=== PATIENT | female | born 1950 | race Caucasian/White ===

== ENCOUNTER 2023-11-24 10:54 | Outpatient (AMB) | payer MEDICARE, MEDICAID, SELFPAY ==
--- NOTE | 2023-11-24 11:02 | A.OFFVIS_ITS ---
Intake Vital Signs 11/24/23 11:28 Height 5 ft 5 in Weight 252 lb BMI 41.9 Intake Visit Reasons: [employer]-Left pain-Fell two weeks ago Intake Note: Cathi is a 73 year old female who presents as a new patient with Right hip pain knee pain. Patient states she fell about 2 and half weeks ago. The patient states, I was making my bed when 1 of the sheets let go and I fell directly onto my butt?. The patient states that she has been weight-bearing as tolerated using a rolling walker. She has taken Tylenol and tramadol which gave her mild relief. Most of the discomfort is along the posterior aspect of her right hip. She did undergo right hip hemiarthroplasty surgery in 2017 performed in [place] by another orthopedic surgeon. Allergies bee pollen [BEE STINGS] Allergy (Severe, Verified 11/24/23 11:31) ANAPHYLAXIS nut - unspecified [nut] Allergy (Severe, Verified 11/24/23 11:31) ANAPHYLAXIS Penicillins [PENICILLINS] Allergy (Severe, Verified 11/24/23 11:31) HIVES, THROAT CLOSING shellfish derived Allergy (Severe, Verified 11/24/23 11:31) ANAPHYLAXIS acetaminophen [From PERCOCET] Allergy (Unknown, Verified 11/24/23 11:31) HIVES ciprofloxacin [From CIPRO] Allergy (Unknown, Verified 11/24/23 11:31) HIVES codeine [CODEINE] Allergy (Unknown, Verified 11/24/23 11:31) HIVES fluconazole [From DIFLUCAN] Allergy (Unknown, Verified 11/24/23 11:31) HIVES Sulfa (Sulfonamide Antibiotics) [SULFA(SULFONAMIDE ANTIBIOTICS)] Allergy (Unknown, Verified 11/24/23 11:31) HIVES From CIPRO Allergy (Unknown, Uncoded 05/30/20 17:27) HIVES From FLOVENT HFA Allergy (Unknown, Uncoded 05/30/20 17:27) HIVES From PERCOCET Allergy (Unknown, Uncoded 05/30/20 17:27) HIVES Medication List - Last Reconciled 11/24/23 by Chad Wolff MD albuterol sulfate 90 mcg/actuation 2 puffs inhalation Q6H PRN atorvastatin 20 mg PO DAILY bupropion HCl 300 mg PO QAM cetirizine 10 mg PO DAILY citalopram 40 mg PO DAILY dicyclomine mg PO doxycycline hyclate 100 mg PO BID epinephrine 0.3 mg IM DIRECTED famotidine 20 mg PO DAILY fluticasone propionate 220 mcg/actuation 1 puff inhalation BID furosemide mg PO gabapentin 600 mg PO TID levothyroxine 88 mcg PO DAILY lorazepam 0.5 mg PO DAILY PRN omeprazole 40 mg PO TID topiramate mg PO tramadol 50 mg PO Q6H PRN warfarin mg PO PFSH Surgical History (Updated 11/24/23 @ 11:39 by Kelsy Galdamez CMA) Hx of section H/O: hysterectomy History of surgery on right wrist History of surgery on left wrist History of hip surgery (~2017) Physical Exam Vital Signs: BMI result Body Mass Index 41.9 Const Other: Well-nourished well-developed very friendly female awake alert and oriented x3 in no acute distress Extrem Other: Bilateral lower extremity examination shows good capillary refill, no skin lesions noted, normal sensation light touch Right hip examination shows mild discomfort range of motion, minimal tenderness over her bursa, no overlying skin lesions Results Reviewed Results Reviewed: X-rays of the patient's right hip show a hemiarthroplasty in good position with no signs of loosening, there is a small avulsion fracture along the tip of the greater trochanter of unclear chronicity Assessment & Plan Assessment & Plan (1) Right hip pain: Code(s): M25.551 - Pain in right hip Plan Ms. White presents with right hip discomfort after falling onto the posterior aspect of her right hip 2 weeks ago of unclear etiology. In order to rule out extension of her greater trochanteric avulsion fracture into the proximal femur I will order a CT scan of her right hip. I will contact her by phone once the results are available. She will continue with her activity modifications in the meantime. Feel free to call me at any time should questions regarding her orthopedic management arise. I spent 22 minutes in reviewing the patient's records and imaging studies, seeing the patient and documenting in the medical record. Orders: Orders XR hip RT min 2V Today M25.551 - Pain in right hip XR knee LT 3V Today M25.562 - Pain in left knee CT hip RT wo IV con Today M25.551 - Pain in right hip Coding Level of Care Code New Pt Level 2 (83866) Diagnoses Right hip pain M25.551
[2023-11-24 11:28] VITALS: BMI 41.9
== END 2023-11-24 11:47 | disposition home or self-care (01) ==
PROVIDERS: PCP Internal Medicine; Visit Provider Orthopaedic Surgery
DX: M25.551 Pain in right hip (principal)
CPT/HCPCS: 99202

== ENCOUNTER 2023-11-24 11:18 | Outpatient (REF) | payer MEDICARE, MEDICAID, SELFPAY ==
--- NOTE | ~2023-11-24 | XR_ITS ---
EXAMINATION: XR HIP, RIGHT CLINICAL INFORMATION: Right hip pain. COMPARISON: None available. TECHNIQUE: Single view pelvis with 2 additional views of the right hip. FINDINGS: A right total hip prosthesis is present. The prosthesis is in good position. No evidence of a periprosthetic fracture. There is some chronic changes seen at the greater and lesser trochanters probably secondary to old fracture. Mild degenerative changes are present left hip. XR/XR hip RT min 2V IMPRESSION: Right hip prosthesis in good position without evidence of complication.
== END 2023-11-24 11:19 | disposition home or self-care (01) ==
LOC: HO.HOSX 11:18
PROVIDERS: Visit Provider Orthopaedic Surgery
DX: M25.551 Pain in right hip (principal)
CPT/HCPCS: 73502; 99202

== ENCOUNTER 2024-02-17 06:49 | Outpatient (REF) | payer MEDICARE, MEDICAID, SELFPAY ==
--- NOTE | ~2024-02-17 | XR_ITS ---
EXAMINATION: XR BILATERAL HIPS WITH AP PELVIS CLINICAL INFORMATION: Pain in right hip. COMPARISON: November 24, 2023. TECHNIQUE: 2 AP views of the pelvis as well as frog lateral views of each hip. FINDINGS: Degenerative changes in the imaged lower lumbar spine. Pubic symphysis is maintained. Bones are diffusely demineralized. Redemonstration of right total hip prosthesis with cerclage wire which is stable in position. Hardware appears intact. Redemonstration of lucencies and sequela of possible prior fractures of the right hip in the regions of the greater and lesser trochanters for which correlation with clinical exam recommended to determine further management. Mild degenerative changes in the left hip with joint space narrowing and hypertrophic change. Amorphous soft tissue calcifications are incompletely imaged in the proximal left thigh. Vascular calcifications in the proximal right thigh. Scattered punctate radiodensities overlying the right hemipelvis, increased, possibly related to ingested material. XR/XR hips LANDON min 3V IMPRESSION: 1. Redemonstration of right total hip prosthesis with cerclage wire which is stable in position. Hardware appears intact. Redemonstration of lucencies and sequela of possible prior fractures of the right hip in the regions of the greater and lesser trochanters for which correlation with clinical exam is recommended to determine further management. 2. Mild degenerative changes in the left hip. 3. Amorphous soft tissue calcifications are incompletely imaged in the proximal left thigh. Vascular calcifications in the proximal right thigh. 4. Scattered punctate radiodensities overlying the right hemipelvis, increased, possibly related to ingested material.
== END 2024-02-17 06:50 | disposition home or self-care (01) ==
LOC: HO.HOSX 06:49
PROVIDERS: Visit Provider Orthopaedic Surgery
DX: M25.551 Pain in right hip (principal); M25.562 Pain in left knee
CPT/HCPCS: 73522; 99212

== ENCOUNTER 2024-02-17 11:04 | Outpatient (AMB) | payer MEDICARE, MEDICAID, SELFPAY ==
--- NOTE | 2024-02-17 11:05 | MHC.OFFVIS ---
Intake Visit Reasons: Left Hip OA Intake Note: Cathi 73 yr old female presents today with complaints of mild intermittent discomfort in both of her hips. The patient did undergo right hip hemiarthroplasty surgery in 2017 by another surgeon in [place]. She fell onto her right hip earlier this year and suffered a minimally displaced greater trochanteric fracture. She continues with her morning physical therapy exercises. She takes tramadol once a day for her discomfort. The patient also has chronic low back pain. She wishes to avoid further surgery if possible. She also has intermittent discomfort along the lateral aspect of her left hip. Allergies bee pollen [BEE STINGS] Allergy (Severe, Verified 02/17/24 11:05) ANAPHYLAXIS nut - unspecified [nut] Allergy (Severe, Verified 02/17/24 11:05) ANAPHYLAXIS Penicillins [PENICILLINS] Allergy (Severe, Verified 02/17/24 11:05) HIVES, THROAT CLOSING shellfish derived Allergy (Severe, Verified 02/17/24 11:05) ANAPHYLAXIS acetaminophen [From PERCOCET] Allergy (Unknown, Verified 02/17/24 11:05) HIVES ciprofloxacin [From CIPRO] Allergy (Unknown, Verified 02/17/24 11:05) HIVES codeine [CODEINE] Allergy (Unknown, Verified 02/17/24 11:05) HIVES fluconazole [From DIFLUCAN] Allergy (Unknown, Verified 02/17/24 11:05) HIVES Sulfa (Sulfonamide Antibiotics) [SULFA(SULFONAMIDE ANTIBIOTICS)] Allergy (Unknown, Verified 02/17/24 11:05) HIVES From CIPRO Allergy (Unknown, Uncoded 02/17/24 11:05) HIVES From FLOVENT HFA Allergy (Unknown, Uncoded 02/17/24 11:05) HIVES From PERCOCET Allergy (Unknown, Uncoded 02/17/24 11:05) HIVES Medication List - Last Reconciled 02/17/24 by Chad Wolff MD albuterol sulfate 90 mcg/actuation 2 puffs inhalation Q6H PRN atorvastatin 20 mg PO DAILY bupropion HCl XL 300 mg PO QAM cetirizine 10 mg PO DAILY citalopram 40 mg PO DAILY dicyclomine mg PO epinephrine 0.3 mg IM DIRECTED famotidine 20 mg PO DAILY fluticasone propionate 220 mcg/actuation 1 puff inhalation BID furosemide mg PO gabapentin 600 mg PO TID levothyroxine 88 mcg PO DAILY lorazepam 0.5 mg PO DAILY PRN omeprazole 40 mg PO TID topiramate mg PO tramadol 50 mg PO Q6H PRN warfarin mg PO PFSH Surgical History (Updated 11/24/23 @ 11:39 by Kelsy Galdamez CMA) Hx of section H/O: hysterectomy History of surgery on right wrist History of surgery on left wrist History of hip surgery (~2017) Physical Exam Const Other: Well-nourished well-developed very friendly female awake alert and oriented x3 in no acute distress Extrem Other: Bilateral lower extremity examination shows good capillary refill, no skin lesions noted, normal sensation light touch Right hip examination shows that the surgical incision is well healed, no erythema, minimal discomfort with range of motion, mild tenderness over her greater trochanteric bursa Left hip examination shows minimal tenderness over her bursa, minimal discomfort with range of motion Results Reviewed Results Reviewed: X-rays of the patient's right hip taken today show a hemiarthroplasty in good position with no signs of loosening, there does remain a small avulsion fracture of the greater trochanter with minimal displacement Left hip x-ray show mild joint space narrowing, no acute bony abnormalities Assessment & Plan Assessment & Plan (1) Right hip pain: Code(s): M25.551 - Pain in right hip Category: Medical (2) Left knee pain: Code(s): M25.562 - Pain in left knee Category: Medical Plan Ms. White presents with left hip discomfort due to greater trochanteric bursitis as well as right hip discomfort due to greater trochanteric bursitis as well as a small avulsion fracture from her greater trochanter. The patient does not appear to have any loosening of her hemiarthroplasty. I had a lengthy discussion with the patient regarding the treatment options. At this point the patient's symptoms are tolerable to her. She will continue taking tramadol as needed for her discomfort. She will continue with her home exercise program. She will contact me prior to her follow-up appointment in 2-3 months should any questions or concerns arise. Feel free to call me at any time should questions regarding her orthopedic management arise. I spent 21 minutes in reviewing the patient's records and imaging studies, seeing the patient and documenting in the medical record. Coding Level of Care Code Est Pt Level 3 (50625) Diagnoses Right hip pain M25.551 Left knee pain M25.562
== END 2024-02-17 11:43 | disposition home or self-care (01) ==
PROVIDERS: PCP Internal Medicine; Visit Provider Orthopaedic Surgery
DX: M25.551 Pain in right hip (principal); M25.562 Pain in left knee
CPT/HCPCS: 99213

== ENCOUNTER 2024-05-25 14:06 | Outpatient (AMB) | payer SELFPAY ==
[2024-05-25 14:13] VITALS: BMI 41.9
--- NOTE | 2024-05-25 14:13 | MHC.OFFVIS ---
Vital Signs 05/25/24 14:13 Height 5 ft 5 in Weight 252 lb BMI 41.9 Intake Visit Reasons: O/V Left Hip OA 3 mth follow up Intake Note: Cathi is a 73 year old female that presents herself today for follow up. The patient reports mild intermittent discomfort in both of her hips. She continues walk with a cane. The patient states that in March she did fall and suffer a left humerus fracture. She has been going to physical therapy which has improved her range of motion. Allergies bee pollen [BEE STINGS] Allergy (Severe, Verified 02/17/24 11:05) ANAPHYLAXIS nut - unspecified [nut] Allergy (Severe, Verified 02/17/24 11:05) ANAPHYLAXIS Penicillins [PENICILLINS] Allergy (Severe, Verified 02/17/24 11:05) HIVES, THROAT CLOSING shellfish derived Allergy (Severe, Verified 02/17/24 11:05) ANAPHYLAXIS acetaminophen [From PERCOCET] Allergy (Unknown, Verified 02/17/24 11:05) HIVES ciprofloxacin [From CIPRO] Allergy (Unknown, Verified 02/17/24 11:05) HIVES codeine [CODEINE] Allergy (Unknown, Verified 02/17/24 11:05) HIVES fluconazole [From DIFLUCAN] Allergy (Unknown, Verified 02/17/24 11:05) HIVES Sulfa (Sulfonamide Antibiotics) [SULFA(SULFONAMIDE ANTIBIOTICS)] Allergy (Unknown, Verified 02/17/24 11:05) HIVES From CIPRO Allergy (Unknown, Uncoded 02/17/24 11:05) HIVES From FLOVENT HFA Allergy (Unknown, Uncoded 02/17/24 11:05) HIVES From PERCOCET Allergy (Unknown, Uncoded 02/17/24 11:05) HIVES Medication List - Last Reconciled 05/25/24 by Chad Wolff MD albuterol sulfate 90 mcg/actuation 2 puffs inhalation Q6H PRN atorvastatin 20 mg PO DAILY bupropion HCl XL 300 mg PO QAM cetirizine 10 mg PO DAILY citalopram 40 mg PO DAILY dicyclomine mg PO epinephrine 0.3 mg IM DIRECTED famotidine 20 mg PO DAILY fluticasone propionate 220 mcg/actuation 1 puff inhalation BID furosemide mg PO gabapentin 600 mg PO TID levothyroxine 88 mcg PO DAILY lorazepam 0.5 mg PO DAILY PRN omeprazole 40 mg PO TID topiramate mg PO tramadol 50 mg PO Q6H PRN warfarin mg PO PFSH Surgical History (Updated 11/24/23 @ 11:39 by Kelsy Galdamez CMA) Hx of section H/O: hysterectomy History of surgery on right wrist History of surgery on left wrist History of hip surgery (~2017) Physical Exam Vital Signs: BMI result Body Mass Index 41.9 Extrem Other: Bilateral hip examination shows minimal discomfort with range of motion, mild tenderness over her bursa, no overlying skin lesions Assessment & Plan Assessment & Plan (1) Bilateral hip bursitis: Code(s): M70.71 - Other bursitis of hip, right hip; M70.72 - Other bursitis of hip, left hip Category: Medical Plan Ms. White presents with intermittent discomfort along the lateral aspects of both of her hips due to greater trochanteric bursitis. I had a lengthy discussion with the patient regarding the treatment options. At this point the patient's symptoms are tolerable to her. She will continue with her home exercise program. She will follow up with me on an as-needed basis should her symptoms worsen in any way. Feel free to call me at any time should questions regarding her orthopedic management arise. I spent 22 minutes in reviewing the patient's records and imaging studies, seeing the patient and documenting in the medical record. Coding Level of Care Code Est Pt Level 3 (97521) Complex EM visit Add On G2211 Diagnoses Bilateral hip bursitis M70.71; M70.72
== END 2024-05-25 14:43 | disposition home or self-care (01) ==
PROVIDERS: PCP Internal Medicine; Visit Provider Orthopaedic Surgery
DX: M70.71 Other bursitis of hip, right hip (principal); M70.72 Other bursitis of hip, left hip
CPT/HCPCS: 99213

== ENCOUNTER → 2024-05-25 14:06 | Outpatient (BNVA) | payer MEDICAID, SELFPAY | PROVIDERS: PCP Internal Medicine; Visit Provider Orthopaedic Surgery | DX: M70.71 Other bursitis of hip, right hip (principal); M70.72 Other bursitis of hip, left hip | CPT/HCPCS: 99212 ==

== ENCOUNTER 2024-06-22 15:27 | Emergency (ER) | payer MEDICARE, MEDICAID, SELFPAY ==
--- NOTE | ~2024-06-22 | CT_ITS ---
EXAMINATION: CT HEAD WITHOUT CONTRAST CT FACIAL BONES WITHOUT CONTRAST CT CERVICAL SPINE WITHOUT CONTRAST CLINICAL INFORMATION: Fall. Head strike. Patient on blood thinners. COMPARISON: CT head and cervical spine from 03/29/2012. TECHNIQUE: Imaging was performed from the skull base to vertex without intravenous administration of contrast. In addition, helical noncontrast CT imaging was acquired through the cervical spine and facial bones and source images were reviewed along with axial reconstructions and sagittal and coronal MPRs. This CT examination was performed using dose optimization techniques as appropriate, variously including the following: *Automated exposure control. *Adjustment of mA and/or kV according to patient size (this includes techniques or standardized protocols for targeted exams where dose is matched to indication/reason for exam; i.e. extremities or head). *Use of iterative reconstruction technique. DLP: 1249 mGy-cm FINDINGS: Head: There is no evidence of acute intracranial hemorrhage or edematous territorial infarction. Gonzalez-white matter differentiation is preserved. Scattered and partially confluent hypoattenuation in the periventricular and deep white matter are consistent with moderate to severe microangiopathy. The ventricles are normal in morphology and size. No evidence for obstructive hydrocephalus. No abnormal mass effect or midline shift. No extra-axial fluid collections. Calcific atherosclerotic disease of the intracranial internal carotid and vertebral arteries. No hyperdense vessel sign. No acute soft tissue or osseous abnormalities. Maxillofacial Bones: No evidence of maxillofacial bone fractures. The zygomatic arches remain intact. No nasal bone fracture. The nasal septum remains midline. No evidence of mandibular or maxillary fracture. The mandibular condyles remain well-seated in their respective temporal articular grooves. Normal appearance of the intraconal and extraconal fat. No evidence of traumatic injury to the extraocular musculature or globes. Bilateral lens extractions. Mild mucosal thickening of the paranasal sinuses. The mastoid air cells and middle ear cavities are clear. No layering fluid collections. Multifocal odontogenic enamel erosions and periapical lucencies. Cervical Spine: The atlantooccipital and atlantoaxial articulations remain well aligned. Moderate degenerative arthropathy of the atlantodental articulation. Mild degenerative retrolisthesis of C4 on C5. Otherwise, there is anatomic alignment of the vertebral bodies and posterior elements. No evidence of acute fracture or subluxation. The vertebral body heights are maintained. Advanced degenerative disc disease at C4-C5. Mild to moderate degenerative disc disease at all additional levels. Facet and uncovertebral joint arthropathy leads to osseous encroachment on the neural foramina from C3-C6. There is no prevertebral soft tissue swelling. There is a 1.1 cm hypoattenuating nodule in the left thyroid lobe (no follow-up imaging recommended based on current guidelines at the time of examination). The remaining cervical soft tissues are within normal limits. The lung apices demonstrate no abnormalities. CT/CT cervical spine wo IV con IMPRESSION: 1. No evidence of acute intracranial hemorrhage or edematous territorial infarction. Moderate to severe underlying microangiopathy. 2. No evidence of acute fracture or traumatic subluxation of the cervical spine. Moderate multilevel degenerative spondyloarthropathy of the cervical spine. 3. No evidence of acute fracture of the maxillofacial bones. Electronically signed by: Luis Antonio Amado DO 06/22/2024 05:03 PM EDT
--- NOTE | ~2024-06-22 | XR_ITS ---
EXAMINATION: XR HAND, LEFT CLINICAL INFORMATION: Fall. Pain. Swelling. COMPARISON: None available. TECHNIQUE: Four views of the left hand. FINDINGS: There is osteopenia. No acute abnormality. No fracture or dislocation. Mild joint narrowing of the IP joints of the digits. There are marginal bone spurs at the DIP joints of the fourth and fifth finger. XR/XR hand LT min 3V IMPRESSION: 1. No acute abnormality. 2. Osteopenia. 3. Mild degenerative change of the hand. Electronically signed by: Albin Milton MD 06/22/2024 05:12 PM EDT
--- NOTE | 2024-06-22 15:34 | ED.GENADULT ---
HPI - General Adult General Chief complaint: Fall Stated complaint: catscan of the head/hit her head from PCP Time Seen by Provider: 06/22/24 21:41 Source: patient Limitations: no limitations History of Present Illness ED Provider: Zee erynolds PA-C HPI narrative: 73-year-old female with a history of aortic valve replacement now on Coumadin, presents after fall. [place] had [place] objects in her car, when she turned, she stepped on a rock and subsequently fell striking her head. There was no loss of consciousness. Patient was seen by her primary care, who told her to come to the ER for CT scans. Patient also complains of left hand pain. Related Data Home Medications ?Medication ?Instructions ?Recorded ?Confirmed albuterol sulfate 90 mcg/actuation 2 puff inhalation Q6H PRN wheezing 11/24/23 05/25/24 aerosol inhaler atorvastatin 20 mg tablet 20 mg PO DAILY 11/24/23 05/25/24 bupropion HCl 300 mg 24 hr tablet, 300 mg PO QAM 11/24/23 05/25/24 extended release cetirizine 10 mg tablet 10 mg PO DAILY 11/24/23 05/25/24 citalopram 40 mg tablet 40 mg PO DAILY 11/24/23 05/25/24 dicyclomine 10 mg capsule mg PO 11/24/23 05/25/24 epinephrine 0.3 mg/0.3 mL 0.3 mg IM DIRECTED allergies 11/24/23 05/25/24 injection, auto-injector famotidine 20 mg tablet 20 mg PO DAILY 11/24/23 05/25/24 fluticasone propionate 220 1 puff inhalation BID 11/24/23 05/25/24 mcg/actuation HFA aerosol inhaler furosemide 20 mg tablet mg PO 11/24/23 05/25/24 gabapentin 600 mg tablet 600 mg PO TID 11/24/23 05/25/24 levothyroxine 88 mcg tablet 88 mcg PO DAILY 11/24/23 05/25/24 lorazepam 0.5 mg tablet 0.5 mg PO DAILY PRN anxiety 11/24/23 05/25/24 omeprazole 40 mg capsule,delayed 40 mg PO TID 11/24/23 05/25/24 release topiramate 100 mg tablet mg PO 11/24/23 05/25/24 tramadol 50 mg tablet 50 mg PO Q6H PRN 11/24/23 05/25/24 warfarin 5 mg tablet mg PO 11/24/23 05/25/24 Allergies Allergy/AdvReac Type Severity Reaction Status Date / Time bee pollen [BEE STINGS] Allergy Severe ANAPHYLAXIS Verified 06/22/24 15:38 nut - unspecified [nut] Allergy Severe ANAPHYLAXIS Verified 06/22/24 15:38 Penicillins [PENICILLINS] Allergy Severe HIVES, Verified 06/22/24 15:38 THROAT CLOSING shellfish derived Allergy Severe ANAPHYLAXIS Verified 06/22/24 15:38 acetaminophen [From PERCOCET] Allergy Unknown HIVES Verified 06/22/24 15:38 ciprofloxacin [From CIPRO] Allergy Unknown HIVES Verified 06/22/24 15:38 codeine [CODEINE] Allergy Unknown HIVES Verified 06/22/24 15:38 fluconazole [From DIFLUCAN] Allergy Unknown HIVES Verified 06/22/24 15:38 Sulfa (Sulfonamide Allergy Unknown HIVES Verified 06/22/24 15:38 Antibiotics) [SULFA(SULFONAMIDE ANTIBIOTICS)] From CIPRO Allergy Unknown HIVES Uncoded 06/22/24 15:38 From FLOVENT HFA Allergy Unknown HIVES Uncoded 06/22/24 15:38 From PERCOCET Allergy Unknown HIVES Uncoded 06/22/24 15:38 Review of Systems Constitutional: Constitutional: Denies fever(s) and Denies headache(s) ENT: Denies dizziness and Denies headache(s) Cardiovascular: Cardiovascular: Denies chest pain, Denies syncope, Denies Loss of Consciousness and Denies dyspnea Respiratory: Respiratory: Denies dyspnea Gastrointestinal: Gastrointestinal: Denies nausea and Denies vomiting Musculoskeletal: Musculoskeletal: Reports arthralgias and Reports stiffness Neurologic: Denies dizziness, Denies syncope and Denies headache(s) [facility] Past Medical History Attestation statement: The following information was validated with the patient. Surgical History (Updated 11/24/23 @ 11:39 by Kelsy Galdamez CMA) Hx of section H/O: hysterectomy History of surgery on right wrist History of surgery on left wrist History of hip surgery (~2017) Social History Social History Advance Directives: No Advance Directives Information Provided: Yes Physical Exam ED Vital Signs: Vital Signs - 24 hr 06/22/24 15:35 06/22/24 21:06 Temperature 97.5 F 98.3 F Pulse Rate 81 84 Respiratory Rate 20 17 Blood Pressure 129/56 L 142/61 H Pulse Oximetry 96 97 Oxygen Delivery Method Room Air Room Air BMI result Body Mass Index 40.3 Const Other: Alert, well in appearance, no obvious signs of head trauma on exam Orientation/consciousness: patient oriented x3 Resp Effort & Inspection: normal respiratory effort Cardio Other: Normal peripheral perfusion Skin Other: Warm dry no rash Neuro General: patient oriented x3 and no focal motor deficits Extrem Other: Swelling and ecchymosis noted over the dorsum of the left hand, she has full range of motion in flexion extension of MCP, PIP and DIPJ Psych Other: Calm cooperative NIH Stroke Scale Internal: Initial- Upon Arrival Time: 15:38 Level of Consciousness: Alert Level of Consciousness Questions: Answers both questions correctly Level of Consciousness Commands: Performs both tasks correctly Best Gaze: Normal Visual: No visual loss Facial Palsy: Normal Motor Arm (Right): No drift Motor Arm (Left): No drift Motor Leg (Right): No drift Motor Leg (Left): No drift Limb Ataxia: Absent Sensory: Normal Best Language: No aphasia Dysarthia: Normal Extinction and Inattention: No abnormality Score: 0 Course Course Course Narrative: This is a rapid medical exam performed by Gilmer Allen NP: Additional HPI, ROS, PE not included below will be deferred to primary provider. Patient is a 73-year-old female presenting from PCP office for head CT. States that she fell yesterday, tripped due to back pain. Also fell earlier this week. Yesterday she fell forward and bumped her head on a rock on the ground, has had a headache since. She is on coumadin. Denies LOC. States headache is 7/10 currently. Plan: CT head, facial bones, c-soine Medical Decision Making Medical Decision Making MDM Narrative: 73-year-old female with a history of aortic valve replacement now on Coumadin, presents after fall. Patient [place], she had [place] objects in her car, when she turned, she stepped on a rock and subsequently fell striking her head. There was no loss of consciousness. Patient was seen by her primary care, who told her to come to the ER for CT scans. Patient also complains of left hand pain. Problem: On Coumadin History: Per patient I have considered the following differential diagnoses: Intracranial hemorrhage, cervical spine injury, fracture, dislocation, contusion Plan: The patient is assessment began out in triage, scans of her head neck max face and hand were obtained. Everything is negative. This was a mechanical fall not syncope. She has been ambulatory since the incident, she is eager for discharge. I have independently reviewed the following tests: CT brain, cervical spine and max face:CT HEAD WITHOUT CONTRAST CT FACIAL BONES WITHOUT CONTRAST CT CERVICAL SPINE WITHOUT CONTRAST CLINICAL INFORMATION: Fall. Head strike. Patient on blood thinners. COMPARISON: CT head and cervical spine from 03/29/2012. TECHNIQUE: Imaging was performed from the skull base to vertex without intravenous administration of contrast. In addition, helical noncontrast CT imaging was acquired through the cervical spine and facial bones and source images were reviewed along with axial reconstructions and sagittal and coronal MPRs. This CT examination was performed using dose optimization techniques as appropriate, variously including the following: *Automated exposure control. *Adjustment of mA and/or kV according to patient size (this includes techniques or standardized protocols for targeted exams where dose is matched to indication/reason for exam; i.e. extremities or head). *Use of iterative reconstruction technique. DLP: 1249 mGy-cm FINDINGS: Head: There is no evidence of acute intracranial hemorrhage or edematous territorial infarction. Gonzalez-white matter differentiation is preserved. Scattered and partially confluent hypoattenuation in the periventricular and deep white matter are consistent with moderate to severe microangiopathy. The ventricles are normal in morphology and size. No evidence for obstructive hydrocephalus. No abnormal mass effect or midline shift. No extra-axial fluid collections. Calcific atherosclerotic disease of the intracranial internal carotid and vertebral arteries. No hyperdense vessel sign. No acute soft tissue or osseous abnormalities. Maxillofacial Bones: No evidence of maxillofacial bone fractures. The zygomatic arches remain intact. No nasal bone fracture. The nasal septum remains midline. No evidence of mandibular or maxillary fracture. The mandibular condyles remain well-seated in their respective temporal articular grooves. Normal appearance of the intraconal and extraconal fat. No evidence of traumatic injury to the extraocular musculature or globes. Bilateral lens extractions. Mild mucosal thickening of the paranasal sinuses. The mastoid air cells and middle ear cavities are clear. No layering fluid collections. Multifocal odontogenic enamel erosions and periapical lucencies. Cervical Spine: The atlantooccipital and atlantoaxial articulations remain well aligned. Moderate degenerative arthropathy of the atlantodental articulation. Mild degenerative retrolisthesis of C4 on C5. Otherwise, there is anatomic alignment of the vertebral bodies and posterior elements. No evidence of acute fracture or subluxation. The vertebral body heights are maintained. Advanced degenerative disc disease at C4-C5. Mild to moderate degenerative disc disease at all additional levels. Facet and uncovertebral joint arthropathy leads to osseous encroachment on the neural foramina from C3-C6. There is no prevertebral soft tissue swelling. There is a 1.1 cm hypoattenuating nodule in the left thyroid lobe (no follow-up imaging recommended based on current guidelines at the time of examination). The remaining cervical soft tissues are within normal limits. The lung apices demonstrate no abnormalities. CT/CT head/brain wo IV con IMPRESSION: 1. No evidence of acute intracranial hemorrhage or edematous territorial infarction. Moderate to severe underlying microangiopathy. 2. No evidence of acute fracture or traumatic subluxation of the cervical spine. Moderate multilevel degenerative spondyloarthropathy of the cervical spine. 3. No evidence of acute fracture of the maxillofacial bones. Electronically signed by: Luis Antonio Amado DO 06/22/2024 05:03 PM EDT RP hand xray: XR HAND, LEFT CLINICAL INFORMATION: Fall. Pain. Swelling. COMPARISON: None available. TECHNIQUE: Four views of the left hand. FINDINGS: There is osteopenia. No acute abnormality. No fracture or dislocation. Mild joint narrowing of the IP joints of the digits. There are marginal bone spurs at the DIP joints of the fourth and fifth finger. XR/XR hand LT min 3V IMPRESSION: 1. No acute abnormality. 2. Osteopenia. 3. Mild degenerative change of the hand. Electronically signed by: Albin Milton MD 06/22/2024 05:12 PM EDT RP Discharge Plan Discharge Clinical Impression: Contusion Patient Disposition: Home, Self-Care Instructions: Bone Bruise (ED) Additional Instructions: The CT scan of your face, head and neck were all normal, the x-ray of the hand was normal, you sustained contusions, this is a fancy word for a bruise. See home care instructions. Follow up with your primary care provider as needed Prescriptions: No Action tramadol 50 mg tablet 50 mg PO Q6H PRN atorvastatin 20 mg tablet 20 mg PO DAILY famotidine 20 mg tablet 20 mg PO DAILY levothyroxine 88 mcg tablet 88 mcg PO DAILY citalopram 40 mg tablet 40 mg PO DAILY furosemide 20 mg tablet PO gabapentin 600 mg tablet 600 mg PO TID bupropion HCl 300 mg tablet extended release 24 hr 300 mg PO QAM dicyclomine 10 mg capsule PO topiramate 100 mg tablet PO fluticasone propionate 220 mcg/actuation HFA aerosol inhaler 1 puff inhalation BID lorazepam 0.5 mg tablet 0.5 mg PO DAILY PRN (Reason: anxiety) warfarin 5 mg tablet PO epinephrine 0.3 mg/0.3 mL auto-injector 0.3 mg IM DIRECTED albuterol sulfate 90 mcg/actuation HFA aerosol inhaler 2 puff inhalation Q6H PRN (Reason: wheezing) omeprazole 40 mg capsule,delayed release(DR/EC) 40 mg PO TID cetirizine 10 mg tablet 10 mg PO DAILY Print Language: Frisian
[2024-06-22 15:35] VITALS: BP 129/56; PULSE 81; RESP 20; TEMP 36.4; O2SAT 96; BMI 40.3
[2024-06-22 21:06] VITALS: BP 142/61; PULSE 84; RESP 17; TEMP 36.8; O2SAT 97
[2024-06-22 22:14] VITALS: BP 142/61; PULSE 84; RESP 17; TEMP 36.8; O2SAT 97
== END 2024-06-22 22:47 | disposition home or self-care (01) ==
PROVIDERS: Emergency Provider Emergency Medicine; PCP Internal Medicine
DX: S60.222A Contusion of left hand, initial encounter (principal); R51.9 Headache, unspecified; M54.2 Cervicalgia; M79.642 Pain in left hand; W01.0XXA Fall on same level from slipping, tripping and stumbling without subsequent striking against object, initial encounter; Y93.89 Activity, other specified; Y92.89 Other specified places as the place of occurrence of the external cause; Y99.8 Other external cause status; Z79.899 Other long term (current) drug therapy
CPT/HCPCS: 70450; 70486; 72125; 73130; 99283; 99284

== ENCOUNTER 2024-08-22 14:11 | Outpatient (AMB) | payer MEDICAID, SELFPAY ==
--- NOTE | 2024-08-22 14:55 | A.OFFVIS_ITS ---
Vital Signs 08/22/24 14:57 Height 5 ft 5 in Weight 233 lb BMI 38.8 Intake Visit Reasons: O/V Left Hip OA 3 mth follow up Intake Note: Cathi is a 74 year old female that presents herself today for follow up on her left hip osteoarthritis. She reports mild intermittent discomfort along the lateral aspect of her left hip. The patient is most concerned today about pro gressively worsening low back pain. She states that she has seen Dr. Acosta in the past. She states that she is due to get an MRI of her lumbar spine over the next few weeks. She continues to walk with a cane. Allergies bee pollen [BEE STINGS] Allergy (Severe, Verified 08/22/24 14:58) ANAPHYLAXIS nut - unspecified [nut] Allergy (Severe, Verified 08/22/24 14:58) ANAPHYLAXIS Penicillins [PENICILLINS] Allergy (Severe, Verified 08/22/24 14:58) HIVES, THROAT CLOSING shellfish derived Allergy (Severe, Verified 08/22/24 14:58) ANAPHYLAXIS acetaminophen [From PERCOCET] Allergy (Unknown, Verified 08/22/24 14:58) HIVES ciprofloxacin [From CIPRO] Allergy (Unknown, Verified 08/22/24 14:58) HIVES codeine [CODEINE] Allergy (Unknown, Verified 08/22/24 14:58) HIVES fluconazole [From DIFLUCAN] Allergy (Unknown, Verified 08/22/24 14:58) HIVES Sulfa (Sulfonamide Antibiotics) [SULFA(SULFONAMIDE ANTIBIOTICS)] Allergy (Unknown, Verified 08/22/24 14:58) HIVES From CIPRO Allergy (Unknown, Uncoded 08/22/24 14:58) HIVES From FLOVENT HFA Allergy (Unknown, Uncoded 08/22/24 14:58) HIVES From PERCOCET Allergy (Unknown, Uncoded 08/22/24 14:58) HIVES Medication List - Last Reconciled 08/22/24 by Chad Wolff MD albuterol sulfate 90 mcg/actuation 2 puffs inhalation Q6H PRN atorvastatin 20 mg PO DAILY bupropion HCl XL 300 mg PO QAM cetirizine 10 mg PO DAILY citalopram 40 mg PO DAILY dicyclomine mg PO epinephrine 0.3 mg IM DIRECTED famotidine 20 mg PO DAILY fluticasone propionate 220 mcg/actuation 1 puff inhalation BID furosemide mg PO gabapentin 600 mg PO TID levothyroxine 88 mcg PO DAILY lorazepam 0.5 mg PO DAILY PRN omeprazole 40 mg PO TID topiramate mg PO tramadol 50 mg PO Q6H PRN warfarin mg PO PFSH Surgical History (Updated 11/24/23 @ 11:39 by Kelsy Galdamez CMA) Hx of section H/O: hysterectomy History of surgery on right wrist History of surgery on left wrist History of hip surgery (~2017) Social History Alcohol intake: never Patient Tobacco Use Status: Current everyday Tobacco user Tobacco use type: Cigarette Physical Exam Vital Signs: BMI result Body Mass Index 38.8 Const Other: Well-nourished well-developed very friendly female awake alert and oriented x3 in no acute distress Extrem Other: Left hip examination shows slightly decreased range of motion when compared to her right hip, mild pain with range of motion, no tenderness over her bursa Results Reviewed Results Reviewed: X-rays of the patient's right hip taken today show a hemiarthroplasty in good position with no signs of loosening, bony trabeculae crossing the previous greater trochanteric fracture site; left hip x-ray show moderate diffuse joint space narrowing, no acute bony abnormalities Assessment & Plan Assessment & Plan (1) Left hip pain: Code(s): M25.552 - Pain in left hip Category: Medical Plan Ms. White presents with intermittent left hip discomfort due to moderate degenerative joint disease. She also has low back pain which radiates down her right leg possibly due to lumbar stenosis or a disc herniation. At this point the patient's left hip pain is tolerable to her. She will follow up for her lumbar spine MRI as scheduled. She will follow up with me on an as-needed basis should her hip pain worsen in any way. Feel free to call me at any time should questions regarding her orthopedic management arise. I spent 20 minutes in reviewing the patient's records and imaging studies, seeing the patient and documenting in the medical record. Orders: Orders XR hip RT min 2V Today M25.551 - Pain in right hip Coding Level of Care Code Est Pt Level 3 (11189) Complex EM visit Add On G2211 Diagnoses Left hip pain M25.552
[2024-08-22 14:57] VITALS: BMI 38.8
== END 2024-08-22 15:27 | disposition home or self-care (01) ==
PROVIDERS: PCP Internal Medicine; Visit Provider Orthopaedic Surgery
DX: M25.552 Pain in left hip (principal)
CPT/HCPCS: 99213

== ENCOUNTER 2024-08-22 15:58 | Outpatient (REF) | payer MEDICARE, MEDICAID, SELFPAY ==
--- NOTE | ~2024-08-22 | XR_ITS ---
EXAMINATION: XR HIP RIGHT CLINICAL INFORMATION: Pain in right hip M25.551. COMPARISON: XR Right hip 11/24/2023 TECHNIQUE: Two views of the right hip. FINDINGS: Redemonstrated right hip arthroplasty with usual position and alignment. No radiographic evidence of acute periprosthetic fracture. No radiographic findings to suggest hardware complications. Cerclage wire in the proximal femur. Similar appearance of deformity of the greater and lesser trochanter.. Mild left hip arthritis. Diffuse bone demineralization. No acute fractures otherwise seen in the visualized bones. No suspicious soft tissue calcification. XR/XR hip RT min 2V IMPRESSION: Right hip arthroplasty with usual position and alignment. No radiographic evidence of complications. Study is assigned/presented to me for interpretation on Sep 29, 2024 Electronically signed by: Dagoberto Maldonado MD 09/29/2024 10:55 AM SHARON GILBERT
== END 2024-08-22 15:59 | disposition home or self-care (01) ==
LOC: HO.HOSX 15:58
PROVIDERS: Visit Provider Orthopaedic Surgery
DX: M25.551 Pain in right hip (principal)
CPT/HCPCS: 73502; 99212

== ENCOUNTER 2025-07-04 14:21 | Outpatient (AMB) | payer MEDICARE, MEDICAID, SELFPAY ==
--- OUTSIDE RECORDS SUMMARY | 2025-07-03 15:18 | XMS_ITS | Encounter Summary ---
Author Organization [facility] Address [address] [place] [address] Care Team Providers Care Admissions Clinician Name Role Phone Mary Ann Hickman MD Primary Care Provider [phone] Reason for Visit * Imaging (Routine) - Canceled Specialty Diagnoses / Procedures Referred By Justin dawn Referred To Contact Radiology Diagnoses Encounter for screening mammogram for breast cancer Procedures MG Mammo Digital Screening w Kervin bilat [facility], Self Referral [facility] Referral ID Status Reason Start Date Expiration Date V isits Requested Visits Authorized [id number] Canceled 06/29/2024 06/29/2025 1 1 Encounter Details Date Type Department Care Team (Latest Contact Info) Description 07/03/2025 3:18 PM EDT - 07/03/2025 11:59 PM EDT Hospital Encounter Radiology Department - [address] [phone] Encounter for screening mammogram for breast cancer Discharge Disposition: Home or Self Care Social History Tobacco Use Types Packs/Day Years Used Date Smoking Tobacco: Former Cigarettes Smokeless Tobacco: Never Alcohol Use Standard Drinks/Week Comments No 0 (1 standard drink = 0.6 oz pur e alcohol) Housing Instability Answer Date Recorde d Are you worried that in the next 2 months you may not have stable housing? No 02/28/2025 Food Access & Nutrition Answer Date Rec orded Do you have access to a vari ety of food including fruits and vegetables? No 02/28/2025 Access to Healthcare Answer Date Record ed Within the last 3 months, ho w many times did you visit the emergency department for your medical care? 5 02/28/2025 Health Literacy Answer Date Recorded How often do you need to hav e someone help you when you read instructions, pamphlets, or other written material from your doctor or pharmacy? Never 02/28/2025 Caregiver: How often do you need to have someone help you when you read instructions, pamphlets, or other written material from your doctor or pharmacy? Not on file 02/28/2025 Financial Risk Answer Date Recorded How hard is it for you to pa y for the very basics like food, housing, medical care, and air conditioning / heating? Very hard 02/28/2025 Transportation Answer Date Recorded Has the lack of transportati on kept you from meetings, work, or from getting things needed for daily living? No Has the lack of transportati on kept you from medical appointments or from getting medications? No 02/28/2025 Social Isolation Answer Date Recorded How often do you feel lonely or isolated from th ose around you? Never 02/28/2025 Food Risk Answer Date Recorded Within the past 12 months we worried whether our food would run out before we got money to buy more. Sometimes true 025 Within the past 12 months th e food we bought just didn't last and we didn't have money to get more. Never true 02/28/2025 Dependent Care Answer Date Recorded Do you need help finding or paying for care for your loved ones. For example, director child development center or elderly care for an older adult? Yes 02/28/2025 Education Answer Date Recorded Do you think completing more education or training, like finishing a GED, going to college, or learning a trade, would be helpful for you? No 02/28/2025 Employment and Income Answer Date Recor ded During the last four weeks, have you been actively looking for work? No 02/28/2025 Living Situation Answer Date Recorded What is your living situation? Unrecognized valu e 02/28/2025 Comments No Sex and Gender Information Value Date Recorded Sex Assigned at Not on file Legal Sex Female 1:07 AM EST Gender Identity Not on file Sexual Orientation Not on file documented as of this encounter Medications at Time of Discharge acetaminophen (TYLENOL) 500 mg tablet Take 1 tablet (500 mg total) by mouth. albuterol HFA (PROAIR HFA ; PROVENTIL HFA ; VENTOLIN HFA) 90 mcg/actuation inhaler Inhale 2 puffs by mouth. 01/17/2024 ASCORBIC ACID, VITAMIN C, ORAL Take by mouth. atorvastatin (LIPITOR) 20 mg tablet Take 1 tablet (20 mg total) by mouth 1 (one) time each day. 90 tablet 1 05/11/2025 buPROPion XL (WELLBUTRIN XL) 300 mg 24 hr tablet Take 1 tablet (300 mg total) by mouth 1 (one) time each day in the morning. 90 tablet 1 04/03/2025 CALCIUM CITRATE-VITAMIN D3 ORAL Take by mouth 1 (one) time each day. cetirizine (ZyrTEC) 10 mg tablet Take 1 tablet (10 mg total) by mouth. 04/09/2020 citalopram (CeleXA) 40 mg tablet Take 1 tablet (40 mg total) by mouth 1 (one) time each day. 90 tablet 1 04/05/2025 clotrimazole (LOTRIMIN) 1 % cream Apply topically 2 (two) times a day. 30 g 3 06/06/2025 cyanocobalamin (VITAMIN B-12) 1,000 mcg tablet Take 1 tablet (1,000 mcg total) by mouth. diphenhydrAMINE (BENADRYL) 25 mg tablet Take 1 tablet (25 mg total) by mouth 1 (one) time each day if needed. famotidine (PEPCID) 20 mg tablet Take 1 tablet (20 mg total) by mouth 2 (two) times a day. 180 tablet 04/24/2025 ferrous sulfate 325 mg (65 mg iron) EC tablet Take 1 tablet (325 mg total) by mouth 1 (one) time each day with breakfast. Do not crush, chew, or split. 90 each 1 03/01/2025 fluticasone propionate (FLONASE) 50 mcg/actuation nasal spray Administer 2 sprays into affected nostril(s). 01/22/2021 gabapentin (NEURONTIN) 600 mg tablet Take 1 tablet (600 mg total) by mouth 3 (three) times a day. 270 tablet 04/17/2025 levothyroxine (SYNTHROID, LEVOTHROID) 88 mcg tablet Take 1 tablet (88 mcg total) by mouth 1 (one) time each day. 01/04/2024 magnesium 250 mg tablet Take 1 tablet by mouth 1 (one) time each day. mirabegron (MYRBETRIQ) 25 mg 24 hr tablet Take 1 tablet (25 mg total) by mouth 1 (one) time each day. 30 each 3 06/07/2025 multivitamin (MULTIPLE VITAMINS ORAL) Take by mouth. nitroglycerin (NITROSTAT) 0.[address] 1 tablet (0.4 mg total) under the tongue every 5 (five) minutes if needed for chest pain. 90 tablet 03/01/2025 Prolia 60 mg/mL syringe syringe Inject 1 mL (60 mg total) under the skin. 10/31/2021 topiramate (TOPAMAX) 100 mg tablet Take 1 tablet (100 mg total) by mouth. 100 mg in AM and 200 mg in PM for headache prophylaxis 03/15/2020 vitamin B complex (B COMPLEX ORAL) Take by mouth. warfarin (COUMADIN) 5 mg tablet TAKE 2 TO 3 TABLETS BY MOUTH EVERY DAY. MAY CAUSE HEAVY BLEEDING.TK AT THE SAME TIME EVERY_DAY. DO NOT CHANGE DIETARY HABITS 270 tablet 1 06/04/2025 documented as of this encounter Discharge Disposition Disposition Code Departure Means Destination Home or Self Care documented in this encounter Plan of Treatment Upcoming Encounters Date Type Department Care Team (Late st Contact Info) Description 07/05/2025 2:45 PM EDT Clinical Support [facility] [address] [phone] 07/18/2025 11:00 AM EST Office Visit Orthopedic Surgery [facility] [address] [phone] Rebel Acharya DPM [address] [phone] 09/10/2025 3:15 PM EST Office Visit Urogynecology [address] [phone] Stefanie Alvarado MD [address] [place] [address] [address] [place] [address] 09/18/2025 11:30 AM EST Office Visit [address] [phone] Mary Ann Hickman MD [address] [place] [address] documented as of this encounter Procedures Procedure Name Priority Date/Time Associated Diagnosis Comments MG MAMMO DIGITAL SCREENING W KERVIN BILAT Routine 07/03/2025 3:30 PM EDT Encounter for screening mammogram for breast cancer documented in this encounter Results * (ABNORMAL) MG Mammo Digital Screening w Kervin bilat (07/03/2025 3:30 PM EDT) Anatomical Region Laterality Modality Breast Bilateral Mammography 07/04/2025 4:49 PM EDT Impressions 07/04/2025 4:52 PM EDT 1. Left: No mammographic evidence of malignancy 2. Right: Indeterminate medial posterior depth focal asymmetry 3. Scattered fibroglandular tissue BI-RADS CATEGORY: 0 - INCOMPLETE - NEED ADDITIONAL IMAGING EVALUATION RECOMMENDATION: Additional right breast imaging recommended. Right breast CC and MLO spot compression, full-field ML, targeted ultrasound Mammo Location: [facility], [address] [place] [address], [address], . -------- FINAL REPORT -------- Dictated By: Garett Kumar Dictated Date: 07/04/2025 16:49 ET Assigned Physician: Garett Kumar Reviewed and Electronically Signed By: Garett Kumar Signed Date: 07/04/2025 16:52 ET Workstation ID: [id number] Transcribed By: Self Edit Transcribed Date: 07/04/2025 16:49 ET Narrative 07/04/2025 4:52 PM EDT A BILATERAL DIGITAL 3D SCREENING MAMMOGRAPHY HISTORY: Routine screening. No family history of breast cancer. COMPARISON: Multiple priors dating back to 10/24/2020 Technique: Bilateral full field digital mammography (3D) was performed using standard CC and MLO projections CAD was used to evaluate this mammogram. FINDINGS: Right: Indeterminate medial posterior depth focal asymmetry. Left: No suspicious masses, groups of microcalcification or areas of architectural distortion identified. Stable typically benign parenchymal asymmetries. BREAST DENSITY: B - There are scattered areas of fibroglandular density. Procedure Note Garett Kumar MD - 07/04/2025 A BILATERAL DIGITAL 3D SCREENING MAMMOGRAPHY HISTORY: Routine screening. No family history of breast cancer. COMPARISON: Multiple priors dating back to 10/24/2020 Technique: Bilateral full field digital mammography (3D) was performedusing standard CC and MLO projections CAD was used to evaluate this mammogram. FINDINGS: Right: Indeterminate medial posterior depth focal asymmetry. Left: No suspicious masses, groups of microcalcification or areas ofarchitectural distortion identified. Stable typically benign parenchymalasymmetries. BREAST DENSITY: B - There are scattered areas of fibroglandular density. IMPRESSION: 1. Left: No mammographic evidence of malignancy 2. Right: Indeterminate medial posterior depth focal asymmetry 3. Scattered fibroglandular tissue BI-RADS CATEGORY: 0 - INCOMPLETE - NEED ADDITIONAL IMAGING EVALUATION RECOMMENDATION: Additional right breast imaging recommended. Right breast CC and MLO spotcompression, full-field ML, targeted ultrasound Mammo Location: [facility], [address] [place] [address], [address], . -------- FINAL REPORT -------- Dictated By: Garett Kumar Dictated Date: 07/04/2025 16:49 ET Assigned Physician: Garett Kumar Reviewed and Electronically Signed By: Garett Kumar Signed Date: 07/04/2025 16:52 ET Workstation ID: [id number] Transcribed By: Self Edit Transcribed Date: 07/04/2025 16:49 ET us Mary Ann Hickman MD IMG BI PROCEDURES Final Result documented in this encounter Visit Diagnoses Diagnosis Encounter for screening mammogram for breast cancer documented in this encounter Additional Health Concerns Assessment Noted Time PHQ-9 Depression Total Score: 4 06/18/20 25 10:47 AM EDT documented as of this encounter Care Teams Admissions Clinician Relationship Specialty Start Date End Date Mary Ann Hickman MD [address] [place] [phone] PCP - General Internal Medicine 08/03/24 documented as of this encounter
--- NOTE | 2025-07-04 14:34 | A.OFFVIS_ITS ---
Intake Visit Reasons: migraine Allergies bee pollen (BEE STINGS) Allergy (Severe, Verified 08/22/24 14:58) ANAPHYLAXIS nut - unspecified (nut) Allergy (Severe, Verified 08/22/24 14:58) ANAPHYLAXIS Penicillins (PENICILLINS) Allergy (Severe, Verified 08/22/24 14:58) HIVES, THROAT CLOSING shellfish derived Allergy (Severe, Verified 08/22/24 14:58) ANAPHYLAXIS acetaminophen (From PERCOCET) Allergy (Unknown, Verified 08/22/24 14:58) HIVES ciprofloxacin (From CIPRO) Allergy (Unknown, Verified 08/22/24 14:58) HIVES codeine (CODEINE) Allergy (Unknown, Verified 08/22/24 14:58) HIVES fluconazole (From DIFLUCAN) Allergy (Unknown, Verified 08/22/24 14:58) HIVES Sulfa (Sulfonamide Antibiotics) (SULFA(SULFONAMIDE ANTIBIOTICS)) Allergy (Unknown, Verified 08/22/24 14:58) HIVES From CIPRO Allergy (Unknown, Uncoded 08/22/24 14:58) HIVES From FLOVENT HFA Allergy (Unknown, Uncoded 08/22/24 14:58) HIVES From PERCOCET Allergy (Unknown, Uncoded 08/22/24 14:58) HIVES Medication List - Last Reconciled 07/04/25 by Monalisa Hartley MD albuterol sulfate 90 mcg/actuation 2 puffs inhalation Q6H PRN atorvastatin 20 mg PO DAILY bupropion HCl XL 300 mg PO QAM cetirizine 10 mg PO DAILY citalopram 40 mg PO DAILY dicyclomine mg PO epinephrine 0.3 mg IM DIRECTED famotidine 20 mg PO DAILY fluticasone propionate 220 mcg/actuation 1 puff inhalation BID furosemide mg PO gabapentin 600 mg PO TID levothyroxine 88 mcg PO DAILY magnesium 250 mg PO DAILY mirabegron ER 25 mg PO DAILY nitroglycerin 0.4 mg sublingual omeprazole 40 mg PO TID topiramate 100 mg orally 1 tab in the morning and 2 tabs at bedtime; 90 days tramadol 50 mg PO Q6H PRN warfarin 10 mg PO HPI Comments Details: ?Waking up with headaches almost every morning for 2 hrs. In September 2024, she fell and fractured right femur and had a heaven put in. Had multiple infections and needed 15 different operations for debridement. Was in Rehab and hospital for 5 months. Migraines are under control. Sleeping better 6-[address] Shows extensive white matter disease which was seen better on MRI of February 2013 MRI that showed extensive white matter lesions in the deep white matter as well as subcortical consistent with microvascular disease. Suffers from depression and panic disorder. She had an elevated sedimentation rate and had a temporal artery biopsy which was negative. She has a long-standing sleep problems with difficulty initiating and maintaining sleep. Seems to be related to anxiety. ?Hand symptoms have resolved. [facility] Medical History (Updated 07/04/25 @ 14:38 by Monalisa Hartley MD) Concussion Panic attack Depression Diabetes mellitus Hypercholesteremia HTN (hypertension) Surgical History (Updated 07/02/25 @ 14:52 by LEAH Dickson) H/O gastric bypass H/O aortic valve replacement Hx of section H/O: hysterectomy History of surgery on right wrist History of surgery on left wrist History of hip surgery (~2016) Social History Alcohol intake: never Patient Tobacco Use Status: Current everyday Tobacco user Tobacco use type: Cigarette Review of Systems Const Details: Sleep:? Difficulty getting to sleep?admits.? Difficulty maintaining sleep?admits .? Urge to move legs?admits.? Teeth grinding?denies.? Shouting or Kicking during sleep?denies.? Abnormal behavior during sleep?denies.? Excessive sleep?denies.? Snoring?denies.? Daytime sleepiness?denies.? ?? General/Constitutional:? Change in appetite?denies.? Chills?denies.? Fatigue?denies.? Fever?denies .? Weight gain?denies.? Weight loss?denies.? ?? Ophthalmologic:? Blurred vision?denies.? Diminished visual acuity?denies.? ?? ENT:? Stuffiness?denies.? Decreased hearing?denies.? Dry mouth?denies.? Ear pain?denies.? Nosebleed?denies.? Ringing in the ears?denies.? Sinus pain?denies .? Sore throat?denies.? Swollen glands?denies.? ?? Endocrine:? Cold intolerance?denies.? Excessive thirst?denies.? Frequent urination? denies.? Heat intolerance?denies.? ?? Respiratory:? Shortness of breath?denies.? Chest pain?denies.? Cough?denies.? ?? Breast:? Breast lump?denies.? Nipple discharge?denies.? ?? Cardiovascular:? Chest pain at rest?denies.? Chest pain with exertion?denies.? Claudication?denies.? Dizziness?denies.? Fluid accumulation in the legs?denies.? Irregular heartbeat?denies.? Palpitations?denies.? ?? Gastrointestinal:? Abdominal pain?denies.? Constipation?denies.? Diarrhea?denies.? Difficulty swallowing?denies.? Heartburn?denies.? Nausea?denies.? Rectal bleeding?denies.? ?? Hematology:? Easy bruising?admits.? Prolonged bleeding?admits.? ?? Genitourinary:? Frequent urination?admits.? Urgency?denies.? Incontinence?denies.? Erectile Dysfunction?denies.? ?? Musculoskeletal:? Neck pain?admits.? Back pain?admits.? Muscle aches?admits.? Painful joints?admits.? Sciatica?denies.? Weakness?denies.? ?? Podiatric:? Difficulty walking?denies.? Foot numbness?denies.? ?? Neurologic:? Difficulty swallowing?denies.? Balance difficulty?admits.? Coordination? normal.? Difficulty speaking?denies.? Dizziness?denies.? Fainting?denies.? Gait abnormality?denies.? Headache?admits.? Loss of strength?denies.? Loss of use of extremity?denies.? Low back pain?denies.? Memory loss?admits.? Seizures?denies.? Tics?denies.? Tingling/Numbness?denies.? Transient loss of vision?denies.? Tremor?denies.? ?? Psychiatric:? Anxiety?admits.? Auditory/visual hallucinations?denies.? Delusions?denies .? Depressed mood?admits.? Stressors?admits.? Substance abuse?denies.? Suicidal thoughts?denies.? ?? Physical Exam Neuro Other: General Examination: ? GENERAL APPEARANCE:?normal,?in no acute distress.? HEAD:?normocephalic,?atraumatic.? EYES:?sclera non-icteric,?conjunctiva clear.? EARS:?auditory canal clear,?tympanic membrane intact, clear.? NOSE:?no lesions.? ORAL CAVITY:?gums normal,?mucosa moist,?no lesions.? THROAT:?clear.? NECK/THYROID:?no cervical lymphadenopathy,?thyroid normal,?neck supple, full range of motion,?no carotid bruit.? SKIN:?no rashes,?no significant birthmarks.? HEART:?S1, S2 normal,?no murmurs.? LUNGS:?clear anteriorly and posteriorly.? CHEST:?no gross rib deformity,?clear to auscultation.? BACK:?normal exam of spine.? EXTREMITIES:?no edema.? PERIPHERAL PULSES:?normal.? PSYCH:?alert, oriented,?cognitive function intact,?cooperative with exam.? Neurological: ? Abnormal neurological findings:??none.? Mental Status:?alert and oriented X 3,?Normal attention, orientation, memory and affect.? Cranial Nerves:?Pupils are equal, round and reactive to light. Fundoscopy shows normal disc bilaterally. External occular muscles are intact. Visual doan are full, no ptosis. Face is symmetrical, no facial weakness or droop. Facial sensations are normal. Tongue protrudes in midline. Palate elevates symmetrically. Shoulder shrugging is normal..? Motor Examination:?Normal muscle tone, bulk and strength,?No atrophy or fasciculations,?No drift of the extended upper extremities,?Deep tendon reflexes are 2+?,?Plantars are flexor?.? Straight Leg Raising:?90 degrees.? Sensory Exam:?Normal light touch, temperature, pinprick, vibration and joint-position sensations?,?Rhomberg sign is absent.? Coordination:?no ataxia,?no titubation,?dkecdq-yb-epis, nnes-hljr-umlp test and rapid alternating movements were normal.? Gait Exam:?Within normal limits.? Cerebellar Signs:?Nttgdl-dp-cyog and oeqy-cr-mowm is normal,?no dysdiadochokinesia?.? Extrapyramidal System:?No tremor, rigidity with normal facial expressions,?No bradykinesia, no bradyphrenia. Normal arm swing and posture. No propulsion or retropulsion.? Speech:?Normal,?no dysphasia or dysarthria..? Mini Mental Status Exam: ? Level of Consciousness:?Alert.? Orientation:?Knows correct year, month, date, day and season,?Knows correct city, county and state. Knows correct location and floor.? Registration:?Able to register 3 objects.? Attention:?Serial 7's performed accurately.? Recall:?Able to recall 3 out of 3 objects.? Language:?Normal spontaneous speech, fluency, repetition,naming, comprehension, reading and writing.? Total Score:?30/30.? Assessment & Plan Assessment & Plan (1) Migraine: Code(s): G43.909 - Migraine, unspecified, not intractable, without status migrainosus Category: Medical (2) Spinal stenosis of lumbosacral region: Code(s): M48.07 - Spinal stenosis, lumbosacral region Category: Medical Plan continue current meds Medications: Changed From topiramate 100 mg orally 1 tab in the morning and 2 tabs at bedtime; 90 days 270 tabs 1RF To topiramate 100 mg orally 1 tab in the morning and 1 in afternoon and 2 tabs at bedtime; 360 tabs 3RF 90 days Coding Level of Care Code Est Pt Level 4 (08382) Diagnoses Migraine G43.909 Spinal stenosis of lumbosacral region M48.07
--- OUTSIDE RECORDS SUMMARY | 2025-07-04 20:34 | XMS_ITS | Encounter Summary ---
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; Anemia, unspecified; Chronic kidney disease, unspecified; Essential (primary) hypertension Social History Tobacco Use Types Packs/Day Years Used Date Smoking Tobacco: Former Cigarettes Smokeless Tobacco: Never Alcohol Use Standard Drinks/Week Comments No 0 (1 standard drink = 0.6 oz pur e alcohol) Comments Unknown Sex and Gender Information Value Date Recorded Sex Assigned at Not on file Legal Sex Female 1:07 AM EST Gender Identity Not on file Sexual Orientation Not on file documented as of this encounter Plan of Treatment Upcoming Encounters Date Type Department Care Team (Late Contact Info) Description 07/05/2025 2:45 PM EDT Clinical Support Coumadin [address] [phone] 07/18/2025 11:00 AM EST Office Visit Orthopedic Surgery - [place] [address] [place] [address], [place] [phone] Rebel Acharya, DPM [address] [phone] 09/10/2025 3:15 PM EST Office Visit Urogynecology [address] [phone] Stefanie Alvarado MD [address] [place] [address] [address] [place] [address] 09/18/2025 11:30 AM EST Office Visit Adult Medicine [place] [address] [phone] Mary Ann Hickman MD [address] [place] [address] documented as of this encounter Procedures Procedure Name Priority Date/Time Associated Diagnosis Comments MANUAL DIFFERENTIAL - SYSMEX WAM Routine 10/08/2024 8:21 AM EST Age-related osteoporosis without current pathological fracture 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 Anemia, unspecified Chronic kidney disease, unspecified Essential (primary) hypertension CBC WITH AUTO DIFFERENTIAL Routine 10/08/2024 8:21 AM EST Age-related osteoporosis without current pathological fracture MCC (current) use of 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 Anemia, unspecified Chronic kidney disease, unspecified Essential (primary) hypertension PROTHROMBIN TIME WITH INR Routine 10/08/2024 8:21 AM EST Age-related osteoporosis without current pathological fracture MCC (current) use of 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 Anemia, unspecified Chronic kidney disease, unspecified Essential (primary) hypertension CBC AND DIFFERENTIAL Routine 10/08/2024 8:21 AM EST Age-related osteoporosis without current pathological fracture 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 Anemia, unspecified Chronic kidney disease, unspecified Essential (primary) hypertension COMPREHENSIVE METABOLIC PANEL Routine 10/08/2024 8:21 AM EST Age-related osteoporosis without current pathological fracture 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 Anemia, unspecified Chronic kidney disease, unspecified Essential (primary) hypertension documented in this encounter Results * (ABNORMAL) Manual differential (10/08/2024 8:21 AM EST) Neutrophils % 74.0 % LAB HEMETOLOGY METHOD 5 10:54 AM [facility] Bands % 1.0 % LAB HEMETOLOGY METHOD 5 10:54 AM [facility] Lymphocytes % 16.0 % LAB HEMETOLOGY METHOD 5 10:54 AM [facility] Monocytes % 4.0 % LAB HEMETOLOGY METHOD 5 10:54 AM [facility] Eosinophils % 2.0 % LAB HEMETOLOGY METHOD 5 10:54 AM [facility] Basophils % 0.0 % LAB HEMETOLOGY METHOD 5 10:54 AM [facility] Metamyelocytes % 3.0(H) % LAB HEMETOLOGY METHOD 5 10:54 AM [facility] Myelocytes % 1.0(H) % LAB HEMETOLOGY METHOD 5 10:54 AM [facility] Neutrophils Absolute Manual 5.40 1.50 - 7.00 K/mcL LAB HEMETOLOGY METHOD 5 10:54 AM [facility] Bands Absolute Manual 0.07(H) 0.00 - 0.00 K/mcL LAB HEMETOLOGY METHOD 5 10:54 AM [facility] Lymphocytes Absolute 1.17 1.00 - 5.00 K/mcL LAB HEMETOLOGY METHOD 5 10:54 AM [facility] Monocytes Absolute Manual 0.29 0.20 - 1.00 K/mcL LAB HEMETOLOGY METHOD 5 10:54 AM EST [facility] Eosinophils Absolute Manual 0.15 0.00 - 0.50 K/[facility] LAB HEMETOLOGY METHOD 5 10:54 AM EST [facility] Basophils Absolute Manual 0.00 0.00 - 0.20 K/[facility] LAB HEMETOLOGY METHOD 5 10:54 AM EST [facility] Metamyelocytes Absolute Manual 0.22(H) 0.00 - 0.00 K/mcL LAB HEMETOLOGY METHOD 5 10:54 AM [facility] Myelocytes Absolute Manual 0.07(H) 0.00 - 0.00 K/[facility] LAB HEMETOLOGY METHOD 5 10:54 AM [facility] Rbc Morphology Consistent with indices Consistent with indices, Normal for LAB HEMETOLOGY METHOD 5 10:54 AM [facility] Platelet Morphology - WAM See Note(A) Normal LAB HEMETOLOGY METHOD 5 10:54 AM EST [facility] Comment:PLT: Normal Blood Venous blood specimen / Unknown Venipuncture / Unknown 10/08/2024 8:21 AM EST 10/08/2024 9:22 AM EST Stevie Zuñiga MD LAB BLOOD ORDERABLES Final Result [facility]) [facility] [address] [place] [address], * (ABNORMAL) CBC auto differential (10/08/2024 8:21 AM EST) [facility] WBC 7.3 4.8 - 10.8 K/mcL LAB HEMETOLOGY METHOD 10/08/2024 10:54 AM EST [facility] RBC 2.80(L) 3.80 - 4.80 M/mcL LAB HEMETOLOGY METHOD 10/08/2024 10:54 AM [facility] Hemoglobin 8.3(L) 11.5 - 16.0 g/dL LAB HEMETOLOGY METHOD 10/08/2024 10:54 AM [facility] Hematocrit 27.7(L) 35.0 - 47.0 % LAB HEMETOLOGY METHOD 10/08/2024 10:54 AM [facility] MCV 98.2(H) 79.0 - 98.0 FL LAB HEMETOLOGY METHOD 10/08/2024 10:54 AM [facility] MCH 29.4 27.0 - 32.0 pcg LAB HEMETOLOGY METHOD 10/08/2024 10:54 AM [facility] MCHC 30.0(L) 32.0 - 37.0 g/dL LAB HEMETOLOGY METHOD 10/08/2024 10:54 AM [facility] RDW 21.0(H) 11.0 - 15.0 % LAB HEMETOLOGY METHOD 10/08/2024 10:54 AM [facility] Platelets 222 130 - 400 K/mcL LAB HEMETOLOGY METHOD 10/08/2024 10:54 AM [facility] MPV 9.9 7.0 - 11.0 FL LAB HEMETOLOGY METHOD 10/08/2024 10:54 AM [facility] NRBC 0.3 <1.0 % LAB HEMETOLOGY METHOD 10/08/2024 10:54 AM [facility] NRBC Absolute 0.02 <0.10 K/mcL LAB HEMETOLOGY METHOD 10/08/2024 10:54 AM [facility] Blood Venous blood specimen / Unknown Venipuncture / Unknown 10/08/2024 8:21 AM EST 10/08/2024 9:22 AM EST us Stevie Zuñiga MD LAB BLOOD ORDERABLES Final Result [facility] [address] [place] [address], [place] [phone] * (ABNORMAL) Comprehensive metabolic panel (10/08/2024 8:21 AM EST) Sodium 140 133 - 145 mmol/L LAB CHEMISTRY METHOD 10/08/2024 10:57 AM EST [facility] Potassium 4.0 3.5 - 5.5 mmol/L LAB CHEMISTRY METHOD 10/08/2024 10:57 AM [facility] Chloride 110 96 - 110 mmol/L LAB CHEMISTRY METHOD 10/08/2024 10:57 AM [facility] CO2 27 21 - 32 mmol/L LAB CHEMISTRY METHOD 10/08/2024 10:57 AM [facility] Anion Gap 3 3 - 11 LAB CHEMISTRY METHOD 10/08/2024 10:57 AM [facility] Glucose 109(H) 70 - 100 mg/dL LAB CHEMISTRY METHOD 10/08/2024 10:57 AM [facility] BUN 13 5 - 25 mg/dL LAB CHEMISTRY METHOD 10/08/2024 10:57 AM [facility] Creatinine 0.90 0.50 - 1.10 mg/dL LAB CHEMISTRY METHOD 10/08/2024 10:57 AM [facility] eGFR 68 >=60 mL/min/1. 73m2 LAB CHEMISTRY METHOD 10/08/2024 10:57 AM [facility] Comment:Calculation based on the Chronic Kidney Disease Epidemiology Collaboration (CKD-EPI) equation refit without adjustment for race. BUN/Creatinine Ratio 14.4 LAB CHEMISTRY METHOD 10/08/2024 10:57 AM [facility] Calcium 8.6 8.5 - 10.5 mg/dL LAB CHEMISTRY METHOD 10/08/2024 10:57 AM [facility] AST (SGOT) 32 10 - 42 unit/L LAB CHEMISTRY METHOD 10/08/2024 10:57 AM [facility] ALT (SGPT) 20 10 - 60 unit/L LAB CHEMISTRY METHOD 10/08/2024 10:57 AM [facility] Alkaline Phosphatase 92 42 - 121 unit/L LAB CHEMISTRY METHOD 10/08/2024 10:57 AM [facility] Total Protein 5.4(L) 6.0 - 8.0 g/dL LAB CHEMISTRY METHOD 10/08/2024 10:57 AM [facility] Albumin 2.4(L) 3.2 - 5.0 g/dL LAB CHEMISTRY METHOD 10/08/2024 10:57 AM [facility] Total Bilirubin 0.5 0.0 - 1.4 mg/dL LAB CHEMISTRY METHOD 10/08/2024 10:57 AM [facility] Blood Venous blood specimen / Unknown Venipuncture / Unknown 10/08/2024 8:21 AM EST 10/08/2024 9:22 AM EST Stevie Zuñiga MD LAB BLOOD ORDERABLES Final Result [facility] [address] [place] [address], * Prothrombin time with INR (10/08/2024 8:21 AM EST) Protime 12.7 10.6 - 13.9 sec LAB COAGULATION METHOD 10/08/2024 10:30 AM [facility] INR 1.0 LAB COAGULATION METHOD 10/08/2024 10:30 AM [facility] Blood Venous blood specimen / Unknown Venipuncture / Unknown 10/08/2024 8:21 AM EST 10/08/2024 9:22 AM EST us Stevie Zuñiga MD LAB BLOOD ORDERABLES Final Result [facility] [address] [place] [address], documented in this encounter Visit Diagnoses Diagnosis Age-related osteoporosis without current pathological fracture MCC (current) use of 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 Long-term (current) use of 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 Anemia, unspecified Chronic kidney disease, unspecified Essential (primary) hypertension Unspecified essential hypertension documented in this encounter Additional Health Concerns Infection Onset Date Last Indicated Resolved Time Influenza 10/25/2024 10/25/2024 11/18/2024 7:04 PM EST Respiratory Rule-Out 10/26/2024 10/25/2024 025 10:36 PM EST documented as of this encounter Care Teams Ad Trafficker Relationship Specialty Start Date End Date Mary Ann Hickman MD [address] [place] [phone] PCP - General Internal Medicine 08/03/24 documented as of this encounter
--- OUTSIDE RECORDS SUMMARY | 2025-07-04 20:34 | XMS_ITS | Encounter Summary ---
Author Organization [facility] Address [address] [place] [address] Care Team Providers Care Doorshaker Name Role Phone Mary Ann Hickman MD Primary Care Provider [phone] Encounter Details Date Type Department Care Team (Late Contact Info) Description 10/21/2024 Lab Requisition [facility] - Main Lab 299 [facility] [place] [phone] Stevie Zuñiga MD [address] [place] [phone] Anemia, unspecified Social History Tobacco Use Types Packs/Day Years [...] 07/05/2025 2:45 PM EDT Clinical Support Coumadin [address] [phone] 07/18/2025 11:00 AM EST Office Visit Orthopedic Surgery - [place] [address] [phone] Rebel Acharya DPAlexis 175 [address] [place] [phone] 09/10/2025 3:15 PM EST Office Visit Urogynecology [address] [phone] Stefanie Alvarado MD [address] [place] [address] [address] [place] [address] 09/18/2025 11:30 AM EST Office Visit Adult Medicine [facility] - [address] [phone] Mary Ann Hickman MD [address] [place] [address] documented as of this encounter Procedures Procedure Name Priority Date/Time Associated Diagnosis Comments LT BLUE - NA CITRATE Routine 10/21/2024 7:44 AM EST Anemia, unspecified COMPLETE BLOOD COUNT Routine 10/21/2024 7:44 AM EST Anemia, unspecified documented in this encounter Results * Light blue tube (10/21/2024 7:44 AM EST) Pathologist [facility] Extra Tube Hold for add-ons. 10/21/2024 11:01 AM EST [facility] Comment:Auto resulted. Blood Venous blood specimen / Unknown Venipuncture / Unknown 10/21/2024 7:44 AM EST 10/21/2024 9:42 AM EST us Stevie Zuñiga MD LAB BLOOD ORDERABLES Final Result [facility] [address] [place] [address], * (ABNORMAL) Complete blood count (10/21/2024 7:44 AM EST) Pathologist [facility] WBC 4.6(L) 4.8 - 10.8 K/mcL LAB HEMETOLOGY METHOD 10/21/2024 10:22 AM [facility] RBC 2.50(L) 3.80 - 4.80 M/mcL LAB HEMETOLOGY METHOD 10/21/2024 10:22 AM [facility] Hemoglobin 7.5(L) 11.5 - 16.0 g/dL LAB HEMETOLOGY METHOD 10/21/2024 10:22 AM [facility] Hematocrit 25.5(L) 35.0 - 47.0 % LAB HEMETOLOGY METHOD 10/21/2024 10:22 AM [facility] MCV 101.2(H) 79.0 - 98.0 FL LAB HEMETOLOGY METHOD 10/21/2024 10:22 AM [facility] MCH 29.8 27.0 - 32.0 pcg LAB HEMETOLOGY METHOD 10/21/2024 10:22 AM [facility] MCHC 29.4(L) 32.0 - 37.0 g/dL LAB HEMETOLOGY METHOD 10/21/2024 10:22 AM [facility] RDW 20.9(H) 11.0 - 15.0 % LAB HEMETOLOGY METHOD 10/21/2024 10:22 AM [facility] Platelets 140 130 - 400 K/[facility] LAB HEMETOLOGY METHOD 10/21/2024 10:22 AM [facility] MPV 10.1 7.0 - 11.0 FL LAB HEMETOLOGY METHOD 10/21/2024 10:22 AM [facility] NRBC 0.0 <1.0 % LAB HEMETOLOGY METHOD 10/21/2024 10:22 AM [facility] NRBC Absolute 0.00 <0.10 K/mcL LAB HEMETOLOGY METHOD 10/21/2024 10:22 AM EST [facility] Blood Venous blood specimen / Unknown Venipuncture / Unknown 10/21/2024 7:44 AM EST 10/21/2024 9:25 AM EST us Stevie Zuñiga MD LAB BLOOD ORDERABLES Final Result [facility] [address] [place] [address], documented in this encounter Visit Diagnoses Diagnosis Anemia, unspecified documented in this encounter Additional Health Concerns Infection Onset Date Last Indicated Resolved Time Influenza 10/25/2024 10/25/2024 11/18/2024 7:04 PM EST Respiratory Rule-Out 10/26/2024 10/25/2024 025 10:36 PM EST documented as of this encounter Care Teams Doorshaker Relationship Specialty Start Date End Date Mary Ann Hickman MD [address] [place] [phone] PCP - General Internal Medicine 08/03/24 documented as of this encounter
--- OUTSIDE RECORDS SUMMARY | 2025-07-04 20:34 | XMS_ITS | Encounter Summary ---
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 Social History Tobacco Use Types Packs/Day Years [...] 07/05/2025 2:45 PM EDT Clinical Support Coumadin [address] [phone] 07/18/2025 11:00 AM EST Office Visit Orthopedic Surgery - [place] [address] [phone] Rebel Acharya, DPM 175 [facility] [address] [place] [address] 09/10/2025 3:15 PM EST Office Visit Urogynecology [address] [phone] Stefanie Alvarado MD 580 [facility] [address] [place] [address] 09/18/2025 11:30 AM EST Office Visit Adult Medicine [facility] - [address] [phone] Mary Ann Hickman MD [address] [place], [place] documented as of this encounter Procedures Procedure Name Priority Date/Time Associated Diagnosis Comments PROTHROMBIN TIME WITH INR Routine 10/30/2024 9:24 AM EST Chronic kidney disease, unspecified Essential (primary) hypertension Anemia, unspecified 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 COMPLETE BLOOD COUNT Routine 10/30/2024 9:24 AM EST Chronic kidney disease, unspecified Essential (primary) hypertension Anemia, unspecified 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 BASIC METABOLIC PANEL Routine 10/30/2024 9:24 AM EST Chronic kidney disease, unspecified Essential (primary) hypertension Anemia, unspecified long-term (current) use of 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 documented in this encounter Results * (ABNORMAL) Prothrombin time with INR (10/30/2024 9:24 AM EST) Protime 29.2(H) 10.6 - 13.9 sec LAB COAGULATION METHOD 10/30/2024 11:31 AM EST [facility] INR 2.4 LAB COAGULATION METHOD 10/30/2024 11:31 AM [facility] Blood Venous blood specimen / Unknown 10/30/2024 9:24 AM EST 10/30/2024 11:05 AM EST Stevie Zuñiga MD LAB BLOOD ORDERABLES Final Result [facility] [address] [place] [address], * (ABNORMAL) Basic metabolic panel (10/30/2024 9:24 AM EST) Sodium 140 133 - 145 mmol/L LAB CHEMISTRY METHOD 10/30/2024 11:52 AM [facility] Potassium 3.6 3.5 - 5.5 mmol/L LAB CHEMISTRY METHOD 10/30/2024 11:52 AM [facility] Chloride 108 96 - 110 mmol/L LAB CHEMISTRY METHOD 10/30/2024 11:52 AM [facility] CO2 24 21 - 32 mmol/L LAB CHEMISTRY METHOD 10/30/2024 11:52 AM [facility] Anion Gap 8 3 - 11 LAB CHEMISTRY METHOD 10/30/2024 11:52 AM [facility] Glucose 120(H) 70 - 100 mg/dL LAB CHEMISTRY METHOD 10/30/2024 11:52 AM [facility] BUN 16 5 - 25 mg/dL LAB CHEMISTRY METHOD 10/30/2024 11:52 AM [facility] Creatinine 0.87 0.50 - 1.10 mg/dL LAB CHEMISTRY METHOD 10/30/2024 11:52 AM [facility] eGFR 71 >=60 mL/min/1. 73m2 LAB CHEMISTRY METHOD 10/30/2024 11:52 AM [facility] Comment:Calculation based on the Chronic Kidney Disease Epidemiology Collaboration (CKD-EPI) equation refit without adjustment for race. BUN/Creatinine Ratio 18.4 LAB CHEMISTRY METHOD 10/30/2024 11:52 AM [facility] Calcium 8.8 8.5 - 10.5 mg/dL LAB CHEMISTRY METHOD 10/30/2024 11:52 AM [facility] Blood Venous blood specimen / Unknown Venipuncture / Unknown 10/30/2024 9:24 AM EST 10/30/2024 11:05 AM EST us Stevie Zuñiga MD LAB BLOOD ORDERABLES Final Result [facility] [address] [place] [address], * (ABNORMAL) Complete blood count (10/30/2024 9:24 AM EST) WBC 11.4(H) 4.8 - 10.8 K/mcL LAB HEMETOLOGY METHOD 10/30/2024 11:46 AM [facility] RBC 2.80(L) 3.80 - 4.80 M/mcL LAB HEMETOLOGY METHOD 10/30/2024 11:46 AM [facility] Hemoglobin 8.4(L) 11.5 - 16.0 g/dL LAB HEMETOLOGY METHOD 10/30/2024 11:46 AM [facility] Hematocrit 27.8(L) 35.0 - 47.0 % LAB HEMETOLOGY METHOD 10/30/2024 11:46 AM [facility] MCV 99.3(H) 79.0 - 98.0 FL LAB HEMETOLOGY METHOD 10/30/2024 11:46 AM [facility] MCH 30.0 27.0 - 32.0 pcg LAB HEMETOLOGY METHOD 10/30/2024 11:46 AM [facility] MCHC 30.2(L) 32.0 - 37.0 g/dL LAB HEMETOLOGY METHOD 10/30/2024 11:46 AM EST [facility] RDW 20.2(H) 11.0 - 15.0 % LAB HEMETOLOGY METHOD 10/30/2024 11:46 AM EST [facility] Platelets 378 130 - 400 K/mcL LAB HEMETOLOGY METHOD 10/30/2024 11:46 AM [facility] MPV 9.2 7.0 - 11.0 FL LAB HEMETOLOGY METHOD 10/30/2024 11:46 AM [facility] NRBC 0.0 <1.0 % LAB HEMETOLOGY METHOD 10/30/2024 11:46 AM [facility] NRBC Absolute 0.00 <0.10 K/mcL LAB HEMETOLOGY METHOD 10/30/2024 11:46 AM [facility] Blood Venous blood specimen / Unknown Venipuncture / Unknown 10/30/2024 9:24 AM EST 10/30/2024 11:05 AM EST Stevie Zuñiga MD LAB BLOOD ORDERABLES Final Result [facility] [address] [place] [address], documented in this encounter Visit Diagnoses Diagnosis Chronic kidney disease, unspecified Essential (primary) hypertension Unspecified essential hypertension Anemia, unspecified long-term (current) use of 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 Long-term (current) use of 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 documented in this encounter Additional Health Concerns Infection Onset Date Last Indicated Resolved Time Influenza 10/25/2024 10/25/2024 11/18/2024 7:04 PM EST documented as of this encounter Care Teams Body Trimmer Upholsterer Relationship Specialty Start Date End Date Mary Ann Hickman MD [address] [place] [phone] PCP - General Internal Medicine 08/03/24 documented as of this encounter
--- OUTSIDE RECORDS SUMMARY | 2025-07-04 20:34 | XMS_ITS | Encounter Summary ---
Author Organization [facility] Address [address] [place] [address] Care Team Providers Care Metal Burnisher Name Role Phone Mary Ann Hickman MD Primary Care Provider [phone] Encounter Details Date Type Department Care Team (Late Contact Info) Description 10/26/2024 Lab Requisition [facility] - Main Lab 299 [facility] [place] [phone] Stevie Zuñiga MD [address] [place] [phone] Unspecified atrial fibrillation (CMS/HCC V24, CMS/HCC V28) Social History Tobacco Use Types Packs/Day Years [...] 2:45 PM EDT Clinical Support Coumadin Clinic [address] [phone] 07/18/2025 11:00 AM EST Office Visit Orthopedic Surgery - [place] [address] [phone] Rebel Acharya, DPM 175 [facility] [address] [place] [phone] 09/10/2025 3:15 PM EST Office Visit Urogynecology [address] [phone] Stefanie Alvarado MD [address] [place] [address] [address] [place] [address] 09/18/2025 11:30 AM EST Office Visit Adult Medicine [facility] - [address] [phone] Mary Ann Hickman MD [address] [place], [place] documented as of this encounter Procedures Procedure Name Priority Date/Time Associated Diagnosis Comments PROTHROMBIN TIME WITH INR Routine 10/26/2024 5:37 AM EST Unspecified atrial fibrillation (CMS/HCC) documented in this encounter Results * (ABNORMAL) Prothrombin time with INR (10/26/2024 5:37 AM EST) Protime 37.0(H) 10.6 - 13.9 sec LAB COAGULATION METHOD 10/26/2024 1:34 PM EST [facility] INR 3.0 LAB COAGULATION METHOD 10/26/2024 1:34 PM EST [facility] Blood Venous blood specimen / Unknown Venipuncture / Unknown 10/26/2024 5:37 AM EST 10/26/2024 11:41 AM EST us Stevie Zuñiga MD LAB BLOOD ORDERABLES Final Result [facility] [address] [place] [address], documented in this encounter Visit Diagnoses Diagnosis Unspecified atrial fibrillation ([facility] V24, [facility] V28) documented in this encounter Additional Health Concerns Infection Onset Date Last Indicated Resolved Time Influenza 10/25/2024 10/25/2024 11/18/2024 7:04 PM EST Respiratory Rule-Out 10/26/2024 10/25/2024 025 10:36 PM EST documented as of this encounter Care Teams Metal Burnisher Relationship Specialty Start Date End Date Mary Ann Hickman MD [address] [place] [phone] PCP - General Internal Medicine 08/03/24 documented as of this encounter
--- OUTSIDE RECORDS SUMMARY | 2025-07-04 20:34 | XMS_ITS | Encounter Summary ---
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 (nsaid); Chronic kidney disease, unspecified Social History Tobacco Use Types Packs/Day [...] 07/05/2025 2:45 PM EDT Clinical Support Coumadin [address] [phone] 07/18/2025 11:00 AM EST Office Visit Orthopedic Surgery - [place] [address] [phone] Rebel Acharya, DPM 175 [facility] 250 [place] [phone] 09/10/2025 3:15 PM EST Office Visit Urogynecology [address] [phone] Stefanie Alvarado MD 580 [facility] [address] [place] [address] 09/18/2025 11:30 AM EST Office Visit Adult [facility] - [address] [phone] Mary Ann Hickman MD 444 [place], [place] documented as of this encounter Procedures Procedure Name Priority Date/Time Associated Diagnosis Comments PROTHROMBIN TIME WITH INR Routine 10/19/2024 6:17 AM EST 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 (nsaid) Chronic kidney disease, unspecified documented in this encounter Results * (ABNORMAL) Prothrombin time with INR (10/19/2024 6:17 AM EST) Protime 21.6(H) 10.6 - 13.9 sec LAB COAGULATION METHOD 10/19/2024 10:47 AM EST [facility] INR 1.7 LAB COAGULATION METHOD 10/19/2024 10:47 AM EST [facility] Blood Venous blood specimen / Unknown Venipuncture / Unknown 10/19/2024 6:17 AM EST 10/19/2024 9:41 AM EST us Stevie Zuñiga MD LAB BLOOD ORDERABLES Final Result [facility] 299 [place] [address], documented in this encounter Visit Diagnoses Diagnosis 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
--- OUTSIDE RECORDS SUMMARY | 2025-07-04 20:34 | XMS_ITS | Encounter Summary ---
Author Organization [facility] Address [address] [place] [address] Care Team Providers Care Typewriter Tester Name Role Phone Mary Ann Hickman MD Primary Care Provider [phone] Encounter Details Date Type Department Care Team (Late Contact Info) Description 10/17/2024 Lab Requisition [facility] - Main Lab 299 [facility] [place] [phone] Stevie Zuñiga MD [address] [place] [address] Unspecified atrial fibrillation (CMS/HCC V24, CMS/HCC V28) [...] 2:45 PM EDT Clinical Support Coumadin Clinic [address] [phone] 07/18/2025 11:00 AM EST Office Visit Orthopedic Surgery - [place] [address] [phone] Rebel Acharya, DPM 175 [facility] [address] [place] [phone] 09/10/2025 3:15 PM EST Office Visit Urogynecology [address] [phone] Stefanie Alvarado MD [address] [place] [address] [address] [place] [address] 09/18/2025 11:30 AM EST Office Visit Adult [facility] - [address] [phone] Mary Ann Hickman MD 4 [place], [place] documented as of this encounter Procedures Procedure Name Priority Date/Time Associated Diagnosis Comments PROTHROMBIN TIME WITH INR Routine 10/17/2024 7:01 AM EST Unspecified atrial fibrillation (CMS/HCC) documented in this encounter Results * (ABNORMAL) Prothrombin time with INR (10/17/2024 7:01 AM EST) Protime 30.4(H) 10.6 - 13.9 sec LAB COAGULATION METHOD 10/17/2024 10:58 AM EST [facility] INR 2.5 LAB COAGULATION METHOD 10/17/2024 10:58 AM EST [facility] Blood Venous blood specimen / Unknown Venipuncture / Unknown 10/17/2024 7:01 AM EST 10/17/2024 9:42 AM EST us Stevie Zuñgia MD LAB BLOOD ORDERABLES Final Result [facility] [address] [place] [address], documented in this encounter Visit Diagnoses Diagnosis Unspecified atrial fibrillation ([facility] V24, [facility] V28) documented in this encounter Additional Health Concerns Infection Onset Date Last Indicated Resolved Time Influenza 10/25/2024 10/25/2024 11/18/2024 7:04 PM EST Respiratory Rule-Out 10/26/2024 10/25/2024 025 10:36 PM EST documented as of this encounter Care Teams Typewriter Tester Relationship Specialty Start Date End Date Mary Ann Hickman MD [address] [place] [phone] PCP - General Internal Medicine 08/03/24 documented as of this encounter
--- OUTSIDE RECORDS SUMMARY | 2025-07-04 20:34 | XMS_ITS | Encounter Summary ---
Author Organization [facility] Address [address] [place] [address] Care Team Providers Care Chimney Builder Helper Name Role Phone Mary Ann Hickman MD Primary Care Provider [phone] Encounter Details Date Type Department Care Team (Late Contact Info) Description 10/15/2024 Lab Requisition [facility] - Main Lab 299 [facility] [place] [phone] Stevie Zuñiga MD [address] [place] [address] Unspecified fracture of right femur, subsequent encounter for closed fracture with routine healing Social History Tobacco Use Types Packs/Day Years [...] 2:45 PM EDT Clinical Support Coumadin Clinic [address] [phone] 07/18/2025 11:00 AM EST Office Visit Orthopedic Surgery - [place] [address] [phone] Rebel Acharya, DPM 175 [facility] [address] [place] [phone] 09/10/2025 3:15 PM EST Office Visit Urogynecology [address] [phone] Stefanie Alvarado MD [address] [place] [address] [address] [place] [address] 09/18/2025 11:30 AM EST Office Visit Adult [facility] - [address] [phone] Mary Ann Hickman MD [address] [place] [address] documented as of this encounter Procedures Procedure Name Priority Date/Time Associated Diagnosis Comments COMPLETE BLOOD COUNT Routine 10/15/2024 3:54 PM EST Unspecified fracture of right femur, subsequent encounter for closed fracture with routine healing documented in this encounter Results * (ABNORMAL) Complete blood count (10/15/2024 3:54 PM EST) [facility] Signature WBC 7.0 4.8 - 10.8 [facility] LAB HEMETOLOGY METHOD 10/15/2024 4:23 PM [facility] RBC 2.40(L) 3.80 - 4.80 M/[facility] LAB HEMETOLOGY METHOD 10/15/2024 4:23 PM [facility] Hemoglobin 7.2(L) 11.5 - 16.0 g/dL LAB HEMETOLOGY METHOD 10/15/2024 4:23 PM [facility] Hematocrit 23.8(L) 35.0 - 47.0 % LAB HEMETOLOGY METHOD 10/15/2024 4:23 PM [facility] MCV 99.6(H) 79.0 - 98.0 FL LAB HEMETOLOGY METHOD 10/15/2024 4:23 PM EST [facility] MCH 30.1 27.0 - 32.0 pcg LAB HEMETOLOGY METHOD 10/15/2024 4:23 PM [facility] MCHC 30.3(L) 32.0 - 37.0 g/dL LAB HEMETOLOGY METHOD 10/15/2024 4:23 PM EST [facility] RDW 21.3(H) 11.0 - 15.0 % LAB HEMETOLOGY METHOD 10/15/2024 4:23 PM EST [facility] Platelets 243 130 - 400 K/mcL LAB HEMETOLOGY METHOD 10/15/2024 4:23 PM EST [facility] MPV 9.5 7.0 - 11.0 FL LAB HEMETOLOGY METHOD 10/15/2024 4:23 PM EST [facility] NRBC 0.0 <1.0 % LAB HEMETOLOGY METHOD 10/15/2024 4:23 PM EST [facility] NRBC Absolute 0.00 <0.10 K/mcL LAB HEMETOLOGY METHOD 10/15/2024 4:23 PM [facility] Blood Venous blood specimen / Unknown Venipuncture / Unknown 10/15/2024 3:54 PM EST 10/15/2024 4:18 PM EST us Stevie Zuñiga MD LAB BLOOD ORDERABLES Final Result [facility] [address] [place] [address], documented in this encounter Visit Diagnoses Diagnosis Unspecified fracture of right femur, subsequent encounter for closed fracture with routine healing documented in this encounter Additional Health Concerns Infection Onset Date Last Indicated Resolved Time Influenza 10/25/2024 10/25/2024 11/18/2024 7:04 PM EST Respiratory Rule-Out 10/26/2024 10/25/2024 025 10:36 PM EST documented as of this encounter Care Teams Chimney Builder Helper Relationship Specialty Start Date End Date Mary Ann Hickman MD [address] [place] [phone] PCP - General Internal Medicine 08/03/24 documented as of this encounter
--- OUTSIDE RECORDS SUMMARY | 2025-07-04 20:34 | XMS_ITS | Encounter Summary ---
Author Organization [facility] Address [address] [place] [address] Care Team Providers Care Consumer Loan Manager Name Role Phone Mary Ann Hickman MD Primary Care Provider [phone] Encounter Details Date Type Department Care Team (Late Contact Info) Description 10/20/[address] [facility] - Main Lab 299 [facility] [place] [phone] Stevie Zuñiga MD [address] [place] [address] Acute embolism and thrombosis of unspecified deep veins of right lower extremity (CMS/HCC V24, CMS/HCC V28); Presence of prosthetic heart valve Social History Tobacco Use Types Packs/Day Years [...] 07/05/2025 2:45 PM EDT Clinical Support Coumadin [address] [phone] 07/18/2025 11:00 AM EST Office Visit Orthopedic Surgery - [place] [address] [place] [address] [place] [phone] Rebel Acharya, DPM 175 [facility] 250 [place] [phone] 09/10/2025 3:15 PM EST Office Visit Urogynecology [address] [phone] Stefanie Alvarado MD [address] [place] [address] [address] [place] [address] 09/18/2025 11:30 AM EST Office Visit Adult [facility] - [address] [phone] Mary Ann Hickman MD [address] [place] [address] documented as of this encounter Procedures Procedure Name Priority Date/Time Associated Diagnosis Comments PROTHROMBIN TIME WITH INR Routine 10/20/2024 5:40 AM EST Acute embolism and thrombosis of unspecified deep veins of right lower extremity (CMS/HCC) Presence of prosthetic heart valve documented in this encounter Results * (ABNORMAL) Prothrombin time with INR (10/20/2024 5:40 AM EST) Protime 24.3(H) 10.6 - 13.9 sec LAB COAGULATION METHOD 10/20/2024 11:08 AM EST [facility] INR 2.0 LAB COAGULATION METHOD 10/20/2024 11:08 AM EST [facility] Blood Venous blood specimen / Unknown Venipuncture / Unknown 10/20/2024 5:40 AM EST 10/20/2024 10:09 AM EST us Stevie Zuñiga MD LAB BLOOD ORDERABLES Final Result [facility] 299 [place] [address], documented in this encounter Visit Diagnoses Diagnosis Acute embolism and thrombosis of unspecified deep veins of right lower extremity (CMS/[facility] V24, CMS/[facility] V28) Presence of prosthetic heart valve documented in this encounter Additional Health Concerns Infection Onset Date Last Indicated Resolved Time Influenza 10/25/2024 10/25/2024 11/18/2024 7:04 PM EST Respiratory Rule-Out 10/26/2024 10/25/2024 025 10:36 PM EST documented as of this encounter Care Teams Consumer Loan Manager Relationship Specialty Start Date End Date Mary Ann Hickman MD [address] [place] [phone] PCP - General Internal Medicine 08/03/24 documented as of this encounter
--- OUTSIDE RECORDS SUMMARY | 2025-07-04 20:34 | XMS_ITS | Encounter Summary ---
Author Organization [facility] Address [address] [place] [address] Care Team Providers Care Decorating Equipment Setter Name Role Phone Mary Ann Hickman MD Primary Care Provider [phone] Encounter Details Date Type Department Care Team (Late Contact Info) Description 10/22/2024 Lab Requisition [facility] - Main Lab 299 [facility] [place] [address] Stevie Zuñiga MD [address] [place] [address] Chronic kidney disease, unspecified; Essential (primary) hypertension; Anemia, unspecified; long term (current) use of 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 Social History Tobacco [...] 07/05/2025 2:45 PM EDT Clinical Support Coumadin [address] [phone] 07/18/2025 11:00 AM EST Office Visit Orthopedic Surgery - [place] [address] [phone] Rebel Acharya, DPM 175 [facility] [address] [place] [address] 09/10/2025 3:15 PM EST Office Visit Urogynecology [address] [phone] Stefanie Alvarado MD 580 [facility] [address] [place] [address] 09/18/2025 11:30 AM EST Office Visit Adult [facility] - [address] [phone] Mary Ann Hickman MD [address] [place], [place] documented as of this encounter Procedures Procedure Name Priority Date/Time Associated Diagnosis Comments PROTHROMBIN TIME WITH INR Routine 10/23/2024 9:00 AM EST Chronic kidney disease, unspecified Essential (primary) hypertension Anemia, unspecified long term (current) use of 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 COMPLETE BLOOD COUNT Routine 10/23/2024 9:00 AM EST Chronic kidney disease, unspecified Essential (primary) hypertension Anemia, unspecified long term (current) use of 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 BASIC METABOLIC PANEL Routine 10/23/2024 9:00 AM EST Chronic kidney disease, unspecified Essential (primary) hypertension Anemia, unspecified senior care (current) use of 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 documented in this encounter Results * (ABNORMAL) Complete blood count (10/23/2024 9:00 AM EST) [facility] WBC 8.9 4.8 - 10.8 K/mcL LAB HEMETOLOGY METHOD 10/23/2024 1:34 PM EST [facility] RBC 2.60(L) 3.80 - 4.80 M/mcL LAB HEMETOLOGY METHOD 10/23/2024 1:34 PM [facility] Hemoglobin 7.7(L) 11.5 - 16.0 g/dL LAB HEMETOLOGY METHOD 10/23/2024 1:34 PM [facility] Hematocrit 25.4(L) 35.0 - 47.0 % LAB HEMETOLOGY METHOD 10/23/2024 1:34 PM [facility] MCV 97.7 79.0 - 98.0 FL LAB HEMETOLOGY METHOD 10/23/2024 1:34 PM [facility] MCH 29.6 27.0 - 32.0 pcg LAB HEMETOLOGY METHOD 10/23/2024 1:34 PM [facility] MCHC 30.3(L) 32.0 - 37.0 g/dL LAB HEMETOLOGY METHOD 10/23/2024 1:34 PM [facility] RDW 20.1(H) 11.0 - 15.0 % LAB HEMETOLOGY METHOD 10/23/2024 1:34 PM [facility] Platelets 146 130 - 400 K/mcL LAB HEMETOLOGY METHOD 10/23/2024 1:34 PM [facility] MPV 10.9 7.0 - 11.0 FL LAB HEMETOLOGY METHOD 10/23/2024 1:34 PM [facility] NRBC 0.0 <1.0 % LAB HEMETOLOGY METHOD 10/23/2024 1:34 PM [facility] NRBC Absolute 0.00 <0.10 K/mcL LAB HEMETOLOGY METHOD 10/23/2024 1:34 PM [facility] Blood Venous blood specimen / Unknown Venipuncture / Unknown 10/23/2024 9:00 AM EST 10/23/2024 11:13 AM EST us Stevie Zuñiga MD LAB BLOOD ORDERABLES Final Result [facility] [address] [place] [address], * (ABNORMAL) Prothrombin time with INR (10/23/2024 9:00 AM EST) [facility] Protime 66.3(H) 10.6 - 13.9 sec LAB COAGULATION METHOD 10/23/2024 12:38 PM [facility] INR 5.4(HH) LAB COAGULATION METHOD 10/23/2024 12:38 PM [facility] Blood Venous blood specimen / Unknown Venipuncture / Unknown 10/23/2024 9:00 AM EST 10/23/2024 11:13 AM EST Stevie Zuñiga MD LAB BLOOD ORDERABLES Final Result Performing Organization Address [facility]/ZIP Co de Phone Number [facility] [address] [place] [address], [place] [phone] * (ABNORMAL) Basic metabolic panel (10/23/2024 9:00 AM EST) [facility] Sodium 131(L) 133 - 145 mmol/L LAB CHEMISTRY METHOD 10/23/2024 1:31 PM [facility] Potassium 3.7 3.5 - 5.5 mmol/L LAB CHEMISTRY METHOD 10/23/2024 1:31 PM [facility] Chloride 100 96 - 110 mmol/L LAB CHEMISTRY METHOD 10/23/2024 1:31 PM [facility] CO2 22 21 - 32 mmol/L LAB CHEMISTRY METHOD 10/23/2024 1:31 PM [facility] Anion Gap 9 3 - 11 LAB CHEMISTRY METHOD 10/23/2024 1:31 PM [facility] Glucose 139(H) 70 - 100 mg/dL LAB CHEMISTRY METHOD 10/23/2024 1:31 PM EST [facility] BUN 23 5 - 25 mg/dL LAB CHEMISTRY METHOD 10/23/2024 1:31 PM EST [facility] Creatinine 0.96 0.50 - 1.10 mg/dL LAB CHEMISTRY METHOD 10/23/2024 1:31 PM EST [facility] LAB eGFR 63 >=60 mL/min/1. 73m2 LAB CHEMISTRY METHOD 10/23/2024 1:31 PM EST [facility] Comment:Calculation based on the Chronic Kidney Disease Epidemiology Collaboration (CKD-EPI) equation refit without adjustment for race. BUN/Creatinine Ratio 24.0 LAB CHEMISTRY METHOD 10/23/2024 1:31 PM EST [facility] Calcium 8.1(L) 8.5 - 10.5 mg/dL LAB CHEMISTRY METHOD 10/23/2024 1:31 PM [facility] Blood Venous blood specimen / Unknown Venipuncture / Unknown 10/23/2024 9:00 AM EST 10/23/2024 11:13 AM EST us Stevie Zuñiga MD LAB BLOOD ORDERABLES Final Result [facility] [address] [place] [address], documented in this encounter Visit Diagnoses Diagnosis Chronic kidney disease, unspecified Essential (primary) hypertension Unspecified essential hypertension Anemia, unspecified long term (current) use of 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 Long-term (current) use of 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 documented in this encounter Additional Health Concerns Infection Onset Date Last Indicated Resolved Time Influenza 10/25/2024 10/25/2024 11/18/2024 7:04 PM EST Respiratory Rule-Out 10/26/2024 10/25/2024 025 10:36 PM EST documented as of this encounter Care Teams Decorating Equipment Setter Relationship Specialty Start Date End Date Mary Ann Hickman MD [address] [place] [phone] PCP - General Internal Medicine 08/03/24 documented as of this encounter
--- OUTSIDE RECORDS SUMMARY | 2025-07-04 20:34 | XMS_ITS | Clinical Summary ---
Author Organization [facility] [address] [place] [address] [place] [phone] Phone Care Team Providers Care Cdl Instructor Name Role Phone Mary Ann Hickman MD Primary Care Provider [phone] Allergies Active Allergy Reactions Criticality Noted Date Comments Alendronate High 08/30/2018 Other reaction(s): Myalgia and Joint Pain Alendronate Sodium Pain High 08/30/2018 Amoxicillin-Pot Clavulanate 11/18/2005 Bacitracin-Polymyxin B Flushing,Itching 018 Bee Venom Protein (Honey Bee) Anaphylaxis High 11/18/2005 Was on allergen immunotherapy during childhood for this. Has epinephrine autoinjector Cephalexin 11/18/2005 Clindamycin Hcl 10/06/2010 Throat closing Codeine Itching 11/18/2005 Fish Containing Products Anaphylaxis High 08/16/2013 Fluconazole 11/18/2005 Fluticasone Furoate-Vilanterol Other 02/22/2024 Oral blisters Hydrocortisone Hives,Rash 10/16/2019 Hydromorphone Hcl Hallucinations 11/03/2017 Penicillins Rash 10/29/2010 Prednisone Swelling 05/27/2022 Ozeroqiqlwehehh-Nv-Snoz fenesin 07/04/2010 Shellfish Containing Products 11/18/2005 Shellfish Derived 11/18/2005 Sulfacetamide Sodium 11/18/2005 Medications ASCORBIC ACID, VITAMIN C, ORAL Take by mouth. Activ e vitamin B complex (B COMPLEX ORAL) Take by mouth. A ctive CALCIUM CITRATE-VITAM IN D3 ORAL Take by mouth 1 (one) time each day. Active cetirizine (ZyrTEC) 10 mg tablet Take 1 tablet (10 mg total) by mouth. 04/09/20 20 Active fluticasone propionate (FLONASE) 50 mcg/actuation nasal spray Administer 2 sprays into affected nostril(s). 01/23/20 21 Active levothyroxine (SYNTHROID, LEVOTHROID) 88 mcg tablet Take 1 tablet (88 mcg total) by mouth 1 (one) time each day. 01/04/20 24 Active topiramate (TOPAMAX) 100 mg tablet Take 1 tablet (100 mg total) by mouth. 100 mg in AM and 200 mg in PM for headache prophylaxis 03/15/20 20 Active magnesium 250 mg tablet Take 1 tablet by mouth 1 (one) time each day. Active multivitamin (MULTIPLE VITAMINS ORAL) Take by mouth. Activ e acetaminophen (TYLENOL) 500 mg tablet Take 1 tablet (500 mg total) by mouth. Active albuterol HFA (PROAIR HFA ; PROVENTIL HFA ; VENTOLIN HFA) 90 mcg/actuation inhaler Inhale 2 puffs by mouth. 01/17/20 24 Active cyanocobalami n (VITAMIN B-12) 1,000 mcg tablet Take 1 tablet (1,000 mcg total) by mouth. Active Prolia 60 mg/mL syringe syringe Inject 1 mL (60 mg total) under the skin. 10/31/19 22 Active diphenhydrAMI NE (BENADRYL) 25 mg tablet Take 1 tablet (25 mg total) by mouth 1 (one) time each day if needed. Active ferrous sulfate 325 mg (65 mg iron) EC tablet Take 1 tablet (325 mg total) by mouth 1 (one) time each day with breakfast. Do not crush, chew, or split. 90 each 1 03/01/20 25 Active nitroglycerin (NITROSTAT) 0.[address] 1 tablet (0.4 mg total) under the tongue every 5 (five) minutes if needed for chest pain. 90 tablet 03/01/20 25 026 Active buPROPion XL (WELLBUTRIN XL) 300 mg 24 hr tablet Take 1 tablet (300 mg total) by mouth 1 (one) time each day in the morning. 90 tablet 1 04/03/20 25 Active citalopram (CeleXA) 40 mg tablet Take 1 tablet (40 mg total) by mouth 1 (one) time each day. 90 tablet 1 04/05/20 25 Active EPINEPHrine (EPIPEN) 0.3 mg/0.3 mL injection Inject 0.3 mL (0.3 mg total) into the thigh 1 (one) time for 1 dose. 1 each 04/05/20 25 Active gabapentin (NEURONTIN) 600 mg tablet Take 1 tablet (600 mg total) by mouth 3 (three) times a day. 270 tablet 04/17/20 25 Active famotidine (PEPCID) 20 mg tablet Take 1 tablet (20 mg total) by mouth 2 (two) times a day. 180 tablet 04/24/20 25 Active atorvastatin (LIPITOR) 20 mg tablet Take 1 tablet (20 mg total) by mouth 1 (one) time each day. 90 tablet 1 05/11/20 25 Active warfarin (COUMADIN) 5 mg tablet TAKE 2 TO 3 TABLETS BY MOUTH EVERY DAY. MAY CAUSE HEAVY BLEEDING.TK AT THE SAME TIME EVERY_DAY. DO NOT CHANGE DIETARY HABITS 270 tablet 1 06/04/20 25 Active clotrimazole (LOTRIMIN) 1 % cream Apply topically 2 (two) times a day. 30 g 3 06/06/20 25 025 Active mirabegron (MYRBETRIQ) 25 mg 24 hr tablet Take 1 tablet (25 mg total) by mouth 1 (one) time each day. 30 each 3 06/07/20 25 026 Active dicyclomine (BENTYL) 10 mg capsule TAKE 2 CAPSULES BY MOUTH FOUR TIMES DAILY BEFORE MEALS AND NIGHTLY 07/06/20 23 025 Discontinued(Th erapy completed) enoxaparin (LOVENOX) 100 mg/mL syringe Inject 0.9 mL (90 mg total) under the skin every 12 (twelve) hours. Please fill 10 syringes with one refill 10 each 1 05/03/20 25 025 Discontinued Active Problems Problem Noted Date Diagnosed Date Comminuted fracture of humer us, left, with routine healing, subsequent encounter 11/03/2024 Mild intermittent asthma without complication Encounter for therapeutic drug level monitoring 11/03/2024 Presence of prosthetic heart valve 11/03/2024 Bariatric surgery status 11/03/2024 Hx of falling 11/03/2024 Chronic bilateral low back pain with bilateral s ciatica 09/15/2024 Assessment & Plan (09/15/2024 3:39 PM EST): Ms. Cheng describes pain in her low back and right greater than left leg since a couple of falls. She has a history of right hip replacement. She was tender with palpation at the thoracolumbar junction and then also around L4. She was tender with palpation around the right greater trochanter. She had a positive right hip mechanical test. X-rays and the CT of the lumbar spine reveal multilevel compression fractures of unknown age. Right hip x-rays were unremarkable other than intact hardware. She had a DEXA scan revealing osteoporosis. She is scheduled to have an MRI of the lumbar spine later this month. We talked about the possibility of a kyphoplasty depending on the acuity of her compression fractures. I told her we would know more after her MRI and she will call me after it has been done. It will be at [facility] so she will try to get pictures to us or we can send have them sent to our PACS. I strongly encouraged her to follow-up with [facility] where she has had her hip treated in the past. H/O mechanical aortic valve replacement 08/03/20 24 Hx-TIA (transient ischemic attack) 08/03/2024 snf (current) use of 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 2023 Lumbar radiculopathy 09/22/2022 Anxiety and depression 09/22/2022 Migraine without status migrainosus, not intract able 09/22/2022 Osteoarthritis 09/22/2022 CAD (coronary artery disease) 12/31/2021 Fatigue 12/31/2021 CKD (chronic kidney disease) stage 3, GFR 30-59 ml/min (CMS/HCC V24, CMS/HCC V28) 12/06/2020 THOR (generalized anxiety disorder) 12/06/2020 Nonrheumatic aortic valve stenosis 12/06/2020 Overview (06/28/2024): 09/11/08: mechanical AVR, per Dr. Dailey Snoring 12/06/2020 Overview (06/28/2024): Consider sleep study - per Dr. Kline TIA (transient ischemic attack) 12/06/2020 Overview (06/28/2024): Per Dr. Kline Type II diabetes mellitus wi th peripheral artery disease ([facility] V24, [facility] V28) 12/06/2020 Vitamin D insufficiency 12/06/2020 Hyperparathyroidism ([facility] V24) 07/05/2020 Lumbar spinal stenosis 01/03/2020 Meningioma ([facility] V24, [facility] V28) 04/28/2017 Anemia due to blood loss 02/04/2017 Hypothyroidism 08/20/2016 Microscopic hematuria 07/24/2016 Type II diabetes mellitus wi th renal manifestations ([facility] V24, [facility] V28) 02/03/2016 Stenosis of left carotid artery 03/12/2014 Overview (06/28/2024): 50-60% left ICA; s/p endarterectomy; on Warfarin Diverticulosis 11/17/2013 Hyperlipidemia 11/09/2011 IBS (irritable bowel syndrome) 10/29/2010 GERD (gastroesophageal reflux disease) 0 History of aortic valve replacement with metalli c valve 05/14/2010 Overview (06/28/2024): Echo 04/04/10 [facility] (?[facility]) EF60%, AVR peak 29mmHg, mean 17. Mild MR. Pulm pead 35mmHG, no change from 04/16/09 AVR/, mechanical, 09/11/08/ Dr. Dailey Seeing Dr. Dailey yearly Hypertension 05/14/2010 Overview (06/28/2024): normal renal sonogram 10/21/09(not duplex) Major depression 05/14/2010 Osteoporosis 05/14/2010 Seasonal allergies 05/14/2010 Resolved Problems Problem Noted Date Diagnosed Date Resolved Date Asthmatic bronchitis , chron ic ([facility] V24, [facility] V28) 11/08/2014 06/15/2025 Encounters Date Type Department Care Team Description 07/03/2025 3:18 PM EDT - 07/03/2025 11:59 PM EDT Hospital Encounter Radiology Department - [address] [phone] Encounter for screening mammogram for breast cancer Discharge Disposition: Home or Self Care 06/28/2025 2:40 PM EDT Clinical Support [address] [phone] H/O mechanical aortic valve replacement (Primary Dx); Hx-TIA (transient ischemic attack); snf (current) use of 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 06/21/2025 2:30 PM EDT [facility] [address] [phone] H/O mechanical aortic valve replacement (Primary Dx); Hx-TIA (transient ischemic attack); snf (current) use of 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 06/19/2025 Telephone Urogynecology - [address] [phone] Stefanie Alvarado MD 06/15/2025 2:30 PM EDT Office Visit Adult Medicine [address] [phone] Mary Ann Hickman MD Type 2 diabetes mellitus with stage 2 chronic kidney disease, without long-term current use of insulin ([facility] V24, [facility] V28) (Primary Dx); Age-related osteoporosis without current pathological fracture; Mixed hyperlipidemia; Acquired hypothyroidism; Anxiety and depression 06/14/2025 2:30 PM EDT [facility] [address] [phone] H/O mechanical aortic valve replacement (Primary Dx); Hx-TIA (transient ischemic attack); 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 06/07/2025 11:00 AM EDT Office Visit Urogynecology [address] [phone] Stefanie Alvarado MD Mixed stress and urge urinary incontinence (Primary Dx) 06/06/2025 11:00 AM EDT Office Visit Orthopedic Surgery - [place] [address] [place] [phone] Rebel Acharya, DPM Dermatophytosis of nail (Primary Dx); Closed nondisplaced fracture of fifth metatarsal bone of right foot with routine healing, subsequent encounter; Sprain of anterior talofibular ligament of right ankle, sequela; Arthritis of right ankle 06/05/2025 2:10 PM EDT Anticoagulation - Warfarin Visit [facility] - [address] [phone] H/O mechanical aortic valve replacement (Primary Dx); Hx-TIA (transient ischemic attack); 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 05/29/2025 2:30 PM EDT Anticoagulation - Warfarin Visit [address] [phone] H/O mechanical aortic valve replacement (Primary Dx); Hx-TIA (transient ischemic attack); snf (current) use of 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 05/24/2025 2:20 PM EDT Anticoagulation - Warfarin Visit Cou[facility] [address] [phone] H/O mechanical aortic valve replacement (Primary Dx); Hx-TIA (transient ischemic attack); snf (current) use of 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 05/21/2025 2:40 PM EDT Anticoagulation - Warfarin Visit [address] [phone] H/O mechanical aortic valve replacement (Primary Dx); Hx-TIA (transient ischemic attack); 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 05/18/2025 1:40 PM EDT Anticoagulation - Warfarin Visit [address] [phone] H/O mechanical aortic valve replacement (Primary Dx); Hx-TIA (transient ischemic attack); snf (current) use of 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 05/07/2025 Anticoagulation - Warfarin Visit [facility] [address] [phone] Alicia Damon LPN H/O mechanical aortic valve replacement (Primary Dx); Hx-TIA (transient ischemic attack); 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 05/04/2025 11:04 AM EDT - 05/04/2025 11:59 PM EDT Hospital Encounter Ultrasound - [facility] [address] [place], [place] [address], [place] [phone] Calf swelling Discharge Disposition: Home or Self Care 05/03/2025 2:18 PM EDT - 05/03/2025 11:59 PM EDT Hospital Encounter Xray - [facility] [address] [place] [address] Fall, initial encounter; Acute pain of right knee Discharge Disposition: Home or Self Care 05/03/2025 2:00 PM EDT Office Visit Walk-In Clinic - [address] [phone] Sofie Velazco NP Fall, initial encounter (Primary Dx); Acute pain of right knee; Calf swelling 05/03/2025 Anticoagulation - Warfarin Visit [facility] [address] [phone] Kelly Charlton LPN H/O mechanical aortic valve replacement (Primary Dx); Hx-TIA (transient ischemic attack); snf (current) use of 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 05/03/2025 Telephone Coumadin [address] [phone] Kelly Charlton LPN 05/03/2025 Telephone Coumadin [address] [phone] Kelly Charlton LPN 04/27/2025 Telephone Adult Medicine [address] [phone] Mary Ann Hickman MD 04/26/2025 Anticoagulation - Warfarin Visit [facility] [address] [phone] Alicia Damon LPN H/O mechanical aortic valve replacement (Primary Dx); Hx-TIA (transient ischemic attack); 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 04/20/2025 Telephone Adult [address] [phone] Mary Ann Hickman MD 04/19/2025 Anticoagulation - Warfarin Visit [facility] [address] [phone] Kelly Charlton LPN H/O mechanical aortic valve replacement (Primary Dx); Hx-TIA (transient ischemic attack); snf (current) use of 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 04/18/2025 2:15 PM EDT Office Visit Orthopedic Surgery [facility] [address] [phone] Rebel Acharay, DPM Closed nondisplaced fracture of fifth metatarsal bone of right foot, initial encounter (Primary Dx); Follow-up exam 04/13/2025 Anticoagulation - Warfarin Visit [facility] 175 [address] [place] [phone] Jacquelin Alvarez LPN H/O mechanical aortic valve replacement (Primary Dx); Hx-TIA (transient ischemic attack); 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 04/13/2025 Anticoagulation - Warfarin Visit [facility] [address] [place] [phone] Jacquelin Alvarez LPN H/O mechanical aortic valve replacement (Primary Dx); Hx-TIA (transient ischemic attack); 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 04/05/2025 Anticoagulation - Warfarin Visit [address] [phone] Alicia Damon LPN H/O mechanical aortic valve replacement (Primary Dx); Hx-TIA (transient ischemic attack); 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 04/05/[address] [phone] Mary Ann Hickman MD from Last 3 Months Immunizations Immunization Administration Dates Next Due H1N1 Inj Preservative Free 10/01/2009 Influenza Quadravalent, MDCK , 0.5ml, with preservative (Flucelvax) 6mo and older 06/22/2017 Influenza trivalent, 0.5mL ( Fluad) 65yo and older 08/11/2024,07/09/2023,07/08/2023,06/24,07/06/2021,07/05/2021,06/12/2019 Influenza trivalent, 0.5mL ( Fluzone High-dose) 65yo and older 05/05/2025,06/12/2019 Influenza trivalent, 0.5mL, preservative free (Fluarix; FluLaval; Fluzone) ages 6mo and older (Afluria) 3 years and older 05/14/2020,06/14/2015,06/15/2014,07/10,06/02/2012,05/27/2011,05/29/2010 Influenza trivalent, with pr eservative (Fluzone; Afluria) 6mo and older 07/10/2016,06/27/2009,07/03/2006,07/22 Influenza, Unspecified 07/10/2016 Moderna Covid-19 Bivalent, O riginal + Ba.1 (Non-US Tradename Spikevax Bivalent) 06/24/2022 Pfizer (ages 12 & older) Biv alent, COVID-19 07/09/2023,06/24/2022 Pfizer SARS-CoV-2 COVID-19, mRNA, LNP-S, preservative free 07/08/2023 Pneumococcal conjugate 13 va lent (Prevnar 13, PCV13) 2mo and older 05/14/2020 Pneumococcal conjugate 20 va lent (Prevnar 20, PCV 20) 2mo and older 07/09/2023,07/08/2023 Pneumococcal conjugate 21 va lent (CAPVAXIVE, PCV 21) 19yo and older 05/05/2025 Pneumococcal polysaccharide 23 valent (Pneumovax 23) 2yo and older 07/24/2021,06/27/2009 TD, Adsorbed, Preservative Free 03/27/2001 Tdap Tetanus diptheria acell ular pertussis (Boostrix; Adacel) 7yo and older 02/26/2024,05/19/2015,05/15/2014,02/25 Zoster Live 09/21/2012,09/21/2012 Zoster recombinant (Shingrix ) 19yo and older 08/06/2020,05/14/2020 Surgical History Surgery Date Site/Laterality Comments CARDIAC SURGERY PROCEDURE:CARDIAC SURGERY;COMMENT:AVR GASTRIC BYPASS PROCEDURE:GASTRIC BYPASS CAROTID ENDARTERECTOMY PROCEDURE:CAROTID ENDARTERECTOMY TOTAL HIP ARTHROPLASTY PROCEDURE:TOTAL HIP ARTHROPLASTY GASTRIC BYPASS 05/16 PROCEDURE: GASTRIC BYPASS FOR OBESIT; COMMENT: Stapling CHOLECYSTECTOMY 05/16 PROCEDURE: HISTORICAL CHOLECYSTECTOMY; COMMENT: at time of gastric bypass VENTRAL HERNIA REPAIR 2002 after bypass PROCEDURE: HISTORICAL VTRL WALL HERNIA RE; COMMENT: twice, infected mesh, open wound 10mo SECTION & PROCEDURE: HISTORICAL HYSTERECTOMY PROCEDURE: HISTORICAL HYSTERECTOMY; COMMENT: complete (2 separate surgeries) AORTIC VALVE REPLACEMENT 09/11/08 PROCEDURE: HISTORICAL AORTIC VALVE REPL; COMMENT: mechanical, on warfarin COLONOSCOPY 12/[address] Mackay PROCEDURE: HISTORICAL COLONOSCOPY APPENDECTOMY PROCEDURE: HISTORICAL APPENDECTOMY UPPER GASTROINTESTINAL ENDOSCOPY 07/21/2005 PROCEDURE: NM UPPER GI ENDOSCOPY PERFORMED; COMMENT: Radha; normal postop anatomy. BACK SURGERY PROCEDURE: HISTORICAL BACK SURGERY CAROTID ENDARTERECTOMY 07/13/16 PROCEDURE: HISTORICAL CAROTID ENDART COLONOSCOPY 08/20/2020 PROCEDURE: HISTORICAL COLONOSCOPY; COMMENT: mild sigmoid diverticulosis Medical History Medical History Date Comments Arthritis DX:Arthritis Stroke ([facility] V24, [facility] V28) DX:Stroke ([facility]);COMMENT:TIA High cholesterol DX:High cholest joel Diabetes mellitus ([facility] V 24, [facility] V28) DX:Diabetes mellitus ([facility]);COMMENT:diet controlled Anxiety and depression DX:Anxiet y and depression IBS (irritable bowel syndrome) D X:IBS (irritable bowel syndrome) Disease of thyroid gland DX:Dise ase of thyroid gland Migraine DX:Migraine Obesity, unspecified DX:Obesity, unspecified; COMMENT: gastric bypass 2003 Tobacco use disorder DX:Tobacco use disorder Aortic valve replaced 05/14/2010 DX:Aortic valve replaced; COMMENT: dr michael Abdominal adhesions 05/17/2010 DX:Abdominal adhesions GERD (gastroesophageal reflux disease) 05/14/2010 DX:GERD (gastroesophageal reflux disease); COMMENT: [facility] GI Depression 05/14/2010 DX:Depression Adjustment reaction with anx iety and depression 05/14/2010 DX:Adjustment reaction with anxiety and depression Tobacco abuse, in remission 12/16/2005 DX:T obacco abuse, in remission Carotid stenosis DX:Carotid sten osis; COMMENT: dr cisneros At risk for falling DX:At risk f or falling Cataract 12/2017 DX:Cataract Abdominal pain DX:Abdominal danielle n Change in bowel habits DX:Change in bowel habits IBS (irritable bowel syndrome) D X:IBS (irritable bowel syndrome) Family History Medical History Relation Name Comments Hypertension Father Coronary artery disease Mother Stro ke Diabetes Mother Breast cancer Neg Hx Relation Name Status Comments Brother Alive x2, obese, HTN, diabetes Father (Age 75) HTN, aneur ysm, Etohism Mother (Age 75) Diabetes, CAD, stroke, possibly Bipolar Sister Alive HTN, possibly B ipolar Son Alive possibly Bipola r Social History Tobacco Use Types Packs/Day Years [...] care for your loved ones. For example, child & adolescent psychiatrist or elderly care for an older adult? [...] on file Sexual Orientation Not on file Obstetrics History Para Term AB IAB SAB Ectopic Multiple Livin g Live Births 2 2 2 2 Date Outcome GA Total Labor Labor/2nd/3rd Weight Sex Type Anes PTL Karissa A1 A5 Name Clin Term Term Last Filed Vital Signs Vital Sign Reading Time Taken Comments Blood Pressure 108/54 06/15/2025 2:36 PM EDT Pulse 76 06/15/2025 2:36 PM EDT Temperature 36.6 C (97.8 F) 06/15/2025 2:36 PM EDT Respiratory Rate 14 06/15/2025 2:36 PM EDT Oxygen Saturation 98% 06/15/2025 2:36 PM EDT Inhaled Oxygen Concentration - - Weight 96.2 kg (212 lb) 06/15/2025 2:36 PM EDT Height 165.1 cm (5' 5 ) 06/15/2025 2:36 PM EDT Body Mass Index 35.28 06/15/2025 2:36 PM EDT Plan of Treatment Upcoming Encounters Date Type Department Care Team (Late st Contact Info) Description 07/05/2025 2:45 PM EDT Clinical Support Coumadin [address] [phone] 07/18/2025 11:00 AM EST Office Visit Orthopedic Surgery - [place] [address] [phone] Rebel Acharya, DPAlexis [address] [phone] 09/10/2025 3:15 PM EST Office Visit Urogynecology - [address] [phone] Stefanie Alvarado MD [address] [place] [phone] 09/18/2025 11:30 AM EST Office Visit Adult Medicine [place] - [address] [phone] Mary Ann Hickman MD [address] [place] [address] Health Maintenance Due Date Last Done Comments Diabetes: Annual Foot Exam 1962 Diabetes: Annual Retina Eye Exam 1962 RSV Immunization Adult Patients (1 - Risk 50-74 years 1-dose series) 2002 Falls Risk Assessment 08/21/2022 Medicare Annual Wellness Visit 08/21/2022 Diabetes: Annual Urine Albumin-Creatinine Ratio (uACR) 02/04/2024 02/03/2023 Diabetes: Blood Sugar Control Test (HGBA1C) 07/05/2024 01/04/2024 COVID-19 Vaccine ( season) 2025 07/09/2023, 07/08/2023, 06/24/2022, Additional history exists Breast Cancer Screening 02/23/2026 07/03/20 25, 02/24/2024, 02/24/2024, Additional history exists Social Influencers of Health Screening 02/28/2026 02/28/2025 Diabetes: Annual GFR (Glomerular Filtration Rate) 05/04/2026 05/04/2025, 02/19/2025, 02/12/2025, Additional history exists Hypertension/CHF/CAD Annual BMP Blood Test 05/04/2026 05/04/2025, 02/19/2025, 02/12/2025, Additional history exists Cholesterol Screening (Lipid Panel) 05/04/2030 05/04/2025, 01/04/2024 Colorectal Cancer Screening: Colonoscopy 08/20/2030 08/20/2020 Osteoporosis Screening (Bone Density Screening) 02/09/2034 02/10/2024, 02/10/2024, 10/09/2021, Additional history exists DTaP,Tdap,and Td Vaccines (5 - Td or Tdap) 02/25/2034 02/26/2024, 05/19/2015, 05/15/2014, Additional history exists Hepatitis C Screening Completed 03/22/2017 Zoster Vaccines Completed 08/06/2020, 09/0 09/2019, 09/21/2012, Additional history exists Depression Screening Completed 02/28/2025, 08/26/20 23 Influenza Vaccine Completed 05/05/2025, , 07/09/2023, Additional history exists Pneumococcal Vaccine: 50+ Years Completed 05/05/2025, 07/09/2023, 07/08/2023, Additional history exists HIB Vaccines Aged Out No longer eligi ble based on patient's age to complete this topic HPV Vaccines Aged Out No longer eligi ble based on patient's age to complete this topic Hepatitis A Vaccines Aged Out No long er eligible based on patient's age to complete this topic Hepatitis B Vaccines Aged Out No long er eligible based on patient's age to complete this topic IPV Vaccines Aged Out No longer eligi ble based on patient's age to complete this topic MMR Vaccines Aged Out No longer eligi ble based on patient's age to complete this topic Meningococcal ACWY Vaccine Aged Out N o longer eligible based on patient's age to complete this topic Meningococcal B Vaccine Aged Out No l onger eligible based on patient's age to complete this topic RSV Immunization Patients Under 20 months Aged Out No longer eligible based on patient's age to complete this topic Varicella Vaccines Aged Out No longer eligible based on patient's age to complete this topic Procedures Procedure Name Priority Date/Time Associated Diagnosis Comments MG MAMMO DIGITAL SCREENING W KERVIN BILAT Routine 07/03/2025 3:30 PM EDT Encounter for screening mammogram for breast cancer POC PROTIME INR BLOOD Routine 06/28/2025 3:03 PM EDT H/O mechanical aortic valve replacement Hx-TIA (transient ischemic attack) 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 POC PROTIME INR BLOOD Routine 06/21/2025 2:27 PM EDT H/O mechanical aortic valve replacement Hx-TIA (transient ischemic attack) snf (current) use of 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 POC PROTIME INR BLOOD Routine 06/14/2025 2:35 PM EDT H/O mechanical aortic valve replacement Hx-TIA (transient ischemic attack) snf (current) use of 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 POC URINE AUTO W/O MICRO Routine 06/07/2025 11:43 AM EDT Mixed stress and urge urinary incontinence POC PROTIME INR BLOOD Routine 06/05/2025 H/O mechanical aortic valve replacement Hx-TIA (transient ischemic attack) snf (current) use of 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 POC PROTIME INR BLOOD Routine 05/29/2025 H/O mechanical aortic valve replacement Hx-TIA (transient ischemic attack) snf (current) use of 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 POC PROTIME INR BLOOD Routine 05/24/2025 H/O mechanical aortic valve replacement Hx-TIA (transient ischemic attack) 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 POC PROTIME INR BLOOD Routine 05/21/2025 H/O mechanical aortic valve replacement Hx-TIA (transient ischemic attack) snf (current) use of 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 POC PROTIME INR BLOOD Routine 05/18/2025 H/O mechanical aortic valve replacement Hx-TIA (transient ischemic attack) snf (current) use of 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 PROTHROMBIN TIME WITH INR Routine 05/07/2025 VAS US DUPLEX LOWER EXT VENOUS RIGHT Routine 05/04/2025 11:31 AM EDT Calf swelling GONZALEZ URINE CULTURE TUBE Routine 05/04/2025 11:05 AM EDT Acute cystitis with hematuria URINALYSIS WITH REFLEX MICROSCOPIC AND CULTURE Routine 05/04/2025 11:05 AM EDT Acute cystitis with hematuria COMPLETE BLOOD COUNT Routine 05/04/2025 11:05 AM EDT H/O mechanical aortic valve replacement LIPID PANEL WITH REFLEX TO DIRECT LDL Routine 05/04/2025 11:05 AM EDT Mixed hyperlipidemia THYROID STIMULATING HORMONE WITH REFLEX TO FREE T4 AND FREE T3 Routine 05/04/2025 11:05 AM EDT Acquired hypothyroidism COMPREHENSIVE METABOLIC PANEL Routine 05/04/2025 11:05 AM EDT Stage 3a chronic kidney disease (CMS/HCC V24, CMS/HCC V28) URINALYSIS WITH REFLEX MICROSCOPIC AND CULTURE Routine 05/04/2025 11:05 AM EDT Acute cystitis with hematuria XR KNEE 4+ VIEWS RIGHT STAT 05/03/2025 2:35 PM EDT Fall, initial encounter Acute pain of right knee PROTHROMBIN TIME WITH INR Routine 05/03/2025 PROTHROMBIN TIME WITH INR Routine 04/26/2025 PROTHROMBIN TIME WITH INR Routine 04/19/2025 XR FOOT 3+ VIEWS RIGHT Routine 04/18/2025 2:27 PM EDT Follow-up exam PROTHROMBIN TIME WITH INR Routine 04/13/2025 PROTHROMBIN TIME WITH INR Routine 04/13/2025 POC PROTIME INR BLOOD Routine 04/05/2025 H/O mechanical aortic valve replacement Hx-TIA (transient ischemic attack) 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 DXA BONE DENSITY STUDY 1+ SITS AXIAL SKEL Routine 02/10/2024 1:04 PM EDT Age-related osteoporosis without current pathological fracture HEMOGLOBIN A1C Routine 01/04/2024 HM DEPRESSION SCREENING Routine 08/26/2023 HM URINE ALBUMIN CREATININE RATIO Routine 02/03/2023 HM COLONOSCOPY Routine 08/20/2020 HM HEPATITIS C SCREENING Routine 03/22/2017 from Last 3 Months or Most Recently Relevant to Health Maintenance Results * (ABNORMAL) MG Mammo Digital Screening [...] compression, full-field ML, targeted ultrasound Mammo Location: [facility], [address] [place] [address], [id number], . -------- FINAL REPORT -------- Dictated By: Garett Kumar Dictated Date: 07/04/2025 16:49 ET Assigned Physician: Garett Kumar Reviewed and Electronically Signed By: Garett Kumar Signed Date: 07/04/2025 16:52 ET Workstation ID: [id number] Transcribed By: Self Edit Transcribed Date: 07/04/2025 [...] spotcompression, full-field ML, targeted ultrasound Mammo Location: [facility], [address] [place] [address], [id number], . -------- FINAL REPORT -------- Dictated By: Garett Kumar Dictated Date: 07/04/2025 16:49 ET Assigned Physician: aGrett Kumar Reviewed and Electronically Signed By: Garett Kumar Signed Date: 07/04/2025 16:52 ET Workstation ID: [id number] Transcribed By: Self Edit Transcribed Date: 07/04/2025 16:49 ET Mary Ann Hickman MD IMG BI PROCEDURES Final Result * POC Protime INR Blood (06/28/2025 3:03 PM EDT) Only the most recent of9 resultswithin the time period is included. Lot Number INR POC 1.5 Prothrombin Time POC Exp Date Blood 06/28/2025 3:03 PM EDT Mary Ann Hickman MD POINT OF CARE TEST ENTER/EDIT OR DERABLES Final Result * POC Urine Auto W/O Micro (06/07/2025 11:43 AM EDT) Glucose UA POC Negative Negative, Trace mg/dL Bilirubin UA POC Negative Negative Ketones UA POC Negative Negative Specific [place] UA POC 1.015 Blood UA POC Negative Negative PH UA POC 6.0 Protein UA POC Negative Negative mg/dL Urobilinogen UA POC 0.2 E.U./dL 0.2 E.U./dL, 1.0 E.U./dL, 8 , Unable to interpret due to interfering substances mg/dL Nitrite UA POC Negative Negative Leukocytes UA POC Negative Negative Urine Urine specimen obtained by clean catch procedure / Unknown 06/07/2025 11:43 AM EDT Stefanie Alvarado MD POINT OF CARE TEST ENTER/EDIT O RDERABLES Final Result * Prothrombin time with INR (05/07/2025) Only the most recent of6 resultswithin the time period is included. INR 3.3 Comment:jessica fragoso Prothrombin Time POC Blood Venous blood specimen / Unknown 05/07/2025 Clem Hamilton MD LAB BLOOD ORDERABLES Final Result * Vascular US duplex lower extremity venous right (05/04/2025 11:31 AM EDT) Anatomical Region Laterality Modality Vascular, Abdomen Ultrasound 05/04/2025 11:5 7 AM EDT Impressions 05/04/2025 12:00 PM EDT Limited examination due to body habitus and severe edema. Not visualized posterior tibial and peroneal veins. No ultrasound evidence of deep venous thrombus in the visualized portion of the deep venous system of the right leg at this time from the upper groin throughout the calf. -------- FINAL REPORT -------- Dictated By: Aminata May Dictated Date: 05/04/2025 11:57 ET Assigned Physician: Aminata May Reviewed and Electronically Signed By: Aminata May Signed Date: 05/04/2025 12:00 ET Workstation ID: [id number] Transcribed By: Self Edit Transcribed Date: 05/04/2025 11:57 ET Narrative 05/04/2025 12:00 PM EDT VAS US DUPLEX LOWER EXT VENOUS RIGHT VENOUS ULTRASOUND, RIGHT LOWER EXTREMITY HISTORY: Edema in the right lower extremity. Procedure: Venous ultrasound of the right leg was performed from the upper groin throughout the calf. Examination was limited due to patient's body habitus as well as prominent edema. FINDINGS: Posterior tibial and peroneal veins were noted to visualized. Visualized portion of the deep venous system of the right lower extremity revealed no echogenic thrombus was seen, adequate compressibility, augmentation and normal wave form respiratory phasicity. No fluid or cyst is seen in the popliteal fossa. Procedure Note Aminata May MD - 05/04/2025 VAS US DUPLEX LOWER EXT VENOUS RIGHT VENOUS ULTRASOUND, RIGHT LOWER EXTREMITY HISTORY: Edema in the right lower extremity. Procedure: Venous ultrasound of the right leg was performed from the uppergroin throughout the calf. Examination was limited due to patient's bodyhabitus as well as prominent edema. FINDINGS: Posterior tibial and peroneal veins were noted to visualized. Visualized portion of the deep venous system of the right lower extremityrevealed no echogenic thrombus was seen, adequate compressibility,augmentation and normal wave form respiratory phasicity. No fluid or cystis seen in the popliteal fossa. IMPRESSION: Limited examination due to body habitus and severe edema. Not visualizedposterior tibial and peroneal veins. No ultrasound evidence of deep venousthrombus in the visualized portion of the deep venous system of the rightleg at this time from the upper groin throughout the calf. -------- FINAL REPORT -------- Dictated By: Aminata May Dictated Date: 05/04/2025 11:57 ET Assigned Physician: Aminata May Reviewed and Electronically Signed By: Aminata May Signed Date: 05/04/2025 12:00 ET Workstation ID: [id number] Transcribed By: Self Edit Transcribed Date: 05/04/2025 11:57 ET us Sofie Velazco NP CV VASCULAR PROCEDURES Final R esult * (ABNORMAL) Urinalysis with reflex microscopic and culture (05/04/2025 11:05 AM EDT) Specific [place] Urine 1.022 1.003 - 1.030 LAB URINALYSIS - AUTOMATED METHOD 05/04/2025 2:00 PM [facility] pH, Urine 5.5 5.0 - 8.0 pH LAB URINALYSIS - AUTOMATED METHOD 05/04/2025 2:00 PM [facility] Leukocytes, Urine Negative Negative LAB URINALYSIS - AUTOMATED METHOD 05/04/2025 2:00 PM [facility] Nitrite, Urine Negative Negative LAB URINALYSIS - AUTOMATED METHOD 05/04/2025 2:00 PM [facility] Protein, Urine Trace <=Trace mg/dL LAB URINALYSIS - AUTOMATED METHOD 05/04/2025 2:00 PM [facility] Glucose, Urine Negative Negative mg/dL LAB URINALYSIS - AUTOMATED METHOD 05/04/2025 2:00 PM [facility] Ketones, Urine Trace(A) Negative mg/dL LAB URINALYSIS - AUTOMATED METHOD 05/04/2025 2:00 PM [facility] Urobilinogen, Urine 1.0 0.2 - 1.0 mg/dL LAB URINALYSIS - AUTOMATED METHOD 05/04/2025 2:00 PM [facility] Bilirubin, Urine Negative Negative LAB URINALYSIS - AUTOMATED METHOD 05/04/2025 2:00 PM T [facility] Blood, Urine Small(A) Negative LAB URINALYSIS - AUTOMATED METHOD 05/04/2025 2:00 PM [facility] RBC, Urine 22.4(H) 0 - 4 /HPF LAB URINALYSIS - AUTOMATED METHOD 05/04/2025 2:00 PM [facility] WBC, Urine 1.4 0 - 4 /HPF LAB URINALYSIS - AUTOMATED METHOD 05/04/2025 2:00 PM [facility] Squamous Epithelial, Urine 43 0 - 60 /LPF LAB URINALYSIS - AUTOMATED METHOD 05/04/2025 2:00 PM [facility] Bacteria, Urine Negative Negative /HPF LAB URINALYSIS - AUTOMATED METHOD 05/04/2025 2:00 PM [facility] Hyaline Casts, Urine 1.2 0 - 3 /LPF LAB URINALYSIS - AUTOMATED METHOD 05/04/2025 2:00 PM [facility] Urine Urine specimen obtained by clean catch procedure / Unknown Non-blood Collection / Unknown 05/04/2025 11:05 AM EDT 05/04/2025 11:05 AM EDT us Kun Bourgeois CAUSTICISER LAB URINE ORDERABLES Final R esult [facility] [address] [place] [address], * Gonzalez urine culture tube (05/04/2025 11:05 AM EDT) Extra Tube Hold for add-ons. 05/04/2025 2:01 PM EDT [facility] Comment:Auto resulted. Urine Urine specimen obtained by clean catch procedure / Unknown Non-blood Collection / Unknown 05/04/2025 11:05 AM EDT 05/04/2025 11:05 AM EDT Kun Bourgeois NP LAB URINE ORDERABLES Final R esult Performing Organization Address [facility]/ZIP Co de Phone Number [facility] [address] [place] [address], [place] [phone] * Thyroid stimulating hormone with reflex to free t4 and free t3 (05/04/2025 11:05 AM EDT) TSH 2.72 0.40 - 4.00 mcIU/mL LAB CHEMISTRY METHOD 05/04/2025 4:14 PM EDT [facility] Blood Venous blood specimen / Unknown Venipuncture / Unknown 05/04/2025 11:05 AM EDT 05/04/2025 11:05 AM EDT Mary Ann Hickman MD LAB BLOOD ORDERABLES Final Resul t Performing Organization Address [facility]/ZIP Co de Phone Number [facility] [address] [place] [address], [place] [phone] * Lipid panel with reflex to direct LDL (05/04/2025 11:05 AM EDT) Cholesterol 134 0 - 200 mg/dL LAB CHEMISTRY METHOD 05/04/2025 3:03 PM EDT [facility] Triglycerides 137 0 - 150 mg/dL LAB CHEMISTRY METHOD 05/04/2025 3:03 PM EDT [facility] HDL 71 >=40 mg/dL LAB CHEMISTRY METHOD 05/04/2025 3:03 PM EDT [facility] LDL Calculated 36 0 - 100 mg/dL LAB CHEMISTRY METHOD 05/04/2025 3:03 PM EDT [facility] Comment:Estimated LDL Calcul ated using equation: Total cholesterol - HDL cholesterol - (Triglycerides/5) VLDL Cholesterol [place] 27.4 mg/dL LAB CHEMISTRY METHOD 05/04/2025 3:03 PM EDT [facility] Non HDL Chol. (LDL+VLDL) 63 <145 mg/dL LAB CHEMISTRY METHOD 05/04/2025 3:03 PM EDT [facility] Chol/HDL Ratio 1.9 0.0 - 4.4 LAB CHEMISTRY METHOD 05/04/2025 3:03 PM EDT [facility] Blood Venous blood specimen / Unknown Venipuncture / Unknown 05/04/2025 11:05 AM EDT 05/04/2025 11:05 AM EDT us Mary Ann Hickman MD LAB BLOOD ORDERABLES Final Resul t [facility] [address] [place] [address], [place] [phone] * (ABNORMAL) Complete blood count (05/04/2025 11:05 AM EDT) WBC 5.9 4.8 - 10.8 K/mcL LAB HEMETOLOGY METHOD 05/04/2025 2:00 PM [facility] RBC 4.10 3.80 - 4.80 M/mcL LAB HEMETOLOGY METHOD 05/04/2025 2:00 PM [facility] Hemoglobin 12.1 11.5 - 16.0 g/dL LAB HEMETOLOGY METHOD 05/04/2025 2:00 PM EDT [facility] Hematocrit 39.4 35.0 - 47.0 % LAB HEMETOLOGY METHOD 05/04/2025 2:00 PM [facility] MCV 95.9 79.0 - 98.0 FL LAB HEMETOLOGY METHOD 05/04/2025 2:00 PM [facility] MCH 29.4 27.0 - 32.0 pcg LAB HEMETOLOGY METHOD 05/04/2025 2:00 PM EDT [facility] MCHC 30.7(L) 32.0 - 37.0 g/dL LAB HEMETOLOGY METHOD 05/04/2025 2:00 PM EDT [facility] RDW 14.3 11.0 - 15.0 % LAB HEMETOLOGY METHOD 05/04/2025 2:00 PM EDT [facility] Platelets 188 130 - 400 K/mcL LAB HEMETOLOGY METHOD 05/04/2025 2:00 PM EDT [facility] MPV 9.9 7.0 - 11.0 FL LAB HEMETOLOGY METHOD 05/04/2025 2:00 PM EDT [facility] NRBC 0.0 <1.0 % LAB [facility] Absolute 0.00 <0.10 K/mcL LAB HEMETOLOGY METHOD 05/04/2025 2:00 PM T [facility] Blood Venous blood specimen / Unknown Venipuncture / Unknown 05/04/2025 11:05 AM EDT 05/04/2025 11:05 AM EDT us Stevie Zuñiga MD LAB BLOOD ORDERABLES Final Result [facility] [address] [place] [address], * (ABNORMAL) Comprehensive metabolic panel (05/04/2025 11:05 AM EDT) Sodium 142 133 - 145 mmol/L LAB CHEMISTRY METHOD 05/04/2025 3:20 PM [facility] Potassium 4.2 3.5 - 5.5 mmol/L LAB CHEMISTRY METHOD [facility] Chloride 111(H) 96 - 110 mmol/L LAB CHEMISTRY METHOD 05/04/2025 3:20 PM [facility] CO2 25 21 - 32 mmol/L LAB CHEMISTRY METHOD 05/04/2025 3:20 PM [facility] Anion Gap 6 3 - 11 LAB CHEMISTRY METHOD 05/04/2025 3:20 PM [facility] Glucose 77 70 - 100 mg/dL LAB CHEMISTRY METHOD 05/04/2025 3:20 PM [facility] BUN 19 5 - 25 mg/dL LAB CHEMISTRY METHOD 05/04/2025 3:20 PM [facility] Creatinine 1.11(H) 0.50 - 1.10 mg/dL LAB CHEMISTRY METHOD 05/04/2025 3:20 PM [facility] eGFR 53(L) >=60 mL/min/1. 73m2 LAB CHEMISTRY METHOD 05/04/2025 3:20 PM [facility] Comment:Calculation based on the Chronic Kidney Disease Epidemiology Collaboration (CKD-EPI) equation refit without adjustment for race. BUN/Creatinine Ratio 17.1 LAB CHEMISTRY METHOD 05/04/2025 3:20 PM [facility] Calcium 9.0 8.5 - 10.5 mg/dL LAB CHEMISTRY METHOD 05/04/2025 3:20 PM [facility] AST (SGOT) 18 10 - 42 unit/L LAB CHEMISTRY METHOD 05/04/2025 3:20 PM [facility] ALT (SGPT) 11 10 - 60 unit/L LAB CHEMISTRY METHOD 05/04/2025 3:20 PM [facility] Alkaline Phosphatase 152(H) 42 - 121 unit/L LAB CHEMISTRY METHOD 05/04/2025 3:20 PM [facility] Total Protein 6.5 6.0 - 8.0 g/dL LAB CHEMISTRY METHOD 05/04/2025 3:20 PM [facility] Albumin 3.3 3.2 - 5.0 g/dL LAB CHEMISTRY METHOD 05/04/2025 3:20 PM EDT [facility] Total Bilirubin 0.3 0.0 - 1.4 mg/dL LAB CHEMISTRY METHOD 05/04/2025 3:20 PM EDT [facility] Blood Venous blood specimen / Unknown Venipuncture / Unknown 05/04/2025 11:05 AM EDT 05/04/2025 11:05 AM EDT us Mary Ann Hickman MD LAB BLOOD ORDERABLES Final Resul t [facility] [address] [place] [address], [place] [phone] * XR Knee 4+ Views Right (05/03/2025 2:35 PM EDT) Anatomical Region Laterality Modality Lower Extremities, Knee Right Radiogra phic Imaging 05/03/2025 3:14 PM EDT Narrative 05/03/2025 3:17 PM EDT Right knee, 6 views. History status post accidental fall. No previous studies are available for comparison. Bony structures are osteopenic. There are extensive post operative changes with surgical plate fixated with multiple screws and wires, extending from the mid femoral shaft to the epiphysis of the femur. There is no acute fractures or dislocations. There is narrowing of the joint space medially. There are small marginal osteophytes in all compartments. There is no effusion. Atherosclerotic calcifications are noted. CONCLUSIONS: Extensive post operative changes in the femur. Degenerative changes. No fractures, dislocations or effusion. Osteopenia. -------- FINAL REPORT -------- Dictated By: Aminata May Dictated Date: 05/03/2025 15:14 ET Assigned Physician: Aminata May Reviewed and Electronically Signed By: Aminata May Signed Date: 05/03/2025 15:17 ET Workstation ID: [id number] Transcribed By: Self Edit Transcribed Date: 05/03/2025 15:14 ET Procedure Note Aminata May MD - 05/03/2025 Right knee, 6 views. History status post accidental fall. No previous studies are available for comparison. Bony structures are osteopenic. There are extensive post operative changes with surgical plate fixatedwith multiple screws and wires, extending from the mid femoral shaft tothe epiphysis of the femur. There is no acute fractures or dislocations.There is narrowing of the joint space medially. There are small marginalosteophytes in all compartments. There is no effusion. Atheroscleroticcalcifications are noted. CONCLUSIONS: Extensive post operative changes in the femur. Degenerative changes. Nofractures, dislocations or effusion. Osteopenia. -------- FINAL REPORT -------- Dictated By: Aminata May Dictated Date: 05/03/2025 15:14 ET Assigned Physician: Aminata May Reviewed and Electronically Signed By: Aminata May Signed Date: 05/03/2025 15:17 ET Workstation ID: [id number] Transcribed By: Self Edit Transcribed Date: 05/03/2025 15:14 ET Sfoie Velazco CAUSTICISER IMG XR PROCEDURES Final Result * XR Foot 3+ Views Right (04/18/2025 2:27 PM EDT) Anatomical Region Laterality Modality Lower Extremities, Foot Right Computed Radiography Narrative 04/18/2025 5:21 PM EDT Right foot 3 views Compared to previous radiographs medial bleak view signs of consolidation and bony formation was seen fragment and fifth metatarsal base Rebel Acharya DPM IMG XR PROCEDURES Final R esult * DXA BONE DENSITY STUDY 1+ SITS AXIAL SKEL (02/10/2024 1:04 PM EDT) Anatomical Region Laterality Modality Bone Densitometr y 11/08/2023 3:38 PM EST Narrative 02/10/2024 8:05 PM EDT STUDY: DUAL ENERGY X-RAY ABSORPTIOMETRY / DXA REASON FOR EXAM: Female, 73 years old osteoporosis TECHNIQUE: Bone Mineral Density (BMD) measurements of the lumbar spine and left hip were obtained using [employer] W (S/N [id number]). COMPARISON: October 09, 2021 FINDINGS: L1-L4 BMD: 0.891 g/cm2 L1-L4 T score: -1.4. This corresponds to osteopenia. Left femoral neck BMD: 0.501 g/cm2 Left femoral neck T score: -3.1. This corresponds to osteoporosis. Left total hip BMD: 0.719 g/cm2 Left total hip T score: -1.8. This corresponds to osteopenia. This represents a -5.1* % decrease in bone density compared with prior exam from October 09, 2021. * - Indicates a statistically significant change. IMPRESSION: IMPRESSION: Osteoporosis Reference Information: The T-score is the number of standard deviations above or below the standard which is normal for young adults at their peak bone mineral density. The World Health Organization (WHO) interprets the T-scores as follows: At or above -1 SD Normal bone density Between -1 and -2.5 SD Osteopenia At or below -2.5 SD Osteoporosis Procedure Note Lenny Henriquez MD - 05/01/2024 STUDY: DUAL ENERGY X-RAY ABSORPTIOMETRY / DXA REASON FOR EXAM: Female, 73 years old osteoporosis TECHNIQUE: Bone Mineral Density (BMD) measurements of the lumbar spineand left hip were obtained using [employer] W (S/N [id number]). COMPARISON: October 09, 2021 FINDINGS: L1-L4 BMD: 0.891 g/cm2 L1-L4 T score: -1.4. This corresponds to osteopenia. Left femoral neck BMD: 0.501 g/cm2 Left femoral neck T score: -3.1. This corresponds to osteoporosis. Left total hip BMD: 0.719 g/cm2 Left total hip T score: -1.8. This corresponds to osteopenia. This represents a -5.1* % decrease in bone density compared with priorexam from October 09, 2021. * - Indicates a statistically significant change. IMPRESSION: IMPRESSION: Osteoporosis Reference Information: The T-score is the number of standard deviations above or below thestandard which is normal for young adults at their peak bone mineral density. The World HealthOrganization (WHO) interprets the T-scores as follows: At or above -1 SD Normal bone density Between -1 and -2.5 SD Osteopenia At or below -2.5 SD Osteoporosis Result [facility] Tr Paige MD IMG DXA PROCEDURES Final Result * Hemoglobin A1c (01/04/2024) [facility] Hemoglobin A1C 5.3 <=6.5 % Blood Venous blood specimen / Unknown Result [facility] LAB BLOOD ORDERABLES Radha l Result * Depression Screening (08/26/2023) [facility] Depression Screening abstracted Result [facility] HEALTH MAINTENANCE Final Result * Urine Albumin Creatinine Ratio (02/03/2023) [facility] Urine Albumin Creatinine Ratio abstracted Result [facility] Provider HEALTH MAINTENANCE Final Result * Colonoscopy (08/20/2020) [facility] Colonoscopy no interpretation , abstracted Anatomical Region Laterality Modality Other Result [facility] Hannah OVALLES HEALTH MAINTENANCE Final Result * Hepatitis C Screening (03/22/2017) [facility] Hepatitis C Screening abstracted Result [facility] Provider HEALTH MAINTENANCE Final Result from Last 3 Months or Most Recently Relevant to Health Maintenance Insurance [place] - [place] [employer] MEDICARE MEDICARE Care Teams Cdl Instructor Relationship Specialty Start Date End Date Mary Ann Hickman MD [address] [place] [phone] PCP - General Internal Medicine 08/03/24
--- OUTSIDE RECORDS SUMMARY | 2025-07-04 20:34 | XMS_ITS | Encounter Summary ---
Author Organization [facility] Address [address] [place] [address] Care Team Providers Care Tool And Die Repairer Name Role Phone Mary Ann Hickman MD Primary Care Provider [phone] Encounter Details Date Type Department Care Team (Late Contact Info) Description 10/26/2024 Lab Requisition [facility] - Main Lab 299 [facility] [place] [address] Stevie Zuñiga MD [address] [place] [address] Anemia, unspecified; Unspecified atrial fibrillation (CMS/HCC V24, CMS/HCC V28); Shortness of breath Social History Tobacco Use Types Packs/Day Years [...] 07/05/2025 2:45 PM EDT Clinical Support Coumadin [address] [address] 07/18/2025 11:00 AM EST Office Visit Orthopedic Surgery - [place] [address] [phone] Rebel Acharya, DPM 175 [facility] [address] [place] [address] 09/10/2025 3:15 PM EST Office Visit Urogynecology - [address] [phone] Stefanie Alvarado MD 580 [facility] [address] [place] [address] 09/18/2025 11:30 AM EST Office Visit Adult Medicine West - [address] [phone] Mary Ann Hickman MD [address] [place], [place] documented as of this encounter Procedures Procedure Name Priority Date/Time Associated Diagnosis Comments IRON AND TIBC Routine 10/26/2024 7:36 AM EST Anemia, unspecified Unspecified atrial fibrillation (CMS/HCC) Shortness of breath COMPLETE BLOOD COUNT Routine 10/26/2024 7:36 AM EST Anemia, unspecified Unspecified atrial fibrillation (CMS/HCC) Shortness of breath B-TYPE NATRIURETIC PEPTIDE Routine 10/26/2024 7:36 AM EST Anemia, unspecified Unspecified atrial fibrillation (CMS/HCC) Shortness of breath FERRITIN Routine 10/26/2024 7:36 AM EST Anemia, unspecified Unspecified atrial fibrillation (CMS/HCC) Shortness of breath VITAMIN B12 Routine 10/26/2024 7:36 AM EST Anemia, unspecified Unspecified atrial fibrillation (CMS/HCC) Shortness of breath BASIC METABOLIC PANEL Routine 10/26/2024 7:36 AM EST Anemia, unspecified Unspecified atrial fibrillation (CMS/HCC) Shortness of breath documented in this encounter Results * (ABNORMAL) Vitamin B12 (10/26/2024 7:36 AM EST) [facility] Vitamin B-12 >2,000(H) 250 - 900 pcg/mL LAB CHEMISTRY METHOD 10/26/2024 10:08 AM EST [facility] Blood Venous blood specimen / Unknown Venipuncture / Unknown 10/26/2024 7:36 AM EST 10/26/2024 8:47 AM EST Stevie Zuñiga MD LAB BLOOD ORDERABLES Final Result Performing Organization Address City/[facility]/ZIP Co de Phone Number [facility] [address] [place] [address], [place] [phone] * (ABNORMAL) Ferritin (10/26/2024 7:36 AM EST) [facility] Ferritin 520(H) 8 - 252 ng/mL LAB CHEMISTRY METHOD 10/26/2024 10:08 AM EST [facility] Blood Venous blood specimen / Unknown Venipuncture / Unknown 10/26/2024 7:36 AM EST 10/26/2024 8:47 AM EST us Stevie Zuñiga MD LAB BLOOD ORDERABLES Final Result [facility] [address] [place] [address], [place] [phone] * (ABNORMAL) Iron and TIBC (10/26/2024 7:36 AM EST) [facility] Iron 25(L) 40 - 150 mcg/dL LAB CHEMISTRY METHOD 10/26/2024 9:44 AM EST [facility] TIBC 179(L) 250 - 450 mcg/dL LAB CHEMISTRY METHOD 10/26/2024 9:44 AM EST [facility] Iron Saturation 14(L) 15 - 50 % LAB CHEMISTRY METHOD 10/26/2024 9:44 AM EST [facility] Blood Venous blood specimen / Unknown Venipuncture / Unknown 10/26/2024 7:36 AM EST 10/26/2024 8:47 AM EST Stevie Zuñiga MD LAB BLOOD ORDERABLES Final Result Performing Organization Address City/[facility]/ZIP Co de Phone Number [facility] [address] [place] [address], [place] [phone] * (ABNORMAL) B-type natriuretic peptide (10/26/2024 7:36 AM EST) Pathologist [facility] BNP 200(H) <=100 pcg/mL LAB CHEMISTRY METHOD 10/26/2024 9:59 AM [facility] Blood Venous blood specimen / Unknown Venipuncture / Unknown 10/26/2024 7:36 AM EST 10/26/2024 8:47 AM EST Stevie Zuñiga MD LAB BLOOD ORDERABLES Final Result Performing Organization Address City/[facility]/ZIP Co de Phone Number [facility] [address] [place] [address], [place] [phone] * Basic metabolic panel (10/26/2024 7:36 AM EST) Pathologist [facility] Sodium 136 133 - 145 mmol/L LAB CHEMISTRY METHOD 10/26/2024 9:44 AM EST [facility] Potassium 3.6 3.5 - 5.5 mmol/L LAB CHEMISTRY METHOD 10/26/2024 9:44 AM EST [facility] Chloride 103 96 - 110 mmol/L LAB CHEMISTRY METHOD 10/26/2024 9:44 AM EST [facility] CO2 27 21 - 32 mmol/L LAB CHEMISTRY METHOD 10/26/2024 9:44 AM EST [facility] Anion Gap 6 3 - 11 LAB CHEMISTRY METHOD 10/26/2024 9:44 AM [facility] Glucose 95 70 - 100 mg/dL LAB CHEMISTRY METHOD 10/26/2024 9:44 AM [facility] BUN 22 5 - 25 mg/dL LAB CHEMISTRY METHOD 10/26/2024 9:44 AM [facility] Creatinine 0.96 0.50 - 1.10 mg/dL LAB CHEMISTRY METHOD 10/26/2024 9:44 AM [facility] eGFR 63 >=60 mL/min/1. 73m2 LAB CHEMISTRY METHOD 10/26/2024 9:44 AM [facility] Comment:Calculation based on the Chronic Kidney Disease Epidemiology Collaboration (CKD-EPI) equation refit without adjustment for race. BUN/Creatinine Ratio 22.9 LAB CHEMISTRY METHOD 10/26/2024 9:44 AM [facility] Calcium 8.5 8.5 - 10.5 mg/dL LAB CHEMISTRY METHOD 10/26/2024 9:44 AM [facility] Blood Venous blood specimen / Unknown Venipuncture / Unknown 10/26/2024 7:36 AM EST 10/26/2024 8:47 AM EST us Stevie Zuñiga MD LAB BLOOD ORDERABLES Final Result [facility] [address] [place] [address], * (ABNORMAL) Complete blood count (10/26/2024 7:36 AM EST) WBC 7.4 4.8 - 10.8 K/mcL LAB HEMETOLOGY METHOD 10/26/2024 9:37 AM [facility] RBC 2.50(L) 3.80 - 4.80 M/mcL LAB HEMETOLOGY METHOD 10/26/2024 9:37 AM [facility] Hemoglobin 7.3(L) 11.5 - 16.0 g/dL LAB HEMETOLOGY METHOD 10/26/2024 9:37 AM [facility] Hematocrit 23.9(L) 35.0 - 47.0 % LAB HEMETOLOGY METHOD 10/26/2024 9:37 AM [facility] MCV 95.6 79.0 - 98.0 FL LAB HEMETOLOGY METHOD 10/26/2024 9:37 AM [facility] MCH 29.2 27.0 - 32.0 pcg LAB HEMETOLOGY METHOD 10/26/2024 9:37 AM [facility] MCHC 30.5(L) 32.0 - 37.0 g/dL LAB HEMETOLOGY METHOD 10/26/2024 9:37 AM [facility] RDW 19.9(H) 11.0 - 15.0 % LAB HEMETOLOGY METHOD 10/26/2024 9:37 AM [facility] Platelets 282 130 - 400 K/mcL LAB HEMETOLOGY METHOD 10/26/2024 9:37 AM [facility] MPV 10.0 7.0 - 11.0 FL LAB HEMETOLOGY METHOD 10/26/2024 9:37 AM [facility] NRBC 0.0 <1.0 % LAB HEMETOLOGY METHOD 10/26/2024 9:37 AM [facility] NRBC Absolute 0.00 <0.10 K/mcL LAB HEMETOLOGY METHOD 10/26/2024 9:37 AM [facility] Blood Venous blood specimen / Unknown Venipuncture / Unknown 10/26/2024 7:36 AM EST 10/26/2024 8:47 AM EST us Stevie Zuñiga MD LAB BLOOD ORDERABLES Final Result [facility] [address] [place] [address], documented in this encounter Visit Diagnoses Diagnosis Anemia, unspecified Unspecified atrial fibrillation (CMS/[facility] V24, CMS/[facility] V28) Shortness of breath documented in this encounter Additional Health Concerns Infection Onset Date Last Indicated Resolved Time Influenza 10/25/2024 10/25/2024 11/18/2024 7:04 PM EST Respiratory Rule-Out 10/26/2024 10/25/2024 025 10:36 PM EST documented as of this encounter Care Teams Tool And Die Repairer Relationship Specialty Start Date End Date Mary Ann Hickman MD [address] [place] [phone] PCP - General Internal Medicine 08/03/24 documented as of this encounter
--- OUTSIDE RECORDS SUMMARY | 2025-07-04 20:34 | XMS_ITS | Encounter Summary ---
Author Organization [facility] Address [address] [place] [address] Care Team Providers Care Pe Manager Name Role Phone Mary Ann Hickman MD Primary Care Provider [phone] Encounter Details Date Type Department Care Team (Late Contact Info) Description 10/29/[address] [facility] - Main Lab 299 [facility] [place] [phone] Stevie Zuñiga MD [address] [place] [address] Presence of prosthetic heart valve Social History [...] 07/05/2025 2:45 PM EDT Clinical Support Coumadin [address] [phone] 07/18/2025 11:00 AM EST Office Visit Orthopedic Surgery - [place] 250 175 [facility] 250 [place] [phone] Rebel Acharya, DPM 175 [facility] 250 [place] [address] 09/10/2025 3:15 PM EST Office Visit Urogynecology [address] [phone] Stefanie Alvarado MD [address] [place] [address] [address] [place] [address] 09/18/2025 11:30 AM EST Office Visit Adult Medicine West - [address] [phone] Mary Ann Hickman MD [address] [place] [address] documented as of this encounter Procedures Procedure Name Priority Date/Time Associated Diagnosis Comments PROTHROMBIN TIME WITH INR Routine 10/29/2024 6:46 AM EST Presence of prosthetic heart valve documented in this encounter Results * (ABNORMAL) Prothrombin time with INR (10/29/2024 6:46 AM EST) Protime 25.7(H) 10.6 - 13.9 sec LAB COAGULATION METHOD 10/29/2024 8:55 AM EST [facility] INR 2.1 LAB COAGULATION METHOD 10/29/2024 8:55 AM EST [facility] Blood Venous blood specimen / Unknown Venipuncture / Unknown 10/29/2024 6:46 AM EST 10/29/2024 8:25 AM EST Stevie Zuñiga MD LAB BLOOD ORDERABLES Final Result [facility] 299 [place] [address], documented in this encounter Visit Diagnoses Diagnosis Presence of prosthetic heart valve documented in this encounter Additional Health Concerns Infection Onset Date Last Indicated Resolved Time Influenza 10/25/2024 10/25/2024 11/18/2024 7:04 PM EST documented as of this encounter Care Teams Pe Manager Relationship Specialty Start Date End Date Mary Ann Hickman MD [address] [place] [phone] PCP - General Internal Medicine 08/03/24 documented as of this encounter
--- OUTSIDE RECORDS SUMMARY | 2025-07-04 20:34 | XMS_ITS | Encounter Summary ---
Author Organization [facility] Address [address] [place] [address] Care Team Providers Care Furniture Inspector Name Role Phone Mary Ann Hickman MD Primary Care Provider [phone] Encounter Details Date Type Department Care Team (Late Contact Info) Description 10/26/2024 Lab Requisition [facility] - Main Lab 299 [facility] [place] [address] Stevie Zuñiga MD [address] [place] [address] Chronic obstructive pulmonary disease, unspecified (CMS/HCC V24, CMS/HCC V28); Acute cough Social History Tobacco Use Types Packs/Day Years [...] 07/05/2025 2:45 PM EDT Clinical Support Coumadin [address] [address] 07/18/2025 11:00 AM EST Office Visit Orthopedic Surgery - [place] [address] [phone] Rebel Acharya, DPM [address] [place] [phone] 09/10/2025 3:15 PM EST Office Visit Urogynecology [address] [phone] Stefanie Alvarado MD 580 [facility] [address] [place] [address] 09/18/2025 11:30 AM EST Office Visit Adult Medicine West - [address] [phone] Mary Ann Hickman MD 444 [place], [place] documented as of this encounter Procedures Procedure Name Priority Date/Time Associated Diagnosis Comments [id number], RSV, FLU A AND B QUALITATIVE RT-PCR, LOCAL REFERENCE LAB Routine 10/25/2024 12:00 AM EST Chronic obstructive pulmonary disease, unspecified (CMS/HCC) Acute cough documented in this encounter Results * (ABNORMAL) [id number], RSV, Influenza A and B qualitative RT-PCR (10/25/2024 12:00 AM EST) SARS COV-2 Not Detected Not Detected LAB MOLECULAR DIAGNOSTICS METHOD 10/26/2024 10:36 PM EST [facility] Comment: Disclaimer: The manner in which this information is used to guide patient care is the responsibility of the healthcare provider. Testing was performed using the Hernandez Alinity m SARS-CoV-2 test. This test has been authorized by FDA under an Emergency Use Authorization (EUA). This test is only authorized for the duration of time the declaration that circumstances exist justifying the authorization of the emergency use of in vitro diagnostic tests for detection of SARS-CoV-2 virus and/or diagnosis of COVID-19 infection under section 564(b)(1) of the Act, 21 U.S.C. 360bbb- 3(b)(1), unless the authorization is terminated or revoked sooner. Fact sheet for Healthcare Providers can be found at: https://www.fda.gov/media/074245/download Fact sheet for Patients can be found at: https://www.fda.gov/media/089238/download Influenza A PCR Detected(A ) Not Detected LAB MOLECULAR DIAGNOSTICS METHOD 10/26/2024 10:[address] [facility] Influenza B PCR Not Detected Not Detected LAB MOLECULAR DIAGNOSTICS METHOD 10/26/2024 10:[address] [facility] RSV PCR Not Detected Not Detected LAB MOLECULAR DIAGNOSTICS METHOD 10/26/2024 10:[address] [facility] Swab Nasopharyngeal structure / Unknown Non-blood Collection / Unknown 10/25/2024 10/26/2024 11:44 AM EST Stevie Zuñiga MD LAB MICROBIOLOGY - GENERAL ORDERABLES Final Result [facility] [address] [place] [address], documented in this encounter Visit Diagnoses Diagnosis Chronic obstructive pulmonary disease, unspecified (CMS/[facility] V24, CMS/[facility] V28) Acute cough documented in this encounter Additional Health Concerns Infection Onset Date Last Indicated Resolved Time Influenza 10/25/2024 10/25/2024 11/18/2024 7:04 PM EST Respiratory Rule-Out 10/26/2024 10/25/2024 025 10:36 PM EST documented as of this encounter Care Teams Furniture Inspector Relationship Specialty Start Date End Date Mary Ann Hickman MD [address] [place] [phone] PCP - General Internal Medicine 08/03/24 documented as of this encounter
--- OUTSIDE RECORDS SUMMARY | 2025-07-04 20:34 | XMS_ITS | Encounter Summary ---
Author Organization [facility] Address [address] [place] [address] Care Team Providers Care Gameplay Programmer Name Role Phone Mary Ann Hickman MD Primary Care Provider [phone] Encounter Details Date Type Department Care Team (Late Contact Info) Description 10/27/2024 Lab Requisition [facility] - Main Lab 299 [facility] [place] [phone] Stevie Zuñiga MD [address] [place] [address] Unspecified atrial fibrillation (CMS/HCC V24, CMS/HCC V28) [...] 2:45 PM EDT Clinical Support Coumadin Clinic [address] [phone] 07/18/2025 11:00 AM EST Office Visit Orthopedic Surgery - [place] [address] [phone] Rebel Acharya, DPM 175 [facility] [address] [place] [phone] 09/10/2025 3:15 PM EST Office Visit Urogynecology [address] [phone] Stefanie Alvarado MD [address] [place] [address] [address] [place] [address] 09/18/2025 11:30 AM EST Office Visit Adult Medicine West - [address] [phone] Mary Ann Hickman MD 4 [place], [place] documented as of this encounter Procedures Procedure Name Priority Date/Time Associated Diagnosis Comments PROTHROMBIN TIME WITH INR Routine 10/27/2024 5:47 AM EST Unspecified atrial fibrillation (CMS/HCC) documented in this encounter Results * (ABNORMAL) Prothrombin time with INR (10/27/2024 5:47 AM EST) Protime 35.4(H) 10.6 - 13.9 sec LAB COAGULATION METHOD 10/27/2024 9:53 AM EST [facility] INR 2.9 LAB COAGULATION METHOD 10/27/2024 9:53 AM EST [facility] Blood Venous blood specimen / Unknown Venipuncture / Unknown 10/27/2024 5:47 AM EST 10/27/2024 8:44 AM EST us Stevie Zuñiga MD LAB BLOOD ORDERABLES Final Result [facility] [address] [place] [address], documented in this encounter Visit Diagnoses Diagnosis Unspecified atrial fibrillation ([facility] V24, [facility] V28) documented in this encounter Additional Health Concerns Infection Onset Date Last Indicated Resolved Time Influenza 10/25/2024 10/25/2024 11/18/2024 7:04 PM EST documented as of this encounter Care Teams Gameplay Programmer Relationship Specialty Start Date End Date Mary Ann Hickman MD 4 [place] [phone] PCP - General Internal Medicine 08/03/24 documented as of this encounter
--- OUTSIDE RECORDS SUMMARY | 2025-07-04 20:34 | XMS_ITS | Encounter Summary ---
Author Organization [facility] Address [address] [place] [address] Care Team Providers Care Water Jet Operator Name Role Phone Mary Ann Hickman MD Primary Care Provider [phone] Encounter Details Date Type Department Care Team (Late Contact Info) Description 10/13/2024 Lab Requisition [facility] - Main Lab 299 [facility] [place] [phone] Stevie Zuñiga MD [address] [place] [address] Unspecified atrial fibrillation (CMS/HCC V24, CMS/HCC V28) [...] 2:45 PM EDT Clinical Support Coumadin Clinic [address] [phone] 07/18/2025 11:00 AM EST Office Visit Orthopedic Surgery - [place] [address] [phone] Rebel Acharya, DPM 175 [facility] [address] [place] [address] 09/10/2025 3:15 PM EST Office Visit Urogynecology [address] [phone] Stefanie Alvarado MD [address] [place] [address] [address] [place] [address] 09/18/2025 11:30 AM EST Office Visit Adult Medicine West - [address] [phone] Mary Ann Hickman MD 4 [place], [place] documented as of this encounter Procedures Procedure Name Priority Date/Time Associated Diagnosis Comments PROTHROMBIN TIME WITH INR Routine 10/14/2024 6:14 AM EST Unspecified atrial fibrillation (CMS/HCC) documented in this encounter Results * (ABNORMAL) Prothrombin time with INR (10/14/2024 6:14 AM EST) Protime 35.7(H) 10.6 - 13.9 sec LAB COAGULATION METHOD 10/14/2024 10:13 AM EST [facility] INR 2.9 LAB COAGULATION METHOD 10/14/2024 10:13 AM EST [facility] Blood Venous blood specimen / Unknown Venipuncture / Unknown 10/14/2024 6:14 AM EST 10/14/2024 9:09 AM EST us Stevie Zuñiga MD LAB BLOOD ORDERABLES Final Result [facility] 299 [place] [address], documented in this encounter Visit Diagnoses Diagnosis Unspecified atrial fibrillation ([facility] V24, [facility] V28) documented in this encounter Additional Health Concerns Infection Onset Date Last Indicated Resolved Time Influenza 10/25/2024 10/25/2024 11/18/2024 7:04 PM EST Respiratory Rule-Out 10/26/2024 10/25/2024 025 10:36 PM EST documented as of this encounter Care Teams Water Jet Operator Relationship Specialty Start Date End Date Mary Ann Hickman MD [address] [place] [phone] PCP - General Internal Medicine 08/03/24 documented as of this encounter
--- OUTSIDE RECORDS SUMMARY | 2025-07-04 20:34 | XMS_ITS | Encounter Summary ---
Author Organization [facility] Address [address] [place] [address] Care Team Providers Care Stereo Equipment Installer Name Role Phone Mary Ann Hickman MD Primary Care Provider [phone] Encounter Details Date Type Department Care Team (Late Contact Info) Description 10/12/2024 Lab Requisition [facility] - Main Lab 299 [facility] [place] [phone] Stevie Zuñiga MD [address] [place] [address] Presence of prosthetic heart valve; Acute embolism and thrombosis of unspecified deep veins of unspecified lower extremity (CMS/HCC V24, CMS/HCC V28) Social History Tobacco [...] 07/05/2025 2:45 PM EDT Clinical Support Coumadin [address] [address] 07/18/2025 11:00 AM EST Office Visit Orthopedic Surgery - [place] [address] [place] [address] [place] [phone] Rebel Acharya, DPM 175 [facility] 250 [place] [phone] 09/10/2025 3:15 PM EST Office Visit Urogynecology [address] [phone] Stefanie Alvarado MD [address] [place] [address] [address] [place] [address] 09/18/2025 11:30 AM EST Office Visit Adult [facility] West [address] [phone] Mary Ann Hickman MD 444 [place], [place] documented as of this encounter Procedures Procedure Name Priority Date/Time Associated Diagnosis Comments PROTHROMBIN TIME WITH INR Routine 10/12/2024 6:21 AM EST Presence of prosthetic heart valve Acute embolism and thrombosis of unspecified deep veins of unspecified lower extremity (CMS/HCC) documented in this encounter Results * (ABNORMAL) Prothrombin time with INR (10/12/2024 6:21 AM EST) Protime 22.4(H) 10.6 - 13.9 sec LAB COAGULATION METHOD 10/12/2024 10:25 AM EST [facility] INR 1.8 LAB COAGULATION METHOD 10/12/2024 10:25 AM EST [facility] Blood Venous blood specimen / Unknown Venipuncture / Unknown 10/12/2024 6:21 AM EST 10/12/2024 9:06 AM EST us Stevie Zuñiga MD LAB BLOOD ORDERABLES Final Result [facility] [address] [place] [address], documented in this encounter Visit Diagnoses Diagnosis Presence of prosthetic heart valve Acute embolism and thrombosis of unspecified deep veins of unspecified lower extremity (CMS/[facility] V24, CMS/[facility] V28) documented in this encounter Additional Health Concerns Infection Onset Date Last Indicated Resolved Time Influenza 10/25/2024 10/25/2024 11/18/2024 7:04 PM EST Respiratory Rule-Out 10/26/2024 10/25/2024 025 10:36 PM EST documented as of this encounter Care Teams Stereo Equipment Installer Relationship Specialty Start Date End Date Mary Ann Hickman MD [address] [place] [phone] PCP - General Internal Medicine 08/03/24 documented as of this encounter
--- OUTSIDE RECORDS SUMMARY | 2025-07-04 20:34 | XMS_ITS | Encounter Summary ---
Author Organization [facility] Address [address] [place] [address] Care Team Providers Care Knitted Cloth Examiner Name Role Phone Mary Ann Hickman MD Primary Care Provider Encounter Details Date Type Department Care Team (Late Contact Info) Description 10/14/2024 Lab Requisition [facility] - Main Lab 299 [facility] [place] [address] Stevie Zuñiga MD [address] [place] [id number] intermediate card tender (current) use of 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; Anemia, unspecified; Essential (primary) hypertension; Chronic kidney disease, unspecified Social History Tobacco [...] 2:45 PM EDT [facility] [address] [address] 07/18/2025 11:00 AM EST Office Visit Orthopedic Surgery - [place] [address] [phone] Rebel Acharya, DPM 175 [facility] [address] [place] [phone] 09/10/2025 3:15 PM EST Office Visit Urogynecology [address] [phone] Stefanie Alvarado MD 580 [facility] [address] [place] [address] 09/18/2025 11:30 AM EST Office Visit [facility] - [address] [phone] Mary Ann Hickman MD [address] [place] [address] documented as of this encounter Visit Diagnoses Diagnosis intermediate card tender (current) use of 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 Long-term (current) use of 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 Anemia, unspecified Essential (primary) hypertension Unspecified essential hypertension Chronic kidney disease, unspecified documented in this encounter Additional Health Concerns Infection Onset Date Last Indicated Resolved Time Influenza 10/25/2024 10/25/2024 11/18/2024 7:04 PM EST Respiratory Rule-Out 10/26/2024 10/25/2024 025 10:36 PM EST documented as of this encounter Care Teams Knitted Cloth Examiner Relationship Specialty Start Date End Date Mary Ann Hickman MD [address] [place] [address] PCP - General Internal Medicine 08/03/24 documented as of this encounter
--- OUTSIDE RECORDS SUMMARY | 2025-07-04 20:34 | XMS_ITS | Encounter Summary ---
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; Anemia, unspecified; Essential [...] 2:45 PM EDT [facility] [address] [address] 07/18/2025 11:00 AM EST Office Visit Orthopedic Surgery - [place] [address] [phone] Rebel Acharya, DPM 175 [facility] [address] [place] [address] 09/10/2025 3:15 PM EST Office Visit Urogynecology [address] [phone] Stefanie Alvarado MD 580 [facility] [address] [place] [address] 09/18/2025 11:30 AM EST Office Visit [facility] - [address] [phone] Mary Ann Hickman MD 444 [place], [place] documented as of this encounter Procedures Procedure Name Priority Date/Time Associated Diagnosis Comments PROTHROMBIN TIME WITH INR Routine 10/16/2024 8:00 AM EST 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 Anemia, unspecified Essential (primary) hypertension Chronic kidney disease, unspecified COMPLETE BLOOD COUNT Routine 10/16/2024 8:00 AM EST 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 Anemia, unspecified Essential (primary) hypertension Chronic kidney disease, unspecified BASIC METABOLIC PANEL Routine 10/16/2024 8:00 AM EST 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 Anemia, unspecified Essential (primary) hypertension Chronic kidney disease, unspecified documented in this encounter Results * (ABNORMAL) Prothrombin time with INR (10/16/2024 8:00 AM EST) Protime 54.0(H) 10.6 - 13.9 sec LAB COAGULATION METHOD 10/16/2024 1:22 PM EST [facility] INR 4.4 LAB COAGULATION METHOD 10/16/2024 1:22 PM [facility] Blood Venous blood specimen / Unknown Venipuncture / Unknown 10/16/2024 8:00 AM EST 10/16/2024 11:59 AM EST Stevie Zuñiga MD LAB BLOOD ORDERABLES Final Result [facility] [address] [place] [address], * (ABNORMAL) Basic metabolic panel (10/16/2024 8:00 AM EST) Sodium 139 133 - 145 mmol/L LAB CHEMISTRY METHOD 10/16/2024 2:05 PM [facility] Potassium 3.8 3.5 - 5.5 mmol/L LAB CHEMISTRY METHOD 10/16/2024 2:05 PM [facility] Chloride 108 96 - 110 mmol/L LAB CHEMISTRY METHOD 10/16/2024 2:05 PM [facility] CO2 24 21 - 32 mmol/L LAB CHEMISTRY METHOD 10/16/2024 2:05 PM [facility] Anion Gap 7 3 - 11 LAB CHEMISTRY METHOD 10/16/2024 2:05 PM [facility] Glucose 122(H) 70 - 100 mg/dL LAB CHEMISTRY METHOD 10/16/2024 2:05 PM [facility] BUN 18 5 - 25 mg/dL LAB CHEMISTRY METHOD 10/16/2024 2:05 PM [facility] Creatinine 0.81 0.50 - 1.10 mg/dL LAB CHEMISTRY METHOD 10/16/2024 2:05 PM [facility] eGFR 77 >=60 mL/min/1. 73m2 LAB CHEMISTRY METHOD 10/16/2024 2:05 PM [facility] Comment:Calculation based on the Chronic Kidney Disease Epidemiology Collaboration (CKD-EPI) equation refit without adjustment for race. BUN/Creatinine Ratio 22.2 LAB CHEMISTRY METHOD 10/16/2024 2:05 PM [facility] Calcium 8.8 8.5 - 10.5 mg/dL LAB CHEMISTRY METHOD 10/16/2024 2:05 PM [facility] Blood Venous blood specimen / Unknown Venipuncture / Unknown 10/16/2024 8:00 AM EST 10/16/2024 11:59 AM EST Stevie Zuñiga MD LAB BLOOD ORDERABLES Final Result [facility] [address] [place] [address], * (ABNORMAL) Complete blood count (10/16/2024 8:00 AM EST) WBC 7.5 4.8 - 10.8 K/mcL LAB HEMETOLOGY METHOD 10/16/2024 1:46 PM [facility] RBC 2.50(L) 3.80 - 4.80 M/mcL LAB HEMETOLOGY METHOD 10/16/2024 1:46 PM [facility] Hemoglobin 7.5(L) 11.5 - 16.0 g/dL LAB HEMETOLOGY METHOD 10/16/2024 1:46 PM [facility] Hematocrit 25.6(L) 35.0 - 47.0 % LAB HEMETOLOGY METHOD 10/16/2024 1:46 PM [facility] MCV 101.2(H) 79.0 - 98.0 FL LAB HEMETOLOGY METHOD 10/16/2024 1:46 PM [facility] MCH 29.6 27.0 - 32.0 pcg LAB HEMETOLOGY METHOD 10/16/2024 1:46 PM [facility] MCHC 29.3(L) 32.0 - 37.0 g/dL LAB HEMETOLOGY METHOD 10/16/2024 1:46 PM EST [facility] RDW 21.8(H) 11.0 - 15.0 % LAB HEMETOLOGY METHOD 10/16/2024 1:46 PM EST [facility] Platelets 218 130 - 400 K/mcL LAB HEMETOLOGY METHOD 10/16/2024 1:46 PM EST [facility] MPV 10.2 7.0 - 11.0 FL LAB HEMETOLOGY METHOD 10/16/2024 1:46 PM EST [facility] NRBC 0.0 <1.0 % LAB HEMETOLOGY METHOD 10/16/2024 1:46 PM EST [facility] NRBC Absolute 0.00 <0.10 K/mcL LAB HEMETOLOGY METHOD 10/16/2024 1:46 PM EST [facility] Blood Venous blood specimen / Unknown Venipuncture / Unknown 10/16/2024 8:00 AM EST 10/16/2024 11:59 AM EST Stevie Zuñiga MD LAB BLOOD ORDERABLES Final Result [facility] [address] [place] [address], documented in this encounter Visit Diagnoses 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 Long-term (current) use of 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 Anemia, unspecified Essential (primary) hypertension Unspecified essential hypertension Chronic kidney disease, unspecified documented in this encounter Additional Health Concerns Infection Onset Date Last Indicated Resolved Time Influenza 10/25/2024 10/25/2024 11/18/2024 7:04 PM EST Respiratory Rule-Out 10/26/2024 10/25/2024 025 10:36 PM EST documented as of this encounter Care Teams Math And Science Division Chair Relationship Specialty Start Date End Date Mary Ann Hickman MD 4 [place] [address] PCP - General Internal Medicine 11/21/24 documented as of this encounter
--- OUTSIDE RECORDS SUMMARY | 2025-07-04 20:34 | XMS_ITS | Encounter Summary ---
Author Organization [facility] Address [address] [place] [address] Care Team Providers Care Financial Controller Name Role Phone Mary Ann Hickman MD Primary Care Provider [phone] Encounter Details Date Type Department Care Team (Late Contact Info) Description 11/02/2024 Lab Requisition [facility] - Main Lab 299 [facility] [place] [phone] Stevie Zuñiga MD [address] [place] [address] Unspecified atrial fibrillation (CMS/HCC V24, CMS/HCC V28) [...] 2:45 PM EDT Clinical Support [facility]in Clinic [address] [address] 07/18/2025 11:00 AM EST Office Visit Orthopedic Surgery - [place] [address] [phone] Rebel Acharya, DPM 175 [facility] [address] [place] [phone] 09/10/2025 3:15 PM EST Office Visit Urogynecology [address] [phone] Stefanie Alvarado MD [address] [place] [address] [address] [place] [address] 09/18/2025 11:30 AM EST Office Visit [facility] - [address] [phone] Mary Ann Hickman MD 4 [place], [place] documented as of this encounter Procedures Procedure Name Priority Date/Time Associated Diagnosis Comments PROTHROMBIN TIME WITH INR Routine 11/02/2024 6:14 AM EST Unspecified atrial fibrillation (CMS/HCC) documented in this encounter Results * (ABNORMAL) Prothrombin time with INR (11/02/2024 6:14 AM EST) Protime 23.1(H) 10.6 - 13.9 sec LAB COAGULATION METHOD 11/02/2024 10:36 AM EST [facility] INR 1.9 LAB COAGULATION METHOD 11/02/2024 10:36 AM EST [facility] Blood Venous blood specimen / Unknown Venipuncture / Unknown 11/02/2024 6:14 AM EST 11/02/2024 9:52 AM EST us Stevie Zuñiga MD LAB BLOOD ORDERABLES Final Result [facility] [address] [place] [address], documented in this encounter Visit Diagnoses Diagnosis Unspecified atrial fibrillation ([facility] V24, [facility] V28) documented in this encounter Additional Health Concerns Infection Onset Date Last Indicated Resolved Time Influenza 10/25/2024 10/25/2024 11/18/2024 7:04 PM EST documented as of this encounter Care Teams Financial Controller Relationship Specialty Start Date End Date Mary Ann Hickman MD 4 [place] [address] PCP - General Internal Medicine 08/03/24 documented as of this encounter
--- OUTSIDE RECORDS SUMMARY | 2025-07-04 20:34 | XMS_ITS | Encounter Summary ---
Author Organization [facility] Address [address] [place] [address] Care Team Providers Care Medical Billing Coder Name Role Phone Mary Ann Hickman MD Primary Care Provider Encounter Details Date Type Department Care Team (Late Contact Info) Description 10/24/2024 Lab Requisition [facility] - Main Lab 299 [facility] [place] [phone] Stevie Zuñiga MD [address] [place] [address] Unspecified atrial fibrillation (CMS/HCC V24, CMS/HCC V28) [...] 2:45 PM EDT Clinical Support [facility] [address] [phone] 07/18/2025 11:00 AM EST Office Visit Orthopedic Surgery - [place] [address] [phone] Rebel Acharya, DPM 175 [facility] [address] [place] [phone] 09/10/2025 3:15 PM EST Office Visit Urogynecology [address] [phone] Stefanie Alvarado MD [address] [place] [address] [address] [place] [address] 09/18/2025 11:30 AM EST Office Visit [facility] - [address] [phone] Mary Ann Hickman MD 4 [place], [place] documented as of this encounter Procedures Procedure Name Priority Date/Time Associated Diagnosis Comments PROTHROMBIN TIME WITH INR Routine 10/25/2024 5:57 AM EST Unspecified atrial fibrillation (CMS/HCC) documented in this encounter Results * (ABNORMAL) Prothrombin time with INR (10/25/2024 5:57 AM EST) Protime 40.3(H) 10.6 - 13.9 sec LAB COAGULATION METHOD 10/25/2024 10:56 AM EST [facility] INR 3.3 LAB COAGULATION METHOD 10/25/2024 10:56 AM EST [facility] Blood Venous blood specimen / Unknown Venipuncture / Unknown 10/25/2024 5:57 AM EST 10/25/2024 10:29 AM EST us Stevie Zuñiga MD LAB BLOOD ORDERABLES Final Result [facility] [address] [place] [address], documented in this encounter Visit Diagnoses Diagnosis Unspecified atrial fibrillation ([facility] V24, [facility] V28) documented in this encounter Additional Health Concerns Infection Onset Date Last Indicated Resolved Time Influenza 10/25/2024 10/25/2024 11/18/2024 7:04 PM EST Respiratory Rule-Out 10/26/2024 10/25/2024 025 10:36 PM EST documented as of this encounter Care Teams Medical Billing Coder Relationship Specialty Start Date End Date Mary Ann Hickman MD [address] [place] [phone] PCP - General Internal Medicine 08/03/24 documented as of this encounter
--- OUTSIDE RECORDS SUMMARY | 2025-07-04 20:34 | XMS_ITS | Encounter Summary ---
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 Anemia, unspecified Essential (primary) hypertension BASIC METABOLIC PANEL Routine 10/09/2024 7:50 AM EST Chronic kidney disease, 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 Anemia, unspecified Essential (primary) hypertension documented in this encounter Results * Basic metabolic panel (10/09/2024 7:50 AM EST) Sodium 142 133 - 145 mmol/L LAB CHEMISTRY METHOD 10/09/2024 2:57 PM EST [facility] Potassium 4.4 3.5 - 5.5 mmol/L LAB CHEMISTRY METHOD 10/09/2024 2:57 PM EST [facility] Chloride 108 96 - 110 mmol/L LAB CHEMISTRY METHOD 10/09/2024 2:57 PM [facility] CO2 27 21 - 32 mmol/L LAB CHEMISTRY METHOD 10/09/2024 2:57 PM [facility] Anion Gap 7 3 - 11 LAB CHEMISTRY METHOD 10/09/2024 2:57 PM [facility] Glucose 72 70 - 100 mg/dL LAB CHEMISTRY METHOD 10/09/2024 2:57 PM [facility] BUN 15 5 - 25 mg/dL LAB CHEMISTRY METHOD 10/09/2024 2:57 PM [facility] Creatinine 0.84 0.50 - 1.10 mg/dL LAB CHEMISTRY METHOD 10/09/2024 2:57 PM [facility] eGFR 74 >=60 mL/min/1. 73m2 LAB CHEMISTRY METHOD 10/09/2024 2:57 PM [facility] Comment:Calculation based on the Chronic Kidney Disease Epidemiology Collaboration (CKD-EPI) equation refit without adjustment for race. BUN/Creatinine Ratio 17.9 LAB CHEMISTRY METHOD 10/09/2024 2:57 PM [facility] Calcium 8.8 8.5 - 10.5 mg/dL LAB CHEMISTRY METHOD 10/09/2024 2:57 PM [facility] Blood Venous blood specimen / Unknown Venipuncture / Unknown 10/09/2024 7:50 AM EST 10/09/2024 10:44 AM EST us Stevie Zuñiga MD LAB BLOOD ORDERABLES Final Result [facility] [address] [place] [address], * Prothrombin time with INR (10/09/2024 7:50 AM EST) Protime 13.5 10.6 - 13.9 sec LAB COAGULATION METHOD 10/09/2024 12:18 PM EST [facility] INR 1.1 LAB COAGULATION METHOD 10/09/2024 12:18 PM [facility] Blood Venous blood specimen / Unknown Venipuncture / Unknown 10/09/2024 7:50 AM EST 10/09/2024 10:44 AM EST Stevie Zuñiga MD LAB BLOOD ORDERABLES Final Result [facility] [address] [place] [address], [place] [phone] * (ABNORMAL) Complete blood count (10/09/2024 7:50 AM EST) WBC 7.6 4.8 - 10.8 K/mcL LAB HEMETOLOGY METHOD 10/09/2024 1:49 PM [facility] RBC 2.80(L) 3.80 - 4.80 M/mcL LAB HEMETOLOGY METHOD 10/09/2024 1:49 PM [facility] Hemoglobin 8.2(L) 11.5 - 16.0 g/dL LAB HEMETOLOGY METHOD 10/09/2024 1:49 PM [facility] Hematocrit 27.2(L) 35.0 - 47.0 % LAB HEMETOLOGY METHOD 10/09/2024 1:49 PM [facility] MCV 97.8 79.0 - 98.0 FL LAB HEMETOLOGY METHOD 10/09/2024 1:49 PM [facility] MCH 29.5 27.0 - 32.0 pcg LAB HEMETOLOGY METHOD 10/09/2024 1:49 PM [facility] MCHC 30.1(L) 32.0 - 37.0 g/dL LAB HEMETOLOGY METHOD 10/09/2024 1:49 PM [facility] RDW 21.6(H) 11.0 - 15.0 % LAB HEMETOLOGY METHOD 10/09/2024 1:49 PM EST [facility] Platelets 239 130 - 400 K/mcL LAB HEMETOLOGY METHOD 10/09/2024 1:49 PM EST [facility] MPV 9.5 7.0 - 11.0 FL LAB HEMETOLOGY METHOD 10/09/2024 1:49 PM EST [facility] NRBC 0.0 <1.0 % LAB HEMETOLOGY METHOD 10/09/2024 1:49 PM EST [facility] NRBC Absolute 0.00 <0.10 K/mcL LAB HEMETOLOGY METHOD 10/09/2024 1:49 PM EST [facility] Blood Venous blood specimen / Unknown Venipuncture / Unknown 10/09/2024 7:50 AM EST 10/09/2024 10:44 AM EST us Stevie Zuñiga MD LAB BLOOD ORDERABLES Final Result [facility] [address] [place] [address], documented in this encounter Visit Diagnoses Diagnosis Chronic kidney disease, unspecified MCC (current) use of 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 Long-term (current) use of 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 Anemia, unspecified Essential (primary) hypertension Unspecified essential hypertension documented in this encounter Additional Health Concerns Infection Onset Date Last Indicated Resolved Time Influenza 10/25/2024 10/25/2024 11/18/2024 7:04 PM EST Respiratory Rule-Out 10/26/2024 10/25/2024 025 10:36 PM EST documented as of this encounter Care Teams Counter Control Operator Relationship Specialty Start Date End Date Mary Ann Hickman MD [address] [place] [phone] PCP - General Internal Medicine 08/03/24 documented as of this encounter
--- OUTSIDE RECORDS SUMMARY | 2025-07-04 20:35 | XMS_ITS | Encounter Summary ---
Author Organization 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; Chronic kidney disease, unspecified; Unspecified atrial fibrillation (CMS/HCC V24, CMS/HCC V28); Essential (primary) hypertension; Anemia, unspecified Social History Tobacco Use Types [...] 07/05/2025 2:45 PM EDT Clinical Support Coumadin [address] [phone] 07/18/2025 11:00 AM EST Office Visit Orthopedic Surgery - [place] 250 175 [facility] 250 [place] [phone] Rebel Acharya, DPM [address] [phone] 09/10/2025 3:15 PM EST Office Visit Urogynecology [address] [phone] Stefanie Alvarado MD [address] [place] [address] [address] [place] [address] 09/18/2025 11:30 AM EST Office Visit Adult Medicine [facility] - [address] [phone] Mary Ann Hickman MD [address] [place] [address] documented as of this encounter Procedures Procedure Name Priority Date/Time Associated Diagnosis Comments PROTHROMBIN TIME WITH INR Routine 11/27/2024 8:18 AM EDT alf (current) use of 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 Chronic kidney disease, unspecified Unspecified atrial fibrillation (CMS/HCC) Essential (primary) hypertension Anemia, unspecified COMPLETE BLOOD COUNT Routine 11/27/2024 8:18 AM EDT alf (current) use of 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 Chronic kidney disease, unspecified Unspecified atrial fibrillation (CMS/HCC) Essential (primary) hypertension Anemia, unspecified BASIC METABOLIC PANEL Routine 11/27/2024 8:18 AM EDT 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 Chronic kidney disease, unspecified Unspecified atrial fibrillation (CMS/HCC) Essential (primary) hypertension Anemia, unspecified documented in this encounter Results * Basic metabolic panel (11/27/2024 8:18 AM EDT) [facility] Signature Sodium 141 133 - 145 mmol/L LAB CHEMISTRY METHOD 11/27/2024 10:38 AM [facility] Potassium 3.6 3.5 - 5.5 mmol/L LAB CHEMISTRY METHOD 11/27/2024 10:38 AM [facility] Chloride 109 96 - 110 mmol/L LAB CHEMISTRY METHOD 11/27/2024 10:38 AM [facility] CO2 26 21 - 32 mmol/L LAB CHEMISTRY METHOD 11/27/2024 10:38 AM [facility] LAB Anion Gap 6 3 - 11 LAB CHEMISTRY METHOD 11/27/2024 10:38 AM [facility] LAB Glucose 85 70 - 100 mg/dL LAB CHEMISTRY METHOD 11/27/2024 10:38 AM [facility] BUN 10 5 - 25 mg/dL LAB CHEMISTRY METHOD 11/27/2024 10:38 AM [facility] Creatinine 0.98 0.50 - 1.10 mg/dL LAB CHEMISTRY METHOD 11/27/2024 10:38 AM [facility] LAB eGFR 61 >=60 mL/min/1. 73m2 LAB CHEMISTRY METHOD 11/27/2024 10:38 AM [facility] LAB Comment:Calculation based on the Chronic Kidney Disease Epidemiology Collaboration (CKD-EPI) equation refit without adjustment for race. BUN/Creatinine Ratio 10.2 LAB CHEMISTRY METHOD 11/27/2024 10:38 AM [facility] Calcium 9.0 8.5 - 10.5 mg/dL LAB CHEMISTRY METHOD 11/27/2024 10:38 AM [facility] LAB Blood Venous blood specimen / Unknown Venipuncture / Unknown 11/27/2024 8:18 AM EDT 11/27/2024 9:47 AM EDT us Stevie Zuñiga MD LAB BLOOD ORDERABLES Final Result [facility] [address] [place], [place] [address] [phone] * (ABNORMAL) Complete blood count (11/27/2024 8:18 AM EDT) [facility] Signature WBC 4.8 4.8 - 10.8 K/mcL LAB HEMETOLOGY METHOD 11/27/2024 10:04 AM [facility] RBC 3.70(L) 3.80 - 4.80 M/mcL LAB HEMETOLOGY METHOD 11/27/2024 10:04 AM [facility] Hemoglobin 10.7(L) 11.5 - 16.0 g/dL LAB HEMETOLOGY METHOD 11/27/2024 10:04 AM [facility] LAB Hematocrit 35.5 35.0 - 47.0 % LAB HEMETOLOGY METHOD 11/27/2024 10:04 AM [facility] LAB MCV 96.2 79.0 - 98.0 FL LAB HEMETOLOGY METHOD 11/27/2024 10:04 AM [facility] LAB MCH 29.0 27.0 - 32.0 pcg LAB HEMETOLOGY METHOD 11/27/2024 10:04 AM [facility] LAB MCHC 30.1(L) 32.0 - 37.0 g/dL LAB HEMETOLOGY METHOD 11/27/2024 10:04 AM [facility] LAB RDW 16.4(H) 11.0 - 15.0 % LAB HEMETOLOGY METHOD 11/27/2024 10:04 AM [facility] LAB Platelets 163 130 - 400 K/mcL LAB HEMETOLOGY METHOD 11/27/2024 10:04 AM [facility] MPV 10.3 7.0 - 11.0 FL LAB HEMETOLOGY METHOD 11/27/2024 10:04 AM [facility] LAB NRBC 0.0 <1.0 % LAB HEMETOLOGY METHOD 11/27/2024 10:04 AM EDT [facility] LAB NRBC Absolute 0.00 <0.10 K/mcL LAB HEMETOLOGY METHOD 11/27/2024 10:04 AM EDT [facility] LAB Blood Venous blood specimen / Unknown Venipuncture / Unknown 11/27/2024 8:18 AM EDT 11/27/2024 9:47 AM EDT Stevie Zuñiga MD LAB BLOOD ORDERABLES Final Result [facility] [address] [place] [address], [place] [phone] * (ABNORMAL) Prothrombin time with INR (11/27/2024 8:18 AM EDT) Protime 30.5(H) 10.6 - 13.9 sec LAB COAGULATION METHOD 11/27/2024 10:10 AM EDT [facility] INR 2.5 LAB COAGULATION METHOD 11/27/2024 10:10 AM EDT [facility] Blood Venous blood specimen / Unknown Venipuncture / Unknown 11/27/2024 8:18 AM EDT 11/27/2024 9:47 AM EDT Stevie Zuñiga MD LAB BLOOD ORDERABLES Final Result Performing Organization Address City/[facility]/ZIP Co de Phone Number [facility] [address] [place] [address], [place] [phone] documented in this encounter 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
--- OUTSIDE RECORDS SUMMARY | 2025-07-04 20:35 | XMS_ITS | Encounter Summary ---
Author Organization [facility] Address [address] [place] [address] Care Team Providers Care Percussion Instructor Name Role Phone Mary Ann Hickman MD Primary Care Provider [phone] Encounter Details Date Type Department Care Team (Late Contact Info) Description 02/01/[address] [facility] - Main Lab 299 [facility] [place] [phone] Stevie Zuñiga MD [address] [place] [address] Unspecified atrial fibrillation (CMS/HCC V24, CMS/HCC V28) [...] 07/05/2025 2:45 PM EDT Clinical Support Coumadin [address] [phone] 07/18/2025 11:00 AM EST Office Visit Orthopedic Surgery - [place] [address] [phone] Rebel Acharya, DPM 175 [facility] [address] [place] [phone] 09/10/2025 3:15 PM EST Office Visit Urogynecology [address] [phone] Stefanie Alvarado MD [address] [place] [address] [address] [place] [address] 09/18/2025 11:30 AM EST Office Visit Adult Medicine [facility] [address] [phone] Mary Ann Hickman MD 444 [place], [place] documented as of this encounter Procedures Procedure Name Priority Date/Time Associated Diagnosis Comments PROTHROMBIN TIME WITH INR Routine 02/02/2025 8:59 AM EDT Unspecified atrial fibrillation ([facility]/HCC V24, CMS/HCC V28) documented in this encounter Results * (ABNORMAL) Prothrombin time with INR (02/02/2025 8:59 AM EDT) Protime 29.1(H) 10.6 - 13.9 sec LAB COAGULATION METHOD 02/02/2025 12:13 PM EDT [facility] INR 2.4 LAB COAGULATION METHOD 02/02/2025 12:13 PM EDT [facility] Blood Venous blood specimen / Unknown Venipuncture / Unknown 02/02/2025 8:59 AM EDT 02/02/2025 10:58 AM EDT us Stevie Zuñiga MD LAB BLOOD ORDERABLES Final Result [facility]) [facility] 299 [place], [place] [address] [phone] documented in this encounter Visit Diagnoses Diagnosis Unspecified atrial fibrillation (CMS/HCC V24, CMS/HCC V28) documented in this encounter Care Teams Percussion Instructor Relationship Specialty Start Date End Date Mary Ann Hickman MD [address] [place] [phone] PCP - General Internal Medicine 08/03/24 documented as of this encounter
--- OUTSIDE RECORDS SUMMARY | 2025-07-04 20:35 | XMS_ITS | Encounter Summary ---
Author Organization [facility] Address [address] [place] [address] Care Team Providers Care Horticulturalist Name Role Phone Mary Ann Hickman MD Primary Care Provider [phone] Encounter Details Date Type Department Care Team (Late Contact Info) Description 02/05/2025 Lab Requisition [facility] - Main Lab 299 [facility] [place] [address] Stevie Zuñiga MD [address] [place] [address] Essential (primary) hypertension; Unspecified atrial fibrillation (CMS/HCC V24, CMS/HCC V28) [...] 07/05/2025 2:45 PM EDT Clinical Support Coumadin [address] [phone] 07/18/2025 11:00 AM EST Office Visit Orthopedic Surgery - [place] [address] [phone] Rebel Acharya, DPM 175 [facility] [address] [place] [address] 09/10/2025 3:15 PM EST Office Visit Urogynecology [address] [phone] Stefanie Alvarado MD 580 [facility] [address] [place] [address] 09/18/2025 11:30 AM EST Office Visit Adult Medicine [facility] - [address] [phone] Mary Ann Hickman MD 444 [place], [place] documented as of this encounter Procedures Procedure Name Priority Date/Time Associated Diagnosis Comments PROTHROMBIN TIME WITH INR Routine 02/06/2025 8:25 AM EDT Essential (primary) hypertension Unspecified atrial fibrillation (CMS/HCC V24, CMS/HCC V28) COMPLETE BLOOD COUNT Routine 02/06/2025 8:25 AM EDT Essential (primary) hypertension Unspecified atrial fibrillation (CMS/HCC V24, CMS/HCC V28) BASIC METABOLIC PANEL Routine 02/06/2025 8:25 AM EDT Essential (primary) hypertension Unspecified atrial fibrillation (CMS/HCC V24, CMS/HCC V28) documented in this encounter Results * (ABNORMAL) Prothrombin time with INR (02/06/2025 8:25 AM EDT) Protime 38.6(H) 10.6 - 13.9 sec LAB COAGULATION METHOD 02/06/2025 11:59 AM EDT [facility] INR 3.1 LAB COAGULATION METHOD 02/06/2025 11:59 AM T [facility] LAB Blood Venous blood specimen / Unknown 02/06/2025 8:25 AM EDT 02/06/2025 11:33 AM EDT Stevie Zuñiga MD LAB BLOOD ORDERABLES Final Result [facility] [address] [place] [address], * (ABNORMAL) Complete blood count (02/06/2025 8:25 AM EDT) WBC 5.2 4.8 - 10.8 K/mcL LAB HEMETOLOGY METHOD 02/06[facility]2025 12[facility] RBC 3.60(L) 3.80 - 4.80 M/mcL LAB HEMETOLOGY METHOD 02/06/2025 12:53 PM EDT [facility] Hemoglobin 10.8(L) 11.5 - 16.0 g/dL LAB HEMETOLOGY METHOD 02/06/2025 12:[facility] Hematocrit 34.8(L) 35.0 - 47.0 % LAB HEMETOLOGY METHOD 02/06/2025 12:53 PM [facility] MCV 97.2 79.0 - 98.0 FL LAB HEMETOLOGY METHOD 02/06/2025 12:53 [facility] MCH 30.2 27.0 - 32.0 pcg LAB HEMETOLOGY METHOD 02/06/2025 12:53 PM [facility] LAB MCHC 31.0(L) 32.0 - 37.0 g/dL LAB HEMETOLOGY METHOD 02/06/2025 12:53 PM [facility] RDW 15.3(H) 11.0 - 15.0 % LAB HEMETOLOGY METHOD 02/06/2025 12:53 PM EDT [facility] LAB Platelets 163 130 - 400 K/mcL LAB HEMETOLOGY METHOD 02/06/2025 12:53 PM EDT [facility] MPV 10.5 7.0 - 11.0 FL LAB HEMETOLOGY METHOD 02/06/2025 12:53 PM EDT [facility] LAB NRBC 0.0 <1.0 % LAB HEMETOLOGY METHOD 02/06/2025 12:53 PM EDT [facility] NRBC Absolute 0.00 <0.10 K/mcL LAB HEMETOLOGY METHOD 02/06/2025 12:53 PM EDT [facility] LAB Blood Venous blood specimen / Unknown Venipuncture / Unknown 02/06/2025 8:25 AM EDT 02/06/2025 11:11 AM EDT Stevie Zuñiga MD LAB BLOOD ORDERABLES Final Result [facility] [address] [place] [address], [place] [phone] * (ABNORMAL) Basic metabolic panel (02/06/2025 8:25 AM EDT) Sodium 145 133 - 145 mmol/L LAB CHEMISTRY METHOD 02/06/2025 2:27 PM [facility] Potassium 3.8 3.5 - 5.5 mmol/L LAB CHEMISTRY METHOD 02/06/2025 2:27 PM T [facility] Chloride 116(H) 96 - 110 mmol/L LAB CHEMISTRY METHOD 02/06/2025 2:27 PM T [facility] CO2 23 21 - 32 mmol/L LAB CHEMISTRY METHOD 02/06/2025 2:27 PM T [facility] LAB Anion Gap 6 3 - 11 LAB CHEMISTRY METHOD 02/06/2025 2:27 PM EDT [facility] Glucose 114(H) 70 - 100 mg/dL LAB CHEMISTRY METHOD 02/06/2025 2:27 PM EDT [facility] BUN 20 5 - 25 mg/dL LAB CHEMISTRY METHOD 02/06/2025 2:27 PM EDT [facility] Creatinine 1.03 0.50 - 1.10 mg/dL LAB CHEMISTRY METHOD 02/06/2025 2:27 PM EDT [facility] LAB eGFR 58(L) >=60 mL/min/1. 73m2 LAB CHEMISTRY METHOD 02/06/2025 2:27 PM EDT [facility] LAB Comment:Calculation based on the Chronic Kidney Disease Epidemiology Collaboration (CKD-EPI) equation refit without adjustment for race. BUN/Creatinine Ratio 19.4 LAB CHEMISTRY METHOD 02/06/2025 2:27 PM EDT [facility] Calcium 8.5 8.5 - 10.5 mg/dL LAB CHEMISTRY METHOD 02/06/2025 2:27 PM EDT [facility] LAB Blood Venous blood specimen / Unknown Venipuncture / Unknown 02/06/2025 8:25 AM EDT 02/06/2025 11:11 AM EDT Stevie Zuñiga MD LAB BLOOD ORDERABLES Final Result [facility] [address] [place] [address], documented in this encounter Visit Diagnoses Diagnosis Essential (primary) hypertension Unspecified essential hypertension Unspecified atrial fibrillation (CMS/HCC V24, CMS/HCC V28) documented in this encounter Care Teams Horticulturalist Relationship Specialty Start Date End Date Mary Ann Hickman MD [address] [place] [address] PCP - General Internal Medicine 08/03/24 documented as of this encounter
--- OUTSIDE RECORDS SUMMARY | 2025-07-04 20:35 | XMS_ITS | Encounter Summary ---
Author Organization [facility] Address [address] [place] [address] Care Team Providers Care Facility Manager Name Role Phone Mary Ann Hickman MD Primary Care Provider [phone] Encounter Details Date Type Department Care Team (Late Contact Info) Description 11/10/2024 Lab Requisition [facility] - Main Lab 299 [facility] [place] [address] Stevie Zuñiga MD [address] [place] [address] Chronic kidney disease, unspecified; Essential (primary) hypertension; Anemia, unspecified; 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 Social History Tobacco [...] 07/05/2025 2:45 PM EDT Clinical Support Coumadin [address] [phone] 07/18/2025 11:00 AM EST Office Visit Orthopedic Surgery - [place] [address] [phone] Rebel Acharya, DPM 175 [facility] [address] [place] [address] 09/10/2025 3:15 PM EST Office Visit Urogynecology [address] [phone] Stefanie Alvarado MD 580 [facility] [address] [place] [address] 09/18/2025 11:30 AM EST Office Visit Adult Medicine [facility] - [address] [phone] Mary Ann Hickman MD 444 [place], [place] documented as of this encounter Procedures Procedure Name Priority Date/Time Associated Diagnosis Comments PROTHROMBIN TIME WITH INR Routine 11/13/2024 10:07 AM EST Chronic kidney disease, unspecified Essential (primary) hypertension Anemia, unspecified 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 COMPLETE BLOOD COUNT Routine 11/13/2024 10:07 AM EST Chronic kidney disease, unspecified Essential (primary) hypertension Anemia, unspecified 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 BASIC METABOLIC PANEL Routine 11/13/2024 10:07 AM EST Chronic kidney disease, unspecified Essential (primary) hypertension Anemia, unspecified 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 documented in this encounter Results * (ABNORMAL) Prothrombin time with INR (11/13/2024 10:07 AM EST) Protime 33.5(H) 10.6 - 13.9 sec LAB COAGULATION METHOD 11/13/2024 11:[address] [facility] INR 2.7 LAB COAGULATION METHOD 11/13/2024 11:41 AM [facility] Blood Venous blood specimen / Unknown Venipuncture / Unknown 11/13/2024 10:07 AM EST 11/13/2024 11:26 AM EST Stevie Zuñiga MD LAB BLOOD ORDERABLES Final Result [facility] [address] [place] [address], * Basic metabolic panel (11/13/2024 10:07 AM EST) Sodium 141 133 - 145 mmol/L LAB CHEMISTRY METHOD 11/13/2024 12:05 PM [facility] Potassium 3.8 3.5 - 5.5 mmol/L LAB CHEMISTRY METHOD 11/13/2024 12:05 PM [facility] Chloride 109 96 - 110 mmol/L LAB CHEMISTRY METHOD 11/13/2024 12:05 PM [facility] CO2 27 21 - 32 mmol/L LAB CHEMISTRY METHOD 11/13/2024 12:05 PM [facility] Anion Gap 5 3 - 11 LAB CHEMISTRY METHOD 11/13/2024 12:05 PM [facility] Glucose 72 70 - 100 mg/dL LAB CHEMISTRY METHOD 11/13/2024 12:05 PM [facility] BUN 12 5 - 25 mg/dL LAB CHEMISTRY METHOD 11/13/2024 12:05 PM [facility] Creatinine 0.89 0.50 - 1.10 mg/dL LAB CHEMISTRY METHOD 11/13/2024 12:05 PM [facility] LAB eGFR 69 >=60 mL/min/1. 73m2 LAB CHEMISTRY METHOD 11/13/2024 12:05 PM [facility] Comment:Calculation based on the Chronic Kidney Disease Epidemiology Collaboration (CKD-EPI) equation refit without adjustment for race. BUN/Creatinine Ratio 13.5 LAB CHEMISTRY METHOD 11/13/2024 12:05 PM [facility] Calcium 9.0 8.5 - 10.5 mg/dL LAB CHEMISTRY METHOD 11/13/2024 12:05 PM [facility] Blood Venous blood specimen / Unknown Venipuncture / Unknown 11/13/2024 10:07 AM EST 11/13/2024 11:26 AM EST us Stevie Zuñiga MD LAB BLOOD ORDERABLES Final Result [facility] [address] [place] [address], * (ABNORMAL) Complete blood count (11/13/2024 10:07 AM EST) WBC 5.3 4.8 - 10.8 K/mcL LAB HEMETOLOGY METHOD 11/13/2024 1:37 PM [facility] RBC 3.10(L) 3.80 - 4.80 M/mcL LAB HEMETOLOGY METHOD 11/13/2024 1:37 PM [facility] Hemoglobin 9.3(L) 11.5 - 16.0 g/dL LAB HEMETOLOGY METHOD 11/13/2024 1:37 PM [facility] Hematocrit 31.5(L) 35.0 - 47.0 % LAB HEMETOLOGY METHOD 11/13/2024 1:37 PM [facility] MCV 100.6(H) 79.0 - 98.0 FL LAB HEMETOLOGY METHOD 11/13/2024 1:37 PM [facility] MCH 29.7 27.0 - 32.0 pcg LAB HEMETOLOGY METHOD 11/13/2024 1:37 PM [facility] MCHC 29.5(L) 32.0 - 37.0 g/dL LAB HEMETOLOGY METHOD 11/13/2024 1:37 PM [facility] RDW 18.9(H) 11.0 - 15.0 % LAB HEMETOLOGY METHOD 11/13/2024 1:[address] [facility] Platelets 167 130 - 400 K/mcL LAB HEMETOLOGY METHOD 11/13/2024 1:[address] [facility] MPV 9.7 7.0 - 11.0 FL LAB HEMETOLOGY METHOD 11/13/2024 1:[address] [facility] NRBC 0.0 <1.0 % LAB HEMETOLOGY METHOD 11/13/2024 1:[address] [facility] NRBC Absolute 0.00 <0.10 K/mcL LAB HEMETOLOGY METHOD 11/13/2024 1:[address] [facility] Blood Venous blood specimen / Unknown Venipuncture / Unknown 11/13/2024 10:07 AM EST 11/13/2024 11:26 AM EST us Stevie Zuñiga MD LAB BLOOD ORDERABLES Final Result [facility] [address] [place] [address], documented in this encounter Visit Diagnoses Diagnosis Chronic kidney disease, unspecified Essential (primary) hypertension Unspecified essential hypertension Anemia, unspecified 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
--- OUTSIDE RECORDS SUMMARY | 2025-07-04 20:35 | XMS_ITS | Encounter Summary ---
Author Organization [facility] Address [address] [place] [address] Care Team Providers Care Service Attendant Name Role Phone Mary Ann Hickman MD Primary Care Provider [phone] Encounter Details Date Type Department Care Team (Late Contact Info) Description 02/14/2025 Lab Requisition [facility] - Main Lab [address] [facility] [place] [phone] Stevie Zuñiga MD [address] [place] [address] Unspecified atrial fibrillation (CMS/HCC V24, CMS/HCC V28) [...] 2:45 PM EDT Clinical Support Coumadin Clinic [address] [phone] 07/18/2025 11:00 AM EST Office Visit Orthopedic Surgery - [place] [address] [phone] Rebel Acharya, DPM 175 [facility] [address] [place] [address] 09/10/2025 3:15 PM EST Office Visit Urogynecology [address] [phone] Stefanie Alvarado MD [address] [place] [address] [address] [place] [address] 09/18/2025 11:30 AM EST Office Visit Adult [facility] [address] [phone] Mary Ann Hickman MD 444 [place], [place] documented as of this encounter Procedures Procedure Name Priority Date/Time Associated Diagnosis Comments PROTHROMBIN TIME WITH INR Routine 02/15/2025 5:30 AM EDT Unspecified atrial fibrillation ([facility]/HCC V24, [facility]/HCC V28) documented in this encounter Results * (ABNORMAL) Prothrombin time with INR (02/15/2025 5:30 AM EDT) Protime 20.8(H) 10.6 - 13.9 sec LAB COAGULATION METHOD 02/15/2025 8:55 AM EDT [facility] INR 1.7 LAB COAGULATION METHOD 02/15/2025 8:55 AM EDT [facility] Blood Venous blood specimen / Unknown Venipuncture / Unknown 02/15/2025 5:30 AM EDT 02/15/2025 8:41 AM EDT us Stevie Zuñiga MD LAB BLOOD ORDERABLES Final Result [facility]) [facility] [address] [place], [place] [address] [phone] documented in this encounter Visit Diagnoses Diagnosis Unspecified atrial fibrillation (CMS/HCC V24, CMS/HCC V28) documented in this encounter Care Teams Service Attendant Relationship Specialty Start Date End Date Mary Ann Hickman MD [address] [place] [phone] PCP - General Internal Medicine 08/03/24 documented as of this encounter
--- OUTSIDE RECORDS SUMMARY | 2025-07-04 20:35 | XMS_ITS | Encounter Summary ---
Author Organization [facility] Address [address] [place] [address] Care Team Providers Care Payroll And Benefits Manager Name Role Phone Mary Ann Hickman MD Primary Care Provider [phone] Encounter Details Date Type Department Care Team (Late Contact Info) Description 11/19/[address] 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 Social History Tobacco [...] 2:45 PM EDT Clinical Support Coumadin [address] [phone] 07/18/2025 11:00 AM EST Office Visit Orthopedic Surgery - [place] [address] [phone] Rebel Acharya, DPM 175 [facility] [address] [place] [address] 09/10/2025 3:15 PM EST Office Visit Urogynecology - [address] [phone] Stefanie Alvarado MD 580 [facility] [address] [place] [address] 09/18/2025 11:30 AM EST Office Visit Adult [facility] - [address] [phone] Mary Ann Hickman MD [address] [place], [place] documented as of this encounter Procedures Procedure Name Priority Date/Time Associated Diagnosis Comments PROTHROMBIN TIME WITH INR Routine 11/20/2024 7:58 AM EDT Chronic kidney disease, unspecified Essential (primary) hypertension Anemia, unspecified 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 COMPLETE BLOOD COUNT Routine 11/20/2024 7:58 AM EDT Chronic kidney disease, unspecified Essential (primary) hypertension Anemia, unspecified 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 BASIC METABOLIC PANEL Routine 11/20/2024 7:58 AM EDT Chronic kidney disease, unspecified Essential (primary) hypertension Anemia, unspecified shelter (current) use of 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 documented in this encounter Results * (ABNORMAL) Prothrombin time with INR (11/20/2024 7:58 AM EDT) Protime 30.7(H) 10.6 - 13.9 sec LAB COAGULATION METHOD 11/20/2024 10:53 AM EDT [facility] INR 2.5 LAB COAGULATION METHOD 11/20/2024 10:53 AM [facility] Blood Venous blood specimen / Unknown Venipuncture / Unknown 11/20/2024 7:58 AM EDT 11/20/2024 9:46 AM EDT us Stevie Zuñiga MD LAB BLOOD ORDERABLES Final Result [facility] [address] [place] [address], * (ABNORMAL) Basic metabolic panel (11/20/2024 7:58 AM EDT) Sodium 146(H) 133 - 145 mmol/L LAB CHEMISTRY METHOD 11/20/2024 11:31 AM [facility] Potassium 4.0 3.5 - 5.5 mmol/L LAB CHEMISTRY METHOD 11/20/2024 11:31 AM [facility] Chloride 114(H) 96 - 110 mmol/L LAB CHEMISTRY METHOD 11/20/2024 11:31 AM [facility] CO2 24 21 - 32 mmol/L LAB CHEMISTRY METHOD 11/20/2024 11:31 AM [facility] Anion Gap 8 3 - 11 LAB CHEMISTRY METHOD 11/20/2024 11:31 AM [facility] Glucose 71 70 - 100 mg/dL LAB CHEMISTRY METHOD 11/20/2024 11:31 AM [facility] BUN 11 5 - 25 mg/dL LAB CHEMISTRY METHOD 11/20/2024 11:31 AM [facility] Creatinine 0.97 0.50 - 1.10 mg/dL LAB CHEMISTRY METHOD 11/20/2024 11:31 AM [facility] eGFR 62 >=60 mL/min/1. 73m2 LAB CHEMISTRY METHOD 11/20/2024 11:31 AM [facility] Comment:Calculation based on the Chronic Kidney Disease Epidemiology Collaboration (CKD-EPI) equation refit without adjustment for race. BUN/Creatinine Ratio 11.3 LAB CHEMISTRY METHOD 11/20/2024 11:31 AM EDT [facility] Calcium 8.6 8.5 - 10.5 mg/dL LAB CHEMISTRY METHOD 11/20/2024 11:31 AM EDT [facility] Blood Venous blood specimen / Unknown Venipuncture / Unknown 11/20/2024 7:58 AM EDT 11/20/2024 9:46 AM EDT us Stevie Zuñiga MD LAB BLOOD ORDERABLES Final Result [facility] [address] [place] [address], [place] [phone] * (ABNORMAL) Complete blood count (11/20/2024 7:58 AM EDT) WBC 4.7(L) 4.8 - 10.8 K/mcL LAB HEMETOLOGY METHOD 11/20/2024 10:49 AM [facility] RBC 3.30(L) 3.80 - 4.80 M/mcL LAB HEMETOLOGY METHOD 11/20/2024 10:49 AM [facility] Hemoglobin 9.9(L) 11.5 - 16.0 g/dL LAB HEMETOLOGY METHOD 11/20/2024 10:49 AM [facility] Hematocrit 32.5(L) 35.0 - 47.0 % LAB HEMETOLOGY METHOD 11/20/2024 10:49 AM [facility] MCV 98.5(H) 79.0 - 98.0 FL LAB HEMETOLOGY METHOD 11/20/2024 10:49 AM [facility] MCH 30.0 27.0 - 32.0 pcg LAB HEMETOLOGY METHOD 11/20/2024 10:49 AM [facility] MCHC 30.5(L) 32.0 - 37.0 g/dL LAB HEMETOLOGY METHOD 11/20/2024 10:49 AM EDT [facility] RDW 17.8(H) 11.0 - 15.0 % LAB HEMETOLOGY METHOD 11/20/2024 10:49 AM EDT [facility] Platelets 171 130 - 400 K/mcL LAB HEMETOLOGY METHOD 11/20/2024 10:49 AM EDT [facility] MPV 9.4 7.0 - 11.0 FL LAB HEMETOLOGY METHOD 11/20/2024 10:49 AM EDT [facility] NRBC 0.0 <1.0 % LAB HEMETOLOGY METHOD 11/20/2024 10:49 AM EDT [facility] NRBC Absolute 0.00 <0.10 K/mcL LAB HEMETOLOGY METHOD 11/20/2024 10:49 AM EDT [facility] Blood Venous blood specimen / Unknown Venipuncture / Unknown 11/20/2024 7:58 AM EDT 11/20/2024 9:46 AM EDT Stevie Zuñiga MD LAB BLOOD ORDERABLES Final Result [facility] [address] [place] [address], documented in this encounter Visit Diagnoses Diagnosis Chronic kidney disease, unspecified Essential (primary) hypertension Unspecified essential hypertension Anemia, unspecified shelter (current) use of 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 Long-term (current) use of 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 documented in this encounter Care Teams Payroll And Benefits Manager Relationship Specialty Start Date End Date Mary Ann Hickman MD [address] [place] [address] PCP - General Internal Medicine 08/03/24 documented as of this encounter
--- OUTSIDE RECORDS SUMMARY | 2025-07-04 20:35 | XMS_ITS | Encounter Summary ---
Author Organization [facility] Address [address] [place] [address] Care Team Providers Care Vp Emerging Media Name Role Phone Mary Ann Hickman MD Primary Care Provider [phone] Encounter Details Date Type Department Care Team (Late Contact Info) Description 11/20/2024 Lab Requisition [facility] - Main Lab 299 [facility] [place] [phone] Stevie Zuñiga MD [address] [place] [address] Urinary tract infection, site not specified Social History Tobacco Use Types Packs/Day Years [...] 07/05/2025 2:45 PM EDT Clinical Support Coumadin [address] [phone] 07/18/2025 11:00 AM EST Office Visit Orthopedic Surgery - [place] 250 175 [facility] 250 [place] [phone] Rebel Acharya, DPM 175 [facility] [address] [place] [address] 09/10/2025 3:15 PM EST Office Visit Urogynecology [address] [phone] Stefanie Alvarado MD 580 [facility] [address] [place] [address] 09/18/2025 11:30 AM EST Office Visit Adult Medicine [facility] - [address] [phone] Mary Ann Hickman MD [address] [place] [address] documented as of this encounter Procedures Procedure Name Priority Date/Time Associated Diagnosis Comments URINALYSIS WITH REFLEX MICROSCOPIC Routine 11/19/2024 8:26 AM EDT Urinary tract infection, site not specified URINALYSIS WITH REFLEX MICROSCOPIC Routine 11/19/2024 8:26 AM EDT Urinary tract infection, site not specified CULTURE URINE Routine 11/19/2024 8:26 AM EDT Urinary tract infection, site not specified documented in this encounter Results * (ABNORMAL) Urinalysis with reflex microscopic (11/19/2024 8:26 AM EDT) Specific [place] Urine 1.012 1.003 - 1.030 LAB URINALYSIS - AUTOMATED METHOD 11/20/2024 11:20 AM [facility] pH, Urine 5.5 5.0 - 8.0 pH LAB URINALYSIS - AUTOMATED METHOD 11/20/2024 11:20 AM [facility] Leukocytes, Urine Large(A) Negative LAB URINALYSIS - AUTOMATED METHOD 11/20/2024 11:20 AM [facility] Nitrite, Urine Positive(A) Negative LAB URINALYSIS - AUTOMATED METHOD 11/20/2024 11:20 AM [facility] Protein, Urine Trace <=Trace mg/dL LAB URINALYSIS - AUTOMATED METHOD 11/20/2024 11:20 AM [facility] Glucose, Urine Negative Negative mg/dL LAB URINALYSIS - AUTOMATED METHOD 11/20/2024 11:20 AM [facility] Ketones, Urine Negative Negative mg/dL LAB URINALYSIS - AUTOMATED METHOD 11/20/2024 11:20 AM [facility] Urobilinogen , Urine 0.2 0.2 - 1.0 mg/dL LAB URINALYSIS - AUTOMATED METHOD 11/20/2024 11:20 AM [facility] Bilirubin, Urine Negative Negative LAB URINALYSIS - AUTOMATED METHOD 11/20/2024 11:20 AM [facility] Blood, Urine Small(A) Negative LAB URINALYSIS - AUTOMATED METHOD 11/20/2024 11:20 AM [facility] RBC, Urine 6.3(H) 0 - 4 /HPF LAB URINALYSIS - AUTOMATED METHOD 11/20/2024 11:20 AM [facility] WBC, Urine 385.8(H) 0 - 4 /HPF LAB URINALYSIS - AUTOMATED METHOD 11/20/2024 11:20 AM [facility] Squamous Epithelial, Urine 39 0 - 60 /LPF LAB URINALYSIS - AUTOMATED METHOD 11/20/2024 11:20 AM [facility] Bacteria, Urine Many(A) Negative /HPF LAB URINALYSIS - AUTOMATED METHOD 11/20/2024 11:20 AM [facility] Hyaline Casts, Urine 0.8 0 - 3 /LPF LAB URINALYSIS - AUTOMATED METHOD 11/20/2024 11:20 AM [facility] Urine Urine specimen obtained by clean catch procedure / Unknown 11/19/2024 8:26 AM EDT 11/20/2024 10:37 AM EDT Stevie Zuñiga MD LAB URINE ORDERABLES Final Result [facility] [address] [place] [address], * (ABNORMAL) Culture urine (11/19/2024 8:26 AM EDT) Culture, Urine >100,000 CFU/mL Escherichia coli(A) JOVANNA 11/22/2024 8:27 AM EDT [facility] Urine Urine specimen obtained by clean catch procedure / Unknown 11/19/2024 8:26 AM EDT 11/20/2024 10:37 AM EDT Narrative Organism Antibiotic Method Susceptibility Escherichia coli Amoxicillin/Clavulanate JOVANNA 4 ug/ml: Susceptible Escherichia coli Ampicillin/Sulbactam JOVANNA 16 ug/ml: Intermediate Escherichia coli Piperacillin/Tazobactam JOVANNA <=4 ug/ml: Susceptible Escherichia coli Cefazolin (Urine) JOVANNA 2 ug/ml: Susceptible Escherichia coli Cefoxitin JOVANNA <=4 ug/ml: Susceptible Escherichia coli Ceftazidime JOVANNA <=0.5 ug/ml: Susceptible Escherichia coli Ceftriaxone JOVANNA <=0.25 ug/ml: Susceptible Escherichia coli Cefepime JOVANNA <=0.12 ug/ml: Susceptible Escherichia coli Meropenem JOVANNA <=0.25 ug/ml: Susceptible Escherichia coli Amikacin JOVANNA 2 ug/ml: Susceptible Escherichia coli Gentamicin JOVANNA <=1 ug/ml: Susceptible Escherichia coli Ciprofloxacin JOVANNA <=0.06 ug/ml: Susceptible Escherichia coli Levofloxacin JOVANNA <=0.12 ug/ml: Susceptible Escherichia coli Nitrofurantoin JOVANNA <=16 ug/ml: Susceptible Escherichia coli Trimethoprim/Sulfamethoxazole JOVANNA >=320 ug/ml: Resistant Stevie Zuñiag MD LAB MICROBIOLOGY - GENERAL ORDERABLES Final Result [facility] [address] [place] [address], documented in this encounter Visit Diagnoses Diagnosis Urinary tract infection, site not specified documented in this encounter Care Teams Vp Emerging Media Relationship Specialty Start Date End Date Mary Ann Hickman MD [address] [place] [address] PCP - General Internal Medicine 08/03/24 documented as of this encounter
--- OUTSIDE RECORDS SUMMARY | 2025-07-04 20:35 | XMS_ITS | Clinical Summary ---
Author Organization [facility] Address [address] [place] [address] Care Team Providers Care Hand Worker Name Role Phone Mary Ann Hickman MD Primary Care Provider [phone] Allergies Active Allergy Reactions Criticality Noted Date Comments Alendronate High 08/30/2018 Other reaction(s): Myalgia and Joint Pain Bacitracin-Polymyxin B Itching 02/15/2018 Other reaction(s): Flushing, feeling of warmth Bee Sting Anaphylaxis High 10/15/2021 Celecoxib 11/18/2005 Cephalexin 11/18/2005 Clindamycin 10/06/2010 Throat closing Codeine Itching 11/18/2005 Fish Anaphylaxis High 08/16/2013 Fluconazole 11/18/2005 Hydromorphone 11/03/2017 Other reaction(s): hallucinations Iodine Swelling High 09/16/2011 Other reaction(s): SOB, Wheezing Rxn occurred following steroid injection with omnipaque (iohexol) Nuts High 02/25/2016 Other reaction(s): Numbness, tingling or swelling of the lips, tongue or mouth Iohexol Shortness Of Breath High 10/15/2021 Oxycodone 10/15/2021 Penicillins 10/29/2010 Other reaction(s): Rash/Dermatitis Shellfish-Derived Products 11/18/2005 Sulfa Antibiotics 10/15/2021 Medications Medication Sig Dispensed Refills Start Date End Date Status acetaminophen (TYLENOL EXTRA STRENGTH) 500 MG tablet Take 500 mg by mouth every 6 (six) hours as needed. 0 Active albuterol 108 (90 Base) MCG/ACT inhaler Inhale 2 puffs into the lungs every 4 (four) hours as needed for wheezing. 0 05/26/2019 Active atorvastatin (LIPITOR) tablet 20 mg Take 1 tablet by mouth daily. 0 11/24/2018 Active buPROPion (WELLBUTRIN SR) 150 MG 12 hr tablet Take 1 tablet (150 mg total) by mouth daily. 0 05/24/2019 Active calcium citrate-vitamin D (CITRACAL+D) 315-200 MG-UNIT per tablet Take 1 tablet by mouth daily. 0 Active citalopram (CeleXA) 40 MG tablet Take 40 mg by mouth daily. 0 06/12/2019 Active vitamin B-12 (CYANOCOBALAMIN) tablet 1000 mcg Take 1,000 mcg by mouth daily. 0 Active dicyclomine (BENTYL) 10 MG capsule Take 10 mg by mouth 2 (two) times a day. 0 12/05/2018 Active diphenhydrAMINE (Benadryl Allergy) 25 MG tablet Take 1 tablet by mouth daily as needed. 0 Active EPINEPHrine 0.3 MG/0.3ML SOAJ Inject 0.3 mL (0.3 mg total) into the muscle as needed. 0 04/19/2019 Active fluticasone (FLONASE) 50 MCG/ACT nasal spray spray or apply 100 mcg inside Nose daily. 0 04/19/2019 Active furosemide (LASIX) 20 MG tablet Take 20 mg by mouth daily. 0 09/14/2018 Active gabapentin (NEURONTIN) 600 MG tablet Take 600 mg by mouth 3 (three) times a day. 900 mg HS 0 02/17/2019 Active levothyroxine (SYNTHROID) tablet 88 mcg Take 1 tablet by mouth daily. 0 03/30/2019 Active MAGNESIUM PO Take 1 tablet by mouth daily. 0 Active topiramate (TOPAMAX) 100 MG tablet Take 1 tablet (100 mg total) by mouth 2 (two) times a day. 0 Active traMADol (ULTRAM) 50 MG tablet Take 50 mg by mouth daily. 0 05/24/2019 Active warfarin (COUMADIN) 5 MG tablet Take 5 mg by mouth daily. Adjust per INR 0 06/01/2019 Active Multiple Vitamin (MULTIVITAMINS PO) Take by mouth. 0 Ac tive cetirizine (ZyrTEC) 10 MG tablet Take 1 tablet (10 mg total) by mouth daily. 0 Active B Complex Vitamins (B Complex-B12) TABS Take by mouth. 0 Act wesley ASCORBIC ACID PO Take by mouth. 0 Acti ve famotidine (PEPCID) 20 MG tablet Take 1 tablet (20 mg total) by mouth 2 (two) times a day. 0 Active buPROPion (WELLBUTRIN XL) 300 MG 24 hr tablet Take 1 tablet (300 mg total) by mouth daily. 0 Active nitroglycerin (NITROSTAT) 0.[address] 1 tablet (0.4 mg total) under the tongue every 5 (five) minutes as needed for chest pain. 0 Active Social History Tobacco Use Types Packs/Day Years Used Date Smoking Tobacco: Former Cigarettes Q uit: 10/15/2009 Smokeless Tobacco: Never Tobacco Cessation:Counseling Given: Not Answered Alcohol Use Standard Drinks/Week Comments Never 0 (1 standard drink = 0.6 oz pur e alcohol) Sex and Gender Information Value Date Recorded Sex Assigned at Not on file Gender Identity Not on file Sexual Orientation Not on file Job Start Date Occupation Industry Not on file Not on file Not on file Last Filed Vital Signs Vital Sign Reading Time Taken Comments Blood Pressure 140/52 06/19/2024 2:08 PM EDT Pulse 84 06/19/2024 2:08 PM EDT Temperature 36.2 C (97.1 F) 06/19/2024 2:08 PM EDT Respiratory Rate - - Oxygen Saturation 97% 06/19/2024 2:08 PM EDT Inhaled Oxygen Concentration - - Weight 110.4 kg (243 lb 6.4 oz) 06/19/2024 2:08 PM EDT Height 165.1 cm (5' 5 ) 06/19/2024 2:08 PM EDT Body Mass Index 40.5 06/19/2024 2:08 PM EDT Plan of Treatment Health Maintenance Due Date Last Done Comments Hepatitis C Screening 1952 Depression Screening 1964 Preventative Health Evaluation 1970 Colon Cancer Screening (Colonoscopy) 1997 Breast Cancer Screening (Mammogram) 2002 Fall Risk Assessment 2017 Osteoporosis Screening (DEXA Scan) 2017 COVID-19 Vaccine ( season) 2025 07/08/2023, 06/24/2022, 08/09/2021, Additional history exists Influenza Vaccine (#1) 2025 , 07/08/2023, 07/08/2023, Additional history exists DTap / Tdap / Td (4 - Td or Tdap) 05/19/2025 05/19/2015, 05/15/2014, 02/26/2004, Additional history exists RSV Adult > 60+ Yrs or (1 - 1-dose 75+ series) 2027 Shingrix-Zoster Vaccine Completed 08/06/2020, 05/14 Pneumococcal Vaccine Completed 07/09/2023, 07/08/2023, 07/24/2021, Additional history exists Hepatitis B Vaccines Aged Out No long er eligible based on patient's age to complete this topic RSV Ped < 20 months Aged Out No longe r eligible based on patient's age to complete this topic Care Teams Hand Worker Relationship Specialty Start Date End Date Mary Ann Hickman MD [address] [place] [address] PCP - General Internal Medicine 06/05/24
--- OUTSIDE RECORDS SUMMARY | 2025-07-04 20:35 | XMS_ITS | Encounter Summary ---
Author Organization [facility] Address [address] [place] [address] Care Team Providers Care Supervisor Curing Room Name Role Phone Mary Ann Hickman MD Primary Care Provider [phone] Encounter Details Date Type Department Care Team (Late Contact Info) Description 01/01/2025 Lab Requisition [facility] - Main Lab 299 [facility] [place] [phone] Stevie Zuñiga MD [address] [place] [address] Unspecified atrial fibrillation (CMS/HCC V24, CMS/HCC V28) [...] 2:45 PM EDT Clinical Support Coumadin Clinic [address] [address] 07/18/2025 11:00 AM EST Office Visit Orthopedic Surgery - [place] [address] [phone] Rebel Acharya, DPM 175 [facility] [address] [place] [phone] 09/10/2025 3:15 PM EST Office Visit Urogynecology [address] [phone] Stefanie Alvarado MD [address] [place] [address] [address] [place] [address] 09/18/2025 11:30 AM EST Office Visit [facility] [address] [phone] Mary Ann Hickman MD [address] [place], [place] documented as of this encounter Procedures Procedure Name Priority Date/Time Associated Diagnosis Comments PROTHROMBIN TIME WITH INR Routine 01/01/2025 7:37 AM EDT Unspecified atrial fibrillation ([facility]/HCC V24, CMS/HCC V28) documented in this encounter Results * (ABNORMAL) Prothrombin time with INR (01/01/2025 7:37 AM EDT) Protime 33.2(H) 10.6 - 13.9 sec LAB COAGULATION METHOD 01/01/2025 10:23 AM EDT [facility] INR 2.7 LAB COAGULATION METHOD 01/01/2025 10:23 AM EDT [facility] Blood Venous blood specimen / Unknown Venipuncture / Unknown 01/01/2025 7:37 AM EDT 01/01/2025 9:57 AM EDT us Stevie Zuñiga MD LAB BLOOD ORDERABLES Final Result [facility] [address] [place], [place] [address] [phone] documented in this encounter Visit Diagnoses Diagnosis Unspecified atrial fibrillation (CMS/HCC V24, CMS/HCC V28) documented in this encounter Care Teams Supervisor Curing Room Relationship Specialty Start Date End Date Mary Ann Hickman MD [address] [place] [phone] PCP - General Internal Medicine 08/03/24 documented as of this encounter
--- OUTSIDE RECORDS SUMMARY | 2025-07-04 20:35 | XMS_ITS | Encounter Summary ---
Author Organization [facility] Address [address] [place] [address] Care Team Providers Care Spool Carrier Name Role Phone Mary Ann H[place] MD Primary Care Provider [phone] Encounter Details Date Type Department Care Team (Late Contact Info) Description 11/08/2024 Lab Requisition [facility] - Main Lab 299 [facility] [place] [phone] Stevie Zuñiga MD [address] [place] [address] Essential (primary) hypertension; senior care (current) use of 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; Presence of prosthetic heart valve Social History [...] 2:45 PM EDT [facility] [address] [phone] 07/18/2025 11:00 AM EST Office Visit Orthopedic Surgery - [place] [address] [phone] Rebel Acharya, DPM 175 [facility] [address] [place] [address] 09/10/2025 3:15 PM EST Office Visit Urogynecology [address] [phone] Stefanie Alvarado MD 580 [facility] [address] [place] [address] 09/18/2025 11:30 AM EST Office Visit Adult [facility] - [address] [phone] Mary Ann [place] MD 444 [place], [place] documented as of this encounter Procedures Procedure Name Priority Date/Time Associated Diagnosis Comments PROTHROMBIN TIME WITH INR Routine 11/09/2024 7:04 AM EST Essential (primary) hypertension senior care (current) use of 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 Presence of prosthetic heart valve BASIC METABOLIC PANEL Routine 11/09/2024 7:04 AM EST 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 Presence of prosthetic heart valve documented in this encounter Results * (ABNORMAL) Basic metabolic panel (11/09/2024 7:04 AM EST) Sodium 145 133 - 145 mmol/L LAB CHEMISTRY METHOD 11/09/2024 10:45 AM [facility] Potassium 3.8 3.5 - 5.5 mmol/L LAB CHEMISTRY METHOD 11/09/2024 10:45 AM [facility] Chloride 112(H) 96 - 110 mmol/L LAB CHEMISTRY METHOD 11/09/2024 10:45 AM [facility] CO2 24 21 - 32 mmol/L LAB CHEMISTRY METHOD 11/09/2024 10:45 AM [facility] Anion Gap 9 3 - 11 LAB CHEMISTRY METHOD 11/09/2024 10:45 AM [facility] Glucose 71 70 - 100 mg/dL LAB CHEMISTRY METHOD 11/09/2024 10:45 AM [facility] BUN 11 5 - 25 mg/dL LAB CHEMISTRY METHOD 11/09/2024 10:45 AM [facility] Creatinine 0.78 0.50 - 1.10 mg/dL LAB CHEMISTRY METHOD 11/09/2024 10:45 AM EST [facility] eGFR 81 >=60 mL/min/1. 73m2 LAB CHEMISTRY METHOD 11/09/2024 10:45 AM [facility] Comment:Calculation based on the Chronic Kidney Disease Epidemiology Collaboration (CKD-EPI) equation refit without adjustment for race. BUN/Creatinine Ratio 14.1 LAB CHEMISTRY METHOD 11/09/2024 10:45 AM [facility] Calcium 8.7 8.5 - 10.5 mg/dL LAB CHEMISTRY METHOD 11/09/2024 10:45 AM [facility] Blood Venous blood specimen / Unknown Venipuncture / Unknown 11/09/2024 7:04 AM EST 11/09/2024 8:35 AM EST us Stevie Zuñiga MD LAB BLOOD ORDERABLES Final Result [facility] [address] [place] [address], * (ABNORMAL) Prothrombin time with INR (11/09/2024 7:04 AM EST) Protime 33.0(H) 10.6 - 13.9 sec LAB COAGULATION METHOD 11/09/2024 10:07 AM EST [facility] INR 2.7 LAB COAGULATION METHOD 11/09/2024 10:07 AM [facility] Blood Venous blood specimen / Unknown Venipuncture / Unknown 11/09/2024 7:04 AM EST 11/09/2024 8:35 AM EST Stevie Zuñiga MD LAB BLOOD ORDERABLES Final Result [facility] [address] [place] [address], documented in this encounter Visit Diagnoses Diagnosis Essential (primary) hypertension 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
--- OUTSIDE RECORDS SUMMARY | 2025-07-04 20:35 | XMS_ITS | Encounter Summary ---
Author Organization [facility] Address [address] [place] [address] Care Team Providers Care Yardmaster Name Role Phone Mary Ann H[place] MD Primary Care Provider [phone] Encounter Details Date Type Department Care Team (Late Contact Info) Description 12/26/2024 Lab Requisition [facility] - Main Lab 299 [facility] [place] [address] Stevie Zuñiga MD [address] [place] [address] Hyperlipidemia, unspecified; Unspecified atrial fibrillation (CMS/HCC V24, CMS/HCC V28); Chronic kidney disease, unspecified Social History Tobacco [...] 2:45 PM EDT Clinical Support Coumadin [address] [phone] 07/18/2025 11:00 AM EST Office Visit Orthopedic Surgery - [place] [address] [phone] Rebel Acharya, DPM 175 [place] [facility] 250 [place] [phone] 09/10/2025 3:15 PM EST Office Visit Urogynecology [address] [phone] Stefanie Alvarado MD [address] [place] [address] [address] [place] [address] 09/18/2025 11:30 AM EST Office Visit [facility] - [address] [phone] Mary Ann [place] MD [address] [place] [address] documented as of this encounter Procedures Procedure Name Priority Date/Time Associated Diagnosis Comments CBC WITH AUTO DIFFERENTIAL Routine 12/26/2024 8:27 AM EDT Hyperlipidemia, unspecified Unspecified atrial fibrillation (CMS/HCC V24, CMS/HCC V28) Chronic kidney disease, unspecified PROTHROMBIN TIME WITH INR Routine 12/26/2024 8:27 AM EDT Hyperlipidemia, unspecified Unspecified atrial fibrillation (CMS/HCC V24, CMS/HCC V28) Chronic kidney disease, unspecified CBC AND DIFFERENTIAL Routine 12/26/2024 8:27 AM EDT Hyperlipidemia, unspecified Unspecified atrial fibrillation (CMS/HCC V24, CMS/HCC V28) Chronic kidney disease, unspecified COMPREHENSIVE METABOLIC PANEL Routine 12/26/2024 8:27 AM EDT Hyperlipidemia, unspecified Unspecified atrial fibrillation (CMS/HCC V24, CMS/HCC V28) Chronic kidney disease, unspecified documented in this encounter Results * (ABNORMAL) CBC auto differential (12/26/2024 8:27 AM EDT) [facility] WBC 4.2(L) 4.8 - 10.8 K/mcL LAB HEMETOLOGY METHOD 12/26/2024 10:42 AM [facility] RBC 3.50(L) 3.80 - 4.80 M/mcL LAB HEMETOLOGY METHOD 12/26/2024 10:42 AM [facility] Hemoglobin 10.4(L) 11.5 - 16.0 g/dL LAB HEMETOLOGY METHOD 12/26/2024 10:42 AM [facility] Hematocrit 33.6(L) 35.0 - 47.0 % LAB HEMETOLOGY METHOD 12/26/2024 10:42 AM [facility] MCV 96.8 79.0 - 98.0 FL LAB HEMETOLOGY METHOD 12/26/2024 10:42 AM [facility] MCH 30.0 27.0 - 32.0 pcg LAB HEMETOLOGY METHOD 12/26/2024 10:42 AM [facility] MCHC 31.0(L) 32.0 - 37.0 g/dL LAB HEMETOLOGY METHOD 12/26/2024 10:42 AM [facility] RDW 16.3(H) 11.0 - 15.0 % LAB HEMETOLOGY METHOD 12/26/2024 10:42 AM [facility] Platelets 185 130 - 400 K/mcL LAB HEMETOLOGY METHOD 12/26/2024 10:42 AM [facility] MPV 10.5 7.0 - 11.0 FL LAB HEMETOLOGY METHOD 12/26/2024 10:42 AM [facility] NRBC 0.0 <1.0 % LAB HEMETOLOGY METHOD 12/26/2024 10:42 AM [facility] NRBC Absolute 0.00 <0.10 K/mcL LAB HEMETOLOGY METHOD 12/26/2024 10:42 AM [facility] Neutrophils Relative 59.8 % LAB HEMETOLOGY METHOD 12/26/2024 10:42 AM [facility] Lymphocytes Relative 25.7 % LAB HEMETOLOGY METHOD 12/26/2024 10:42 AM [facility] Monocytes Relative 5.3 % LAB HEMETOLOGY METHOD 12/26/2024 10:42 AM [facility] Eosinophils Relative 7.7 % LAB HEMETOLOGY METHOD 12/26/2024 10:42 AM [facility] Basophils Relative 1.0 % LAB HEMETOLOGY METHOD 12/26/2024 10:42 AM [facility] Immature Granulocytes Relative 0.5 % LAB HEMETOLOGY METHOD 12/26/2024 10:42 AM [facility] Neutrophils Absolute 2.50 1.50 - 7.00 K/mcL LAB HEMETOLOGY METHOD 12/26/2024 10:42 AM [facility] Lymphocytes Absolute 1.07 1.00 - 5.00 K/mcL LAB HEMETOLOGY METHOD 12/26/2024 10:42 AM [facility] Monocytes Absolute 0.22 0.20 - 1.00 K/mcL LAB HEMETOLOGY METHOD 12/26/2024 10:42 AM [facility] Eosinophils Absolute 0.32 0.00 - 0.50 K/mcL LAB HEMETOLOGY METHOD 12/26/2024 10:42 AM [facility] Basophils Absolute 0.04 0.00 - 0.20 K/mcL LAB HEMETOLOGY METHOD 12/26/2024 10:42 AM [facility] Immature Granulocytes Absolute 0.02 0.00 - 0.03 K/mcL LAB HEMETOLOGY METHOD 12/26/2024 10:42 AM [facility] Blood Venous blood specimen / Unknown Venipuncture / Unknown 12/26/2024 8:27 AM EDT 12/26/2024 10:17 AM EDT us Stevie Zuñiga MD LAB BLOOD ORDERABLES Final Result Performing Organization Address [facility]/ZIP Co de Phone Number [facility] [address] [place] [address], [place] [phone] * (ABNORMAL) Prothrombin time with INR (12/26/2024 8:27 AM EDT) Protime 24.4(H) 10.6 - 13.9 sec LAB COAGULATION METHOD 12/26/2024 10:[address] [facility] INR 2.0 LAB COAGULATION METHOD 12/26/2024 10:[address] [facility] Blood Venous blood specimen / Unknown Venipuncture / Unknown 12/26/2024 8:27 AM EDT 12/26/2024 10:17 AM EDT us Stevie Zuñiga MD LAB BLOOD ORDERABLES Final Result Performing Organization Address [facility]/ZIP Co de Phone Number [facility] [address] [place] [address], [place] [phone] * (ABNORMAL) Comprehensive metabolic panel (12/26/2024 8:27 AM EDT) [facility] Sodium 142 133 - 145 mmol/L LAB CHEMISTRY METHOD 12/26/2024 11:[address] [facility] Potassium 3.4(L) 3.5 - 5.5 mmol/L LAB CHEMISTRY METHOD 12/26/2024 11:[address] [facility] Chloride 111(H) 96 - 110 mmol/L LAB CHEMISTRY METHOD 12/26/2024 11:[address] [facility] CO2 25 21 - 32 mmol/L LAB CHEMISTRY METHOD 12/26/2024 11:38 AM [facility] Anion Gap 6 3 - 11 LAB CHEMISTRY METHOD 12/26/2024 11:38 AM [facility] Glucose 113(H) 70 - 100 mg/dL LAB CHEMISTRY METHOD 12/26/2024 11:38 AM [facility] BUN 15 5 - 25 mg/dL LAB CHEMISTRY METHOD 12/26/2024 11:38 AM [facility] Creatinine 1.09 0.50 - 1.10 mg/dL LAB CHEMISTRY METHOD 12/26/2024 11:38 AM [facility] eGFR 54(L) >=60 mL/min/1. 73m2 LAB CHEMISTRY METHOD 12/26/2024 11:38 AM [facility] Comment:Calculation based on the Chronic Kidney Disease Epidemiology Collaboration (CKD-EPI) equation refit without adjustment for race. BUN/Creatinine Ratio 13.8 LAB CHEMISTRY METHOD 12/26/2024 11:38 AM [facility] Calcium 8.8 8.5 - 10.5 mg/dL LAB CHEMISTRY METHOD 12/26/2024 11:38 AM [facility] AST (SGOT) 14 10 - 42 unit/L LAB CHEMISTRY METHOD 12/26/2024 11:38 AM [facility] ALT (SGPT) 9(L) 10 - 60 unit/L LAB CHEMISTRY METHOD 12/26/2024 11:38 AM [facility] Alkaline Phosphatase 87 42 - 121 unit/L LAB CHEMISTRY METHOD 12/26/2024 11:38 AM [facility] Total Protein 6.0 6.0 - 8.0 g/dL LAB CHEMISTRY METHOD 12/26/2024 11:38 AM [facility] Albumin 2.7(L) 3.2 - 5.0 g/dL LAB CHEMISTRY METHOD 12/26/2024 11:38 AM [facility] Total Bilirubin 0.2 0.0 - 1.4 mg/dL LAB CHEMISTRY METHOD 12/26/2024 11:[address] [facility] Blood Venous blood specimen / Unknown Venipuncture / Unknown 12/26/2024 8:27 AM EDT 12/26/2024 10:17 AM EDT us Stevie Zuñiga MD LAB BLOOD ORDERABLES Final Result [facility] [address] [place] [address], documented in this encounter Visit Diagnoses Diagnosis Hyperlipidemia, unspecified Unspecified atrial fibrillation (CMS/HCC V24, CMS/HCC V28) Chronic kidney disease, unspecified documented in this encounter Care Teams Yardmaster Relationship Specialty Start Date End Date Mary Ann H[place] MD [address] [place] [phone] PCP - General Internal Medicine 08/03/24 documented as of this encounter
--- OUTSIDE RECORDS SUMMARY | 2025-07-04 20:35 | XMS_ITS | Encounter Summary ---
Author Organization [facility] Address [address] [place] [address] Care Team Providers Care Jackscrew Man Name Role Phone Mary Ann [place] MD Primary Care Provider [phone] Encounter Details Date Type Department Care Team (Late Contact Info) Description 12/27/2024 Lab Requisition [facility] - Main Lab 299 [facility] [place] [facility] [place] [phone] Stevie Zuñiga MD [address] [place] [address] Unspecified atrial fibrillation (CMS/HCC V24, CMS/HCC V28) [...] 2:45 PM EDT Clinical Support [facility]in Clinic [address] [phone] 07/18/2025 11:00 AM EST Office Visit Orthopedic Surgery - [place] [address] [phone] Rebel Acharya, DPM 175 [facility] [address] [place] [phone] 09/10/2025 3:15 PM EST Office Visit Urogynecology [address] [phone] Stefanie Alvarado MD [address] [place] [address] [address] [place] [address] 09/18/2025 11:30 AM EST Office Visit [facility] [address] [phone] Mary Ann [place] MD 444 [place], [place] documented as of this encounter Procedures Procedure Name Priority Date/Time Associated Diagnosis Comments PROTHROMBIN TIME WITH INR Routine 12/27/2024 6:40 AM EDT Unspecified atrial fibrillation (CMS/HCC V24, CMS/HCC V28) documented in this encounter Results * (ABNORMAL) Prothrombin time with INR (12/27/2024 6:40 AM EDT) Protime 29.4(H) 10.6 - 13.9 sec LAB COAGULATION METHOD 12/27/2024 9:56 AM EDT [facility] INR 2.4 LAB COAGULATION METHOD 12/27/2024 9:56 AM EDT [facility] Blood Venous blood specimen / Unknown Venipuncture / Unknown 12/27/2024 6:40 AM EDT 12/27/2024 8:41 AM EDT us Stevie Zuñiga MD LAB BLOOD ORDERABLES Final Result [facility] [address] [place], [place] [address] [phone] documented in this encounter Visit Diagnoses Diagnosis Unspecified atrial fibrillation (CMS/HCC V24, CMS/HCC V28) documented in this encounter Care Teams Jackscrew Man Relationship Specialty Start Date End Date Mary Ann [place] MD [address] [place] [phone] PCP - General Internal Medicine 08/03/24 documented as of this encounter
--- OUTSIDE RECORDS SUMMARY | 2025-07-04 20:35 | XMS_ITS | Encounter Summary ---
Author Organization [facility] Address [address] [place] [address] Care Team Providers Care Automotive Sales Representative Name Role Phone Mary Ann [place] MD Primary Care Provider [phone] Encounter Details Date Type Department Care Team (Late Contact Info) Description 11/15/[address] [facility] - Main Lab 299 [facility] [place] [phone] Stevie Zuñiga MD [address] [place] [address] Unspecified atrial fibrillation (CMS/HCC V24, CMS/HCC V28) [...] 2:45 PM EDT Clinical Support [facility] [address] [phone] 07/18/2025 11:00 AM EST Office Visit Orthopedic Surgery - [place] [address] [phone] Rebel Acharya, DPM 175 [facility] [address] [place] [phone] 09/10/2025 3:15 PM EST Office Visit Urogynecology [address] [phone] Stefanie Alvarado MD [address] [place] [address] [address] [place] [address] 09/18/2025 11:30 AM EST Office Visit [facility] - [address] [phone] Mary Ann [place] MD 4 [place], [place] documented as of this encounter Procedures Procedure Name Priority Date/Time Associated Diagnosis Comments PROTHROMBIN TIME WITH INR Routine 11/16/2024 6:23 AM EST Unspecified atrial fibrillation (CMS/HCC) documented in this encounter Results * (ABNORMAL) Prothrombin time with INR (11/16/2024 6:23 AM EST) Protime 30.8(H) 10.6 - 13.9 sec LAB COAGULATION METHOD 11/16/2024 9:33 AM EST [facility] INR 2.5 LAB COAGULATION METHOD 11/16/2024 9:33 AM EST [facility] Blood Venous blood specimen / Unknown Venipuncture / Unknown 11/16/2024 6:23 AM EST 11/16/2024 9:05 AM EST us Stevie Zuñiga MD LAB BLOOD ORDERABLES Final Result [facility] [address] [place] [address], documented in this encounter Visit Diagnoses Diagnosis Unspecified atrial fibrillation ([facility] V24, [facility] V28) documented in this encounter Additional Health Concerns Infection Onset Date Last Indicated Resolved Time Influenza 10/25/2024 10/25/2024 11/18/2024 7:04 PM EST documented as of this encounter Care Teams Automotive Sales Representative Relationship Specialty Start Date End Date Mary Ann [place] MD 4 [place] [phone] PCP - General Internal Medicine 08/03/24 documented as of this encounter
--- OUTSIDE RECORDS SUMMARY | 2025-07-04 20:35 | XMS_ITS | Encounter Summary ---
Author Organization [facility] Address [address] [place] [address] Care Team Providers Care Charge Master Specialist Name Role Phone Mary Ann Hickman MD Primary Care Provider [phone] Encounter Details Date Type Department Care Team (Latest Contact Info) Description 01/27/2025 Lab Requisition [facility] - Main Lab 299 [facility] [place] [phone] Stevie Zuñiga MD [address] [place] [address] Presence of prosthetic heart valve; Acute posthemorrhagic anemia; Methicillin susceptible Staphylococcus aureus infection as the cause of diseases classified elsewhere; Unspecified atrial fibrillation (CMS/HCC V24, CMS/HCC V28); Essential (primary) hypertension Social History Tobacco Use [...] 07/05/2025 2:45 PM EDT Clinical Support Coumadin [address] [address] 07/18/2025 11:00 AM EST Office Visit Orthopedic Surgery - [place] 250 175 [facility] [address] [place] [address] Rebel Acharya, DPM 175 [facility] 250 [place] [phone] 09/10/2025 3:15 PM EST Office Visit Urogynecology [address] [phone] Stefanie Alvarado MD [address] [place] [address] [address] [place] [address] 09/18/2025 11:30 AM EST Office Visit Adult [facility] - [address] [phone] Mary Ann Hickman MD [address] [place] [address] documented as of this encounter Procedures Procedure Name Priority Date/Time Associated Diagnosis Comments PROTHROMBIN TIME WITH INR Routine 01/29/2025 8:03 AM EDT Presence of prosthetic heart valve Acute posthemorrhagic anemia Methicillin susceptible Staphylococcus aureus infection as the cause of diseases classified elsewhere Unspecified atrial fibrillation (CMS/HCC V24, CMS/HCC V28) Essential (primary) hypertension COMPLETE BLOOD COUNT Routine 01/29/2025 8:03 AM EDT Presence of prosthetic heart valve Acute posthemorrhagic anemia Methicillin susceptible Staphylococcus aureus infection as the cause of diseases classified elsewhere Unspecified atrial fibrillation (CMS/HCC V24, CMS/HCC V28) Essential (primary) hypertension COMPREHENSIVE METABOLIC PANEL Routine 01/29/2025 8:03 AM EDT Presence of prosthetic heart valve Acute posthemorrhagic anemia Methicillin susceptible Staphylococcus aureus infection as the cause of diseases classified elsewhere Unspecified atrial fibrillation (CMS/HCC V24, CMS/HCC V28) Essential (primary) hypertension documented in this encounter Results * (ABNORMAL) Prothrombin time with INR (01/29/2025 8:03 AM EDT) Protime 16.1(H) 10.6 - 13.9 sec LAB COAGULATION METHOD 01/29/2025 [facility].3 LAB COAGULATION METHOD 01/29/2025 10:40 AM EDT [facility] Blood Venous blood specimen / Unknown Venipuncture / Unknown 01/29/2025 8:03 AM EDT 01/29/2025 10:02 AM EDT us Stevie Zuñiga MD LAB BLOOD ORDERABLES Final Result [facility] 299 [place] [address], [place] [phone] * (ABNORMAL) Comprehensive metabolic panel (01/29/2025 8:03 AM EDT) [facility] Sodium 140 133 - 145 mmol/L LAB CHEMISTRY METHOD 01/29/2025 12:54 PM [facility] Potassium 4.2 3.5 - 5.5 mmol/L LAB CHEMISTRY METHOD 01/29/2025 12:54 PM [facility] Chloride 110 96 - 110 mmol/L LAB CHEMISTRY METHOD 01/29/2025 12:54 PM [facility] CO2 21 21 - 32 mmol/L LAB CHEMISTRY METHOD 01/29/2025 12:54 PM [facility] Anion Gap 9 3 - 11 LAB CHEMISTRY METHOD 01/29/2025 12:54 PM [facility] Glucose 73 70 - 100 mg/dL LAB CHEMISTRY METHOD 01/29/2025 12:54 PM [facility] BUN 29(H) 5 - 25 mg/dL LAB CHEMISTRY METHOD 01/29/2025 12:54 PM [facility] Comment:Results verified by repeat testing Creatinine 1.10 0.50 - 1.10 mg/dL LAB CHEMISTRY METHOD 01/29/2025 12:54 PM [facility] eGFR 53(L) >=60 mL/min/1. 73m2 LAB CHEMISTRY METHOD 01/29/2025 12:54 PM [facility] Comment:Calculation based on the Chronic Kidney Disease Epidemiology Collaboration (CKD-EPI) equation refit without adjustment for race. BUN/Creatinine Ratio 26.4 LAB CHEMISTRY METHOD 01/29/2025 12:54 PM [facility] Calcium 9.2 8.5 - 10.5 mg/dL LAB CHEMISTRY METHOD 01/29/2025 12:54 PM [facility] AST (SGOT) 13 10 - 42 unit/L LAB CHEMISTRY METHOD 01/29/2025 12:54 PM [facility] ALT (SGPT) 10 10 - 60 unit/L LAB CHEMISTRY METHOD 01/29/2025 12:54 PM [facility] Alkaline Phosphatase 87 42 - 121 unit/L LAB CHEMISTRY METHOD 01/29/2025 12:54 PM [facility] Total Protein 6.3 6.0 - 8.0 g/dL LAB CHEMISTRY METHOD 01/29/2025 12:54 PM [facility] Albumin 3.0(L) 3.2 - 5.0 g/dL LAB CHEMISTRY METHOD 01/29/2025 12:54 PM [facility] Total Bilirubin 0.2 0.0 - 1.4 mg/dL LAB CHEMISTRY METHOD 01/29/2025 12:54 PM [facility] Blood Venous blood specimen / Unknown Venipuncture / Unknown 01/29/2025 8:03 AM EDT 01/29/2025 10:02 AM EDT us Stevie Zuñiga MD LAB BLOOD ORDERABLES Final Result [facility] [address] [place] [address], * (ABNORMAL) Complete blood count (01/29/2025 8:03 AM EDT) [facility] Signature WBC 4.6(L) 4.8 - 10.8 K/mcL LAB HEMETOLOGY METHOD 01/29/2025 11:38 AM EDT [facility] RBC 3.80 3.80 - 4.80 M/mcL LAB HEMETOLOGY METHOD 01/29/2025 11:38 AM EDT [facility] Hemoglobin 11.4(L) 11.5 - 16.0 g/dL LAB HEMETOLOGY METHOD 01/29/2025 11:38 AM EDT [facility] Hematocrit 36.0 35.0 - 47.0 % LAB HEMETOLOGY METHOD 01/29/2025 11:38 AM EDT [facility] MCV 96.0 79.0 - 98.0 FL LAB HEMETOLOGY METHOD 01/29/2025 11:38 AM EDT [facility] MCH 30.4 27.0 - 32.0 pcg LAB HEMETOLOGY METHOD 01/29/2025 11:38 AM EDT [facility] MCHC 31.7(L) 32.0 - 37.0 g/dL LAB HEMETOLOGY METHOD 01/29/2025 11:38 AM EDT [facility] RDW 14.8 11.0 - 15.0 % LAB HEMETOLOGY METHOD 01/29/2025 11:38 AM EDT [facility] Platelets 165 130 - 400 K/mcL LAB HEMETOLOGY METHOD 01/29/2025 11:38 AM EDT [facility] MPV 10.5 7.0 - 11.0 FL LAB HEMETOLOGY METHOD 01/29/2025 11:38 AM EDT [facility] NRBC 0.4 <1.0 % LAB HEMETOLOGY METHOD 01/29/2025 11:38 AM EDT [facility] NRBC Absolute 0.02 <0.10 K/mcL LAB HEMETOLOGY METHOD 01/29/2025 11:38 AM EDT [facility] Blood Venous blood specimen / Unknown Venipuncture / Unknown 01/29/2025 8:03 AM EDT 01/29/2025 10:02 AM EDT us Stevie Zuñiga MD LAB BLOOD ORDERABLES Final Result [facility] [address] [place] [address], documented in this encounter Visit Diagnoses Diagnosis Presence of prosthetic heart valve Acute posthemorrhagic anemia Methicillin susceptible Staphylococcus aureus infection as the cause of diseases classified elsewhere Unspecified atrial fibrillation (CMS/HCC V24, CMS/HCC V28) Essential (primary) hypertension Unspecified essential hypertension documented in this encounter Care Teams Charge Master Specialist Relationship Specialty Start Date End Date Mary Ann Hickman MD [address] [place] [address] PCP - General Internal Medicine 08/03/24 documented as of this encounter
--- OUTSIDE RECORDS SUMMARY | 2025-07-04 20:35 | XMS_ITS | Encounter Summary ---
Author Organization [facility] Address [address] [place] [address] Care Team Providers Care Court Deputy Name Role Phone Mary Ann Hickman MD Primary Care Provider [phone] Encounter Details Date Type Department Care Team (Late Contact Info) Description 02/09/2025 Lab Requisition [facility] - Main Lab 299 [facility] [place] [phone] Stevie Zuñiga MD [address] [place] [address] Dysuria; Frequency of micturition Social History Tobacco Use Types Packs/Day Years [...] 07/05/2025 2:45 PM EDT Clinical Support Coumadin [address] [address] 07/18/2025 11:00 AM EST Office Visit Orthopedic Surgery - [place] 250 175 [facility] 250 [place] [phone] Rebel Acharya, DPM 175 [facility] [address] [place] [address] 09/10/2025 3:15 PM EST Office Visit Urogynecology [address] [phone] Stefanie Alvarado MD 580 [facility] [address] [place] [address] 09/18/2025 11:30 AM EST Office Visit Adult [facility] - [address] [phone] Mary Ann Hickman MD [address] [place], [place] documented as of this encounter Procedures Procedure Name Priority Date/Time Associated Diagnosis Comments URINALYSIS WITH REFLEX MICROSCOPIC Routine 02/09/2025 12:00 AM EDT Dysuria Frequency of micturition URINALYSIS WITH REFLEX MICROSCOPIC Routine 02/09/2025 12:00 AM EDT Dysuria Frequency of micturition CULTURE URINE Routine 02/09/2025 12:00 AM EDT Dysuria Frequency of micturition documented in this encounter Results * (ABNORMAL) Urinalysis with reflex microscopic (02/09/2025 12:00 AM EDT) [facility] [place] Urine 1.015 1.003 - 1.030 LAB URINALYSIS - AUTOMATED METHOD 02/09/2025 9:43 AM [facility] pH, Urine 5.5 5.0 - 8.0 pH LAB URINALYSIS - AUTOMATED METHOD 02/09/2025 9:43 AM [facility] Leukocytes, Urine Large(A) Negative LAB URINALYSIS - AUTOMATED METHOD 02/09/2025 9:43 AM [facility] Nitrite, Urine Negative Negative LAB URINALYSIS - AUTOMATED METHOD 02/09/2025 9:43 AM [facility] Protein, Urine 30(A) <=Trace mg/dL LAB URINALYSIS - AUTOMATED METHOD 02/09/2025 9:43 AM [facility] Glucose, Urine Negative Negative mg/dL LAB URINALYSIS - AUTOMATED METHOD 02/09/2025 9:43 AM [facility] Ketones, Urine Trace(A) Negative mg/dL LAB URINALYSIS - AUTOMATED METHOD 02/09/2025 9:43 AM [facility] Urobilinogen , Urine 0.2 0.2 - 1.0 mg/dL LAB URINALYSIS - AUTOMATED METHOD 02/09/2025 9:43 AM [facility] Bilirubin, Urine Negative Negative LAB URINALYSIS - AUTOMATED METHOD 02/09/2025 9:43 AM [facility] Blood, Urine Small(A) Negative LAB URINALYSIS - AUTOMATED METHOD 02/09/2025 9:43 AM [facility] RBC, Urine 4.0 0 - 4 /HPF LAB URINALYSIS - AUTOMATED METHOD 02/09/2025 9:43 AM [facility] WBC, Urine 490.6(H) 0 - 4 /HPF LAB URINALYSIS - AUTOMATED METHOD 02/09/2025 9:43 AM [facility] Squamous Epithelial, Urine 29 0 - 60 /LPF LAB URINALYSIS - AUTOMATED METHOD 02/09/2025 9:43 AM [facility] Non-Squamous Epithelial, Urine 2-5 TRANSITIONAL EPI /LPF LAB URINALYSIS - AUTOMATED METHOD 02/09/2025 9:43 AM [facility] Crystals, Urine MOD CALCIUM OXALATE /LPF LAB URINALYSIS - AUTOMATED METHOD 02/09/2025 9:43 AM [facility] Bacteria, Urine Few(A) Negative /HPF LAB URINALYSIS - AUTOMATED METHOD 02/09/2025 9:43 AM EDT [facility] Hyaline Casts, Urine 3.0 0 - 3 /LPF LAB URINALYSIS - AUTOMATED METHOD 02/09/2025 9:43 AM EDT [facility] Urine Urine specimen obtained by clean catch procedure / Unknown Non-blood Collection / Unknown 02/09/2025 02/09/2025 8:24 AM EDT Stevie Zuñiga MD LAB URINE ORDERABLES Final Result [facility] [address] [place] [address], [place] [phone] * Culture urine (02/09/2025 12:00 AM EDT) Culture, Urine <10,000 CFU/mL gram negative bacilli, insignificant count, no further workup 02/10/2025 8:39 AM EDT [facility] Urine Urine specimen obtained by clean catch procedure / Unknown Non-blood Collection / Unknown 02/09/2025 02/09/2025 8:24 AM EDT us Stevie Zuñiga MD LAB MICROBIOLOGY - GENERAL ORDERABLES Final Result [facility] [address] [place] [address], [place] [phone] documented in this encounter Visit Diagnoses Diagnosis Dysuria Frequency of micturition Urinary frequency documented in this encounter Care Teams Court Deputy Relationship Specialty Start Date End Date Mary Ann Hickman MD [address] [place] [phone] PCP - General Internal Medicine 08/03/24 documented as of this encounter
--- OUTSIDE RECORDS SUMMARY | 2025-07-04 20:35 | XMS_ITS | Encounter Summary ---
Author Organization [facility] Address [address] [place] [address] Care Team Providers Care Laborer [place] Name Role Phone Mary Ann Hickman MD Primary Care Provider [phone] Encounter Details Date Type Department Care Team (Late Contact Info) Description 01/01/2025 Lab Requisition [facility] - Main Lab 299 [facility] [place] [phone] Stevie Zuñiga MD [address] [place] [address] Unspecified atrial fibrillation (CMS/HCC V24, CMS/HCC V28) [...] 2:45 PM EDT Clinical Support Coumadin Clinic [address] [address] 07/18/2025 11:00 AM EST Office Visit Orthopedic Surgery - [place] [address] [phone] Rebel Acharya, DPM 175 [facility] [address] [place] [address] 09/10/2025 3:15 PM EST Office Visit Urogynecology [address] [phone] Stefanie Alvarado MD 580 [facility] [address] [place] [address] 09/18/2025 11:30 AM EST Office Visit Adult [facility] - [address] [phone] Mary Ann Hickman MD [address] [place] [address] documented as of this encounter Visit Diagnoses Diagnosis Unspecified atrial fibrillation (CMS/HCC V24, CMS/HCC V28) documented in this encounter Care Teams Laborer [place] Relationship Specialty Start Date End Date Mary Ann Hickman MD [address] [place] [address] PCP - General Internal Medicine 08/03/24 documented as of this encounter
--- OUTSIDE RECORDS SUMMARY | 2025-07-04 20:35 | XMS_ITS | Encounter Summary ---
Author Organization [facility] Address [address] [place] [address] Care Team Providers Care Consulting Application Engineer Name Role Phone Mary Ann Hickman MD Primary Care Provider [phone] Encounter Details Date Type Department Care Team (Late Contact Info) Description 02/23/2025 Lab Requisition [facility] - Main Lab 299 [facility] [place] [phone] Driss Moscoso MD [address] [place] [address] Essential (primary) hypertension; Unspecified atrial fibrillation (CMS/HCC [...] 2:45 PM EDT Clinical Support Coumadin Clinic [address] [phone] 07/18/2025 11:00 AM EST Office Visit Orthopedic Surgery - [place] [address] [phone] Rebel Acharya, DPM 175 [facility] [address] [place] [address] 09/10/2025 3:15 PM EST Office Visit Urogynecology [address] [phone] Stefanie Alvarado MD [address] [place] [address] [address] [place] [address] 09/18/2025 11:30 AM EST Office Visit Adult [facility] - [address] [phone] Mary Ann Hickman MD [address] [place] [address] documented as of this encounter Visit Diagnoses Diagnosis Essential (primary) hypertension Unspecified essential hypertension Unspecified atrial fibrillation (CMS/HCC V24, CMS/HCC V28) documented in this encounter Care Teams Consulting Application Engineer Relationship Specialty Start Date End Date Mary Ann Hickman MD [address] [place] [address] PCP - General Internal Medicine 08/03/24 documented as of this encounter
--- OUTSIDE RECORDS SUMMARY | 2025-07-04 20:35 | XMS_ITS | Encounter Summary ---
Author Organization [facility] Address [address] [place] [address] Care Team Providers Care Morning Show Producer Name Role Phone Mary Ann Hickman MD Primary Care Provider [phone] Encounter Details Date Type Department Care Team (Late Contact Info) Description 02/04/2025 Lab Requisition [facility] - Main Lab 299 [facility] [place] [phone] Stevie Zuñiga MD [address] [place] [address] Unspecified atrial fibrillation (CMS/HCC V24, CMS/HCC V28); Presence of prosthetic [...] 07/05/2025 2:45 PM EDT Clinical Support Coumadin [address] [address] 07/18/2025 11:00 AM EST Office Visit Orthopedic Surgery - [place] [address] [phone] Rebel Acharya, DPM 175 [facility] 250 [place] [phone] 09/10/2025 3:15 PM EST Office Visit Urogynecology [address] [phone] Stefanie Alvarado MD 580 [facility] [address] [place] [address] 09/18/2025 11:30 AM EST Office Visit Adult [facility] - [address] [phone] Mary Ann Hickman MD [address] [place], [place] documented as of this encounter Procedures Procedure Name Priority Date/Time Associated Diagnosis Comments PROTHROMBIN TIME WITH INR Routine 02/04/2025 7:44 AM EDT Unspecified atrial fibrillation (CMS/HCC V24, CMS/HCC V28) Presence of prosthetic heart valve documented in this encounter Results * (ABNORMAL) Prothrombin time with INR (02/04/2025 7:44 AM EDT) Protime 35.3(H) 10.6 - 13.9 sec LAB COAGULATION METHOD 02/04/2025 10:41 AM EDT [facility] INR 2.9 LAB COAGULATION METHOD 02/04/2025 10:41 AM EDT [facility] Blood Venous blood specimen / Unknown Venipuncture / Unknown 02/04/2025 7:44 AM EDT 02/04/2025 9:05 AM EDT us Stevie Zuñiga MD LAB BLOOD ORDERABLES Final Result [facility] [address] [place] [address], documented in this encounter Visit Diagnoses Diagnosis Unspecified atrial fibrillation (CMS/HCC V24, CMS/HCC V28) Presence of prosthetic heart valve documented in this encounter Care Teams Morning Show Producer Relationship Specialty Start Date End Date Mary Ann Hickman MD [address] [place] [phone] PCP - General Internal Medicine 08/03/24 documented as of this encounter
--- OUTSIDE RECORDS SUMMARY | 2025-07-04 20:35 | XMS_ITS | Encounter Summary ---
Author Organization [facility] Address [address] [place] [address] Care Team Providers Care Embossing Machine Operator Name Role Phone Mary Ann Hickman MD Primary Care Provider [phone] Encounter Details Date Type Department Care Team (Late Contact Info) Description 12/28/2024 Lab Requisition [facility] - Main Lab 299 [facility] [place] [phone] Stevie Zuñiga MD [address] [place] [address] Unspecified atrial fibrillation (CMS/HCC V24, CMS/HCC V28) [...] 2:45 PM EDT Clinical Support Coumadin Clinic [address] [phone] 07/18/2025 11:00 AM EST Office Visit Orthopedic Surgery - [place] [address] [phone] Rebel Acharya, DPM 175 [facility] [address] [place] [address] 09/10/2025 3:15 PM EST Office Visit Urogynecology [address] [phone] Stefanie Alvarado MD [address] [place] [address] [address] [place] [address] 09/18/2025 11:30 AM EST Office Visit [facility] [address] [phone] Mary Ann Hickman MD [address] [place], [place] documented as of this encounter Procedures Procedure Name Priority Date/Time Associated Diagnosis Comments PROTHROMBIN TIME WITH INR Routine 12/29/2024 6:47 AM EDT Unspecified atrial fibrillation ([facility]/HCC V24, CMS/HCC V28) documented in this encounter Results * (ABNORMAL) Prothrombin time with INR (12/29/2024 6:47 AM EDT) Protime 32.0(H) 10.6 - 13.9 sec LAB COAGULATION METHOD 12/29/2024 8:26 AM EDT [facility] INR 2.6 LAB COAGULATION METHOD 12/29/2024 8:26 AM EDT [facility] Blood Venous blood specimen / Unknown Venipuncture / Unknown 12/29/2024 6:47 AM EDT 12/29/2024 8:04 AM EDT us Stevie Zuñiga MD LAB BLOOD ORDERABLES Final Result [facility] [address] [place], [place] [address] [phone] documented in this encounter Visit Diagnoses Diagnosis Unspecified atrial fibrillation (CMS/HCC V24, CMS/HCC V28) documented in this encounter Care Teams Embossing Machine Operator Relationship Specialty Start Date End Date Mary Ann Hickman MD [address] [place] [phone] PCP - General Internal Medicine 08/03/24 documented as of this encounter
--- OUTSIDE RECORDS SUMMARY | 2025-07-04 20:35 | XMS_ITS | Encounter Summary ---
Author Organization [facility] Address [address] [place] [address] Care Team Providers Care Drilling Field Operator Name Role Phone Mary Ann Hickman MD Primary Care Provider [phone] Encounter Details Date Type Department Care Team (Late Contact Info) Description 01/08/2025 Lab Requisition [facility] - Main Lab 299 [facility] [place] [phone] Stevie Zuñiga MD [address] [place] [address] Presence of prosthetic heart valve Social History [...] 07/05/2025 2:45 PM EDT Clinical Support Coumadin [address] [address] 07/18/2025 11:00 AM EST Office Visit Orthopedic Surgery - [place] 250 175 [facility] 250 [place] [phone] Rebel Acharya, DPM 175 [facility] 250 [place] [address] 09/10/2025 3:15 PM EST Office Visit Urogynecology [address] [phone] Stefanie Alvarado MD [address] [place] [address] [address] [place] [address] 09/18/2025 11:30 AM EST Office Visit Adult Medicine [facility] - [address] [phone] Mary Ann Hickman MD [address] [place] [address] documented as of this encounter Procedures Procedure Name Priority Date/Time Associated Diagnosis Comments PROTHROMBIN TIME WITH INR Routine 01/09/2025 8:28 AM EDT Presence of prosthetic heart valve documented in this encounter Results * (ABNORMAL) Prothrombin time with INR (01/09/2025 8:28 AM EDT) Protime 22.0(H) 10.6 - 13.9 sec LAB COAGULATION METHOD 01/09/2025 10:09 AM EDT [facility] INR 1.8 LAB COAGULATION METHOD 01/09/2025 10:09 AM EDT [facility] Blood Venous blood specimen / Unknown Venipuncture / Unknown 01/09/2025 8:28 AM EDT 01/09/2025 9:36 AM EDT us Stevie Zuñiga MD LAB BLOOD ORDERABLES Final Result [facility] [address] [place] [address], [place] [phone] documented in this encounter Visit Diagnoses Diagnosis Presence of prosthetic heart valve documented in this encounter Care Teams Drilling Field Operator Relationship Specialty Start Date End Date Mary Ann Hickman MD [address] [place] [address] PCP - General Internal Medicine 08/03/24 documented as of this encounter
--- OUTSIDE RECORDS SUMMARY | 2025-07-04 20:35 | XMS_ITS | Encounter Summary ---
Author Organization [facility] Address [address] [place] [address] Care Team Providers Care Pigment Mixer Name Role Phone Mary Ann Hickman MD Primary Care Provider [phone] Encounter Details Date Type Department Care Team (Latest Contact Info) Description 01/08/2025 Lab Requisition [facility] - Main Lab 299 [facility] [place] [phone] Stevie Zuñiga MD [address] [place] [address] Presence of prosthetic heart valve; Acute posthemorrhagic anemia; Methicillin susceptible Staphylococcus aureus infection as the cause of diseases classified elsewhere Social History Tobacco Use Types Packs/Day Years [...] 07/05/2025 2:45 PM EDT Clinical Support Coumadin [address] [phone] 07/18/2025 11:00 AM EST Office Visit Orthopedic Surgery - [place] [address] [address] Rebel Acharya, DPM 175 [facility] [address] [place] [address] 09/10/2025 3:15 PM EST Office Visit Urogynecology [address] [phone] Stefanie Alvarado MD 580 [facility] [address] [place] [address] 09/18/2025 11:30 AM EST Office Visit Adult [facility] - [address] [phone] Mary Ann Hickman MD [address] [place] [address] documented as of this encounter Procedures Procedure Name Priority Date/Time Associated Diagnosis Comments COMPLETE BLOOD COUNT Routine 01/08/2025 8:32 AM EDT Presence of prosthetic heart valve Acute posthemorrhagic anemia Methicillin susceptible Staphylococcus aureus infection as the cause of diseases classified elsewhere COMPREHENSIVE METABOLIC PANEL Routine 01/08/2025 8:32 AM EDT Presence of prosthetic heart valve Acute posthemorrhagic anemia Methicillin susceptible Staphylococcus aureus infection as the cause of diseases classified elsewhere documented in this encounter Results * (ABNORMAL) Comprehensive metabolic panel (01/08/2025 8:32 AM EDT) Sodium 142 133 - 145 mmol/L LAB CHEMISTRY METHOD 01/08/2025 2:48 PM EDT [facility] Potassium 3.6 3.5 - 5.5 mmol/L LAB CHEMISTRY METHOD 01/08/2025 2:48 PM EDT [facility] Chloride 111(H) 96 - 110 mmol/L LAB CHEMISTRY METHOD 01/08/2025 2:48 PM EDT [facility] CO2 24 21 - 32 mmol/L LAB CHEMISTRY METHOD 01/08/2025 2:48 PM [facility] Anion Gap 7 3 - 11 LAB CHEMISTRY METHOD 01/08/2025 2:48 PM [facility] Glucose 120(H) 70 - 100 mg/dL LAB CHEMISTRY METHOD 01/08/2025 2:48 PM [facility] BUN 12 5 - 25 mg/dL LAB CHEMISTRY METHOD 01/08/2025 2:48 PM [facility] Creatinine 1.08 0.50 - 1.10 mg/dL LAB CHEMISTRY METHOD 01/08/2025 2:48 PM [facility] eGFR 55(L) >=60 mL/min/1. 73m2 LAB CHEMISTRY METHOD 01/08/2025 2:48 PM [facility] Comment:Calculation based on the Chronic Kidney Disease Epidemiology Collaboration (CKD-EPI) equation refit without adjustment for race. BUN/Creatinine Ratio 11.1 LAB CHEMISTRY METHOD 01/08/2025 2:48 PM [facility] Calcium 8.9 8.5 - 10.5 mg/dL LAB CHEMISTRY METHOD 01/08/2025 2:48 PM [facility] AST (SGOT) 12 10 - 42 unit/L LAB CHEMISTRY METHOD 01/08/2025 2:48 PM [facility] ALT (SGPT) 10 10 - 60 unit/L LAB CHEMISTRY METHOD 01/08/2025 2:48 PM [facility] Alkaline Phosphatase 78 42 - 121 unit/L LAB CHEMISTRY METHOD 01/08/2025 2:48 PM [facility] Total Protein 5.4(L) 6.0 - 8.0 g/dL LAB CHEMISTRY METHOD 01/08/2025 2:48 PM [facility] Albumin 2.6(L) 3.2 - 5.0 g/dL LAB CHEMISTRY METHOD 01/08/2025 2:48 PM [facility] Total Bilirubin 0.2 0.0 - 1.4 mg/dL LAB CHEMISTRY METHOD 01/08/2025 2:48 PM EDT [facility] Blood Venous blood specimen / Unknown Venipuncture / Unknown 01/08/2025 8:32 AM EDT 01/08/2025 10:28 AM EDT Stevie Zuñiga MD LAB BLOOD ORDERABLES Final Result [facility] [address] [place] [address], [place] [phone] * (ABNORMAL) Complete blood count (01/08/2025 8:32 AM EDT) WBC 3.6(L) 4.8 - 10.8 K/mcL LAB HEMETOLOGY METHOD 01/08/2025 11:42 AM [facility] RBC 3.30(L) 3.80 - 4.80 M/mcL LAB HEMETOLOGY METHOD 01/08/2025 11:42 AM [facility] Hemoglobin 9.8(L) 11.5 - 16.0 g/dL LAB HEMETOLOGY METHOD 01/08/2025 11:42 AM [facility] Hematocrit 32.2(L) 35.0 - 47.0 % LAB HEMETOLOGY METHOD 01/08/2025 11:42 AM T [facility] MCV 98.2(H) 79.0 - 98.0 FL LAB HEMETOLOGY METHOD 01/08/2025 11:42 AM [facility] MCH 29.9 27.0 - 32.0 pcg LAB HEMETOLOGY METHOD 01/08/2025 11:42 AM [facility] MCHC 30.4(L) 32.0 - 37.0 g/dL LAB HEMETOLOGY METHOD 01/08/2025 11:42 AM EDT [facility] RDW 15.7(H) 11.0 - 15.0 % LAB HEMETOLOGY METHOD 01/08/2025 11:42 AM EDT [facility] Platelets 154 130 - 400 K/mcL LAB HEMETOLOGY METHOD 01/08/2025 11:42 AM EDT [facility] MPV 11.0 7.0 - 11.0 FL LAB HEMETOLOGY METHOD 01/08/2025 11:42 AM EDT [facility] NRBC 0.0 <1.0 % LAB HEMETOLOGY METHOD 01/08/2025 11:42 AM EDT [facility] NRBC Absolute 0.00 <0.10 K/mcL LAB HEMETOLOGY METHOD 01/08/2025 11:42 AM T [facility] Blood Venous blood specimen / Unknown Venipuncture / Unknown 01/08/2025 8:32 AM EDT 01/08/2025 10:28 AM EDT us Stevie Zuñiga MD LAB BLOOD ORDERABLES Final Result [facility] [address] [place] [address], documented in this encounter Visit Diagnoses Diagnosis Presence of prosthetic heart valve Acute posthemorrhagic anemia Methicillin susceptible Staphylococcus aureus infection as the cause of diseases classified elsewhere documented in this encounter Care Teams Pigment Mixer Relationship Specialty Start Date End Date Mary Ann Hickman MD [address] [place] [address] PCP - General Internal Medicine 08/03/24 documented as of this encounter
--- OUTSIDE RECORDS SUMMARY | 2025-07-04 20:35 | XMS_ITS | Encounter Summary ---
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 Social History Tobacco [...] 07/05/2025 2:45 PM EDT Clinical Support Coumadin [address] [address] 07/18/2025 11:00 AM EST Office Visit Orthopedic Surgery - [place] [address] [phone] Rebel Acharya, DPM 175 [facility] [address] [place] [address] 09/10/2025 3:15 PM EST Office Visit Urogynecology [address] [phone] Stefanie Alvarado MD 580 [facility] [address] [place] [address] 09/18/2025 11:30 AM EST Office Visit Adult [facility] - [address] [phone] Mary Ann Hickman MD 444 [place], [place] documented as of this encounter Procedures Procedure Name Priority Date/Time Associated Diagnosis Comments PROTHROMBIN TIME WITH INR Routine 11/06/2024 8:10 AM EST Chronic kidney disease, unspecified Essential (primary) hypertension Anemia, unspecified 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 COMPLETE BLOOD COUNT Routine 11/06/2024 8:10 AM EST Chronic kidney disease, unspecified Essential (primary) hypertension Anemia, unspecified 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 BASIC METABOLIC PANEL Routine 11/06/2024 8:10 AM EST Chronic kidney disease, unspecified Essential (primary) hypertension Anemia, unspecified nursing home (current) use of 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 documented in this encounter Results * (ABNORMAL) Prothrombin time with INR (11/06/2024 8:10 AM EST) Protime 39.4(H) 10.6 - 13.9 sec LAB COAGULATION METHOD 11/06/2024 11:22 AM [facility] INR 3.2 LAB COAGULATION METHOD 11/06/2024 11:22 AM [facility] Blood Venous blood specimen / Unknown Venipuncture / Unknown 11/06/2024 8:10 AM EST 11/06/2024 11:07 AM EST Stevie Zuñiga MD LAB BLOOD ORDERABLES Final Result [facility] [address] [place] [address], * (ABNORMAL) Basic metabolic panel (11/06/2024 8:10 AM EST) Sodium 142 133 - 145 mmol/L LAB CHEMISTRY METHOD 11/06/2024 11:38 AM [facility] Potassium 3.3(L) 3.5 - 5.5 mmol/L LAB CHEMISTRY METHOD 11/06/2024 11:38 AM [facility] Chloride 110 96 - 110 mmol/L LAB CHEMISTRY METHOD 11/06/2024 11:38 AM [facility] CO2 27 21 - 32 mmol/L LAB CHEMISTRY METHOD 11/06/2024 11:38 AM [facility] Anion Gap 5 3 - 11 LAB CHEMISTRY METHOD 11/06/2024 11:38 AM [facility] Glucose 123(H) 70 - 100 mg/dL LAB CHEMISTRY METHOD 11/06/2024 11:38 AM [facility] BUN 10 5 - 25 mg/dL LAB CHEMISTRY METHOD 11/06/2024 11:38 AM [facility] Creatinine 0.84 0.50 - 1.10 mg/dL LAB CHEMISTRY METHOD 11/06/2024 11:38 AM [facility] eGFR 74 >=60 mL/min/1. 73m2 LAB CHEMISTRY METHOD 11/06/2024 11:38 AM [facility] Comment:Calculation based on the Chronic Kidney Disease Epidemiology Collaboration (CKD-EPI) equation refit without adjustment for race. BUN/Creatinine Ratio 11.9 LAB CHEMISTRY METHOD 11/06/2024 11:38 AM [facility] Calcium 8.9 8.5 - 10.5 mg/dL LAB CHEMISTRY METHOD 11/06/2024 11:38 AM [facility] Blood Venous blood specimen / Unknown Venipuncture / Unknown 11/06/2024 8:10 AM EST 11/06/2024 10:59 AM EST Stevie Zuñiga MD LAB BLOOD ORDERABLES Final Result [facility] [address] [place] [address], * (ABNORMAL) Complete blood count (11/06/2024 8:10 AM EST) WBC 8.2 4.8 - 10.8 K/mcL LAB HEMETOLOGY METHOD 11/06/2024 12:35 PM [facility] RBC 3.10(L) 3.80 - 4.80 M/mcL LAB HEMETOLOGY METHOD 11/06/2024 12:35 PM [facility] Hemoglobin 9.0(L) 11.5 - 16.0 g/dL LAB HEMETOLOGY METHOD 11/06/2024 12:35 PM [facility] Hematocrit 30.2(L) 35.0 - 47.0 % LAB HEMETOLOGY METHOD 11/06/2024 12:35 PM [facility] MCV 98.4(H) 79.0 - 98.0 FL LAB HEMETOLOGY METHOD 11/06/2024 12:35 PM [facility] MCH 29.3 27.0 - 32.0 pcg LAB HEMETOLOGY METHOD 11/06/2024 12:35 PM [facility] MCHC 29.8(L) 32.0 - 37.0 g/dL LAB HEMETOLOGY METHOD 11/06/2024 12:35 PM EST [facility] RDW 19.1(H) 11.0 - 15.0 % LAB HEMETOLOGY METHOD 11/06/2024 12:35 PM EST [facility] Platelets 266 130 - 400 K/mcL LAB HEMETOLOGY METHOD 11/06/2024 12:35 PM EST [facility] MPV 9.7 7.0 - 11.0 FL LAB HEMETOLOGY METHOD 11/06/2024 12:35 PM EST [facility] NRBC 0.0 <1.0 % LAB HEMETOLOGY METHOD 11/06/2024 12:35 PM EST [facility] NRBC Absolute 0.00 <0.10 K/mcL LAB HEMETOLOGY METHOD 11/06/2024 12:35 PM EST [facility] Blood Venous blood specimen / Unknown Venipuncture / Unknown 11/06/2024 8:10 AM EST 11/06/2024 11:06 AM EST us Stevie Zuñiga MD LAB BLOOD ORDERABLES Final Result [facility] [address] [place] [address], documented in this encounter Visit Diagnoses Diagnosis Chronic kidney disease, unspecified Essential (primary) hypertension Unspecified essential hypertension Anemia, unspecified nursing home (current) use of 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 Long-term (current) use of 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 documented in this encounter Additional Health Concerns Infection Onset Date Last Indicated Resolved Time Influenza 10/25/2024 10/25/2024 11/18/2024 7:04 PM EST documented as of this encounter Care Teams Manager Economic Relationship Specialty Start Date End Date Mary Ann Hickman MD [address] [place] [phone] PCP - General Internal Medicine 08/03/24 documented as of this encounter
--- OUTSIDE RECORDS SUMMARY | 2025-07-04 20:35 | XMS_ITS | Encounter Summary ---
Author Organization [facility] Address [address] [place] [address] Care Team Providers Care Management Aide Name Role Phone Mary Ann Hickman MD Primary Care Provider [phone] Encounter Details Date Type Department Care Team (Latest Contact Info) Description 01/13/[address] [facility] - Main Lab 299 [facility] [place] [phone] Stevie Zuñiga MD [address] [place] [phone] Presence of prosthetic heart valve; Acute posthemorrhagic [...] 07/05/2025 2:45 PM EDT Clinical Support Coumadin [address] [address] 07/18/2025 11:00 AM EST Office Visit Orthopedic Surgery - [place] [address] [phone] Rebel Acharya, DPM 175 [facility] [address] [place] [phone] 09/10/2025 3:15 PM EST Office Visit Urogynecology [address] [phone] Stefanie Alvarado MD 580 [facility] [address] [place] [address] 09/18/2025 11:30 AM EST Office Visit Adult [facility] - [address] [phone] Mary Ann Hickman MD [address] [place] [address] documented as of this encounter Visit Diagnoses Diagnosis Presence of prosthetic heart valve Acute posthemorrhagic anemia Methicillin susceptible Staphylococcus aureus infection as the cause of diseases classified elsewhere documented in this encounter Care Teams Management Aide Relationship Specialty Start Date End Date Mary Ann Hickman MD [address] [place] [address] PCP - General Internal Medicine 08/03/24 documented as of this encounter
--- OUTSIDE RECORDS SUMMARY | 2025-07-04 20:35 | XMS_ITS | Encounter Summary ---
Author Organization [facility] Address [address] [place] [address] Care Team Providers Care Calculus Professor Name Role Phone Mary Ann Hickman MD Primary Care Provider Encounter Details Date Type Department Care Team (Late Contact Info) Description 12/05/2024 Lab Requisition [facility] - Main Lab 299 [facility] [place] [phone] Stevie Zuñiga MD [address] [place] [phone] Unspecified atrial fibrillation (CMS/HCC V24, CMS/HCC V28) [...] PM EDT Clinical Support Coumadin Clinic [address] [address] 07/18/2025 11:00 AM EST Office Visit Orthopedic Surgery - [place] [address] [phone] Rebel Acharya, DPM [address] [facility] [address] [place] [address] 09/10/2025 3:15 PM EST Office Visit Urogynecology [address] [phone] Stefanie Alvarado MD 580 [facility] [address] [place] [address] 09/18/2025 11:30 AM EST Office Visit Adult [facility] - [address] [phone] Mary Ann Hickman MD [address] [place] [address] documented as of this encounter Visit Diagnoses Diagnosis Unspecified atrial fibrillation (CMS/HCC V24, CMS/HCC V28) documented in this encounter Care Teams Calculus Professor Relationship Specialty Start Date End Date Mary Ann Hickman MD [address] [place] [address] PCP - General Internal Medicine 08/03/24 documented as of this encounter
--- OUTSIDE RECORDS SUMMARY | 2025-07-04 20:35 | XMS_ITS | Encounter Summary ---
Author Organization [facility] Address [address] [place] [address] Care Team Providers Care Half Section Ironer Name Role Phone Mary Ann Hickman MD Primary Care Provider [phone] Encounter Details Date Type Department Care Team (Late Contact Info) Description 01/30/2025 Lab Requisition [facility] - Main Lab 299 [facility] [place] [phone] Stevie Zuñiga MD [address] [place] [address] Unspecified atrial fibrillation (CMS/HCC V24, CMS/HCC V28) [...] 07/05/2025 2:45 PM EDT Clinical Support Coumadin [address] [address] 07/18/2025 11:00 AM EST Office Visit Orthopedic Surgery - [place] [address] [phone] Rebel Acharya, DPM 175 [facility] [address] [place] [address] 09/10/2025 3:15 PM EST Office Visit Urogynecology [address] [phone] Stefanie Alvarado MD [address] [place] [address] [address] [place] [address] 09/18/2025 11:30 AM EST Office Visit [facility] [address] [phone] Mary Ann Hickman MD 444 [place], [place] documented as of this encounter Procedures Procedure Name Priority Date/Time Associated Diagnosis Comments PROTHROMBIN TIME WITH INR Routine 01/31/2025 6:09 AM EDT Unspecified atrial fibrillation ([facility]/HCC V24, [facility]/HCC V28) documented in this encounter Results * (ABNORMAL) Prothrombin time with INR (01/31/2025 6:09 AM EDT) Protime 21.0(H) 10.6 - 13.9 sec LAB COAGULATION METHOD 01/31/2025 10:39 AM EDT [facility] INR 1.7 LAB COAGULATION METHOD 01/31/2025 10:39 AM EDT [facility] Blood Venous blood specimen / Unknown Venipuncture / Unknown 01/31/2025 6:09 AM EDT 01/31/2025 9:48 AM EDT us Stevie Zuñiga MD LAB BLOOD ORDERABLES Final Result [facility] [address] [place], [place] [address] [phone] documented in this encounter Visit Diagnoses Diagnosis Unspecified atrial fibrillation (CMS/HCC V24, CMS/HCC V28) documented in this encounter Care Teams Half Section Ironer Relationship Specialty Start Date End Date Mary Ann Hickman MD [address] [place] [phone] PCP - General Internal Medicine 08/03/24 documented as of this encounter
--- OUTSIDE RECORDS SUMMARY | 2025-07-04 20:35 | XMS_ITS | Encounter Summary ---
Author Organization [facility] Address [address] [place] [address] Care Team Providers Care Telephonic Nurse Name Role Phone Mary Ann Hickman MD Primary Care Provider [phone] Encounter Details Date Type Department Care Team (Late Contact Info) Description 02/07/[address] [facility] - Main Lab 299 [facility] [place] [phone] Stevie Zuñiga MD [address] [place] [address] Unspecified atrial fibrillation (CMS/HCC V24, CMS/HCC V28) [...] PM EDT Clinical Support Coumadin Clinic [address] [phone] 07/18/2025 11:00 AM EST Office Visit Orthopedic Surgery - [place] [address] [phone] Rebel Acharya, DPM 175 [facility] [address] [place] [address] 09/10/2025 3:15 PM EST Office Visit Urogynecology [address] [phone] Stefanie Alvarado MD [address] [place] [address] [address] [place] [address] 09/18/2025 11:30 AM EST Office Visit [facility] [address] [phone] Mary Ann Hickman MD 444 [place], [place] documented as of this encounter Procedures Procedure Name Priority Date/Time Associated Diagnosis Comments PROTHROMBIN TIME WITH INR Routine 02/07/2025 6:00 AM EDT Unspecified atrial fibrillation ([facility]/HCC V24, [facility]/HCC V28) documented in this encounter Results * (ABNORMAL) Prothrombin time with INR (02/07/2025 6:00 AM EDT) Protime 36.3(H) 10.6 - 13.9 sec LAB COAGULATION METHOD 02/07/2025 9:05 AM EDT [facility] INR 2.9 LAB COAGULATION METHOD 02/07/2025 9:05 AM EDT [facility] Blood Venous blood specimen / Unknown Venipuncture / Unknown 02/07/2025 6:00 AM EDT 02/07/2025 8:28 AM EDT us Stevie Zuñiga MD LAB BLOOD ORDERABLES Final Result [facility] [address] [place], [place] [address] [phone] documented in this encounter Visit Diagnoses Diagnosis Unspecified atrial fibrillation (CMS/HCC V24, CMS/HCC V28) documented in this encounter Care Teams Telephonic Nurse Relationship Specialty Start Date End Date Mary Ann Hickman MD [address] [place] [phone] PCP - General Internal Medicine 08/03/24 documented as of this encounter
--- OUTSIDE RECORDS SUMMARY | 2025-07-04 20:35 | XMS_ITS | Encounter Summary ---
Author Organization [facility] Address [address] [place] [address] Care Team Providers Care Figure Refinisher And Repairer Name Role Phone Mary Ann Hickman MD Primary Care Provider [phone] Encounter Details Date Type Department Care Team (Late Contact Info) Description 02/11/2025 Lab Requisition [facility] - Main Lab 299 [facility] [place] [address] Stevie Zuñiga MD [address] [place] [address] Unspecified atrial fibrillation (CMS/HCC V24, CMS/HCC V28); [...] 07/05/2025 2:45 PM EDT Clinical Support Coumadin [address] [address] 07/18/2025 11:00 AM EST Office Visit Orthopedic Surgery - [place] [address] [address] Rebel Acharya, DPM 175 [facility] [address] [place] [address] 09/10/2025 3:15 PM EST Office Visit Urogynecology [address] [phone] Stefanie Alvarado MD 580 [facility] [address] [place] [address] 09/18/2025 11:30 AM EST Office Visit [facility] - [address] [phone] Mary Ann Hickman MD 444 [place], [place] documented as of this encounter Procedures Procedure Name Priority Date/Time Associated Diagnosis Comments PROTHROMBIN TIME WITH INR Routine 02/12/2025 8:31 AM EDT Unspecified atrial fibrillation (CMS/HCC V24, CMS/HCC V28) Essential (primary) hypertension COMPLETE BLOOD COUNT Routine 02/12/2025 8:31 AM EDT Unspecified atrial fibrillation (CMS/HCC V24, CMS/HCC V28) Essential (primary) hypertension BASIC METABOLIC PANEL Routine 02/12/2025 8:31 AM EDT Unspecified atrial fibrillation (CMS/HCC V24, CMS/HCC V28) Essential (primary) hypertension documented in this encounter Results * (ABNORMAL) Complete blood count (02/12/2025 8:31 AM EDT) [facility] WBC 6.3 4.8 - 10.8 K/[facility] LAB HEMETOLOGY METHOD 02/12/2025 12:17 PM EDT [facility] RBC 3.80 3.80 - 4.80 M/[facility] LAB HEMETOLOGY METHOD 02/12/2025 12:17 PM EDT [facility] Hemoglobin 11.8 11.5 - 16.0 g/dL LAB HEMETOLOGY METHOD 02/12/2025 12:17 PM [facility] Hematocrit 36.8 35.0 - 47.0 % LAB HEMETOLOGY METHOD 02/12/2025 12:17 PM [facility] MCV 96.8 79.0 - 98.0 FL LAB HEMETOLOGY METHOD 02/12/2025 12:17 PM EDT [facility] MCH 31.1 27.0 - 32.0 pcg LAB HEMETOLOGY METHOD 02/12/2025 12:17 PM [facility] MCHC 32.1 32.0 - 37.0 g/dL LAB HEMETOLOGY METHOD 02/12/2025 12:17 PM [facility] RDW 15.3(H) 11.0 - 15.0 % LAB HEMETOLOGY METHOD 02/12/2025 12:17 PM [facility] Platelets 210 130 - 400 K/mcL LAB HEMETOLOGY METHOD 02/12/2025 12:17 PM [facility] MPV 10.6 7.0 - 11.0 FL LAB HEMETOLOGY METHOD 02/12/2025 12:17 PM [facility] NRBC 0.0 <1.0 % LAB HEMETOLOGY METHOD 02/12/2025 12:17 PM [facility] NRBC Absolute 0.00 <0.10 K/mcL LAB HEMETOLOGY METHOD 02/12/2025 12:17 PM [facility] Blood Venous blood specimen / Unknown Venipuncture / Unknown 02/12/2025 8:31 AM EDT 02/12/2025 10:55 AM EDT us Stevie Zuñiga MD LAB BLOOD ORDERABLES Final Result [facility] [address] [place] [address], * (ABNORMAL) Basic metabolic panel (02/12/2025 8:31 AM EDT) Sodium 146(H) 133 - 145 mmol/L LAB CHEMISTRY METHOD [facility]20[facility] 1[facility] Potassium 3.9 3.5 - 5.5 mmol/L LAB CHEMISTRY METHOD 02/12/2025 1:11 PM [facility] Chloride 114(H) 96 - 110 mmol/L LAB CHEMISTRY METHOD 02/12/2025 1:11 PM [facility] CO2 21 21 - 32 mmol/L LAB CHEMISTRY METHOD 02/12/2025 1:11 PM [facility] Anion Gap 11 3 - 11 LAB CHEMISTRY METHOD 02/12/2025 1:11 PM [facility] Glucose 112(H) 70 - 100 mg/dL LAB CHEMISTRY METHOD 02/12/2025 1:11 PM [facility] BUN 27(H) 5 - 25 mg/dL LAB CHEMISTRY METHOD 02/12/2025 1:11 PM [facility] Creatinine 1.14(H) 0.50 - 1.10 mg/dL LAB CHEMISTRY METHOD 02/12/2025 1:11 [facility] eGFR 51(L) >=60 mL/min/1. 73m2 LAB CHEMISTRY METHOD 02/12/2025 1:11 PM [facility] Comment:Calculation based on the Chronic Kidney Disease Epidemiology Collaboration (CKD-EPI) equation refit without adjustment for race. BUN/Creatinine Ratio 23.7 LAB CHEMISTRY METHOD 02/12/2025 1:11 PM [facility] Calcium 8.7 8.5 - 10.5 mg/dL LAB CHEMISTRY METHOD 02/12/2025 1:11 PM EDT [facility] Blood Venous blood specimen / Unknown Venipuncture / Unknown 02/12/2025 8:31 AM EDT 02/12/2025 10:55 AM EDT Stevie Zuñiga MD LAB BLOOD ORDERABLES Final Result Performing Organization Address [facility]/ZIP Co de Phone Number [facility] [address] [place] [address], [place] [phone] * (ABNORMAL) Prothrombin time with INR (02/12/2025 8:31 AM EDT) Protime 19.5(H) 10.6 - 13.9 sec LAB COAGULATION METHOD 02/12/2025 11:23 AM EDT [facility] INR 1.6 LAB COAGULATION METHOD 02/12/2025 11:23 AM EDT [facility] Blood Venous blood specimen / Unknown Venipuncture / Unknown 02/12/2025 8:31 AM EDT 02/12/2025 10:55 AM EDT Stevie Zuñiga MD LAB BLOOD ORDERABLES Final Result Performing Organization Address City/[facility]/ZIP Co de Phone Number [facility] [address] [place] [address], [place] [phone] documented in this encounter Visit Diagnoses Diagnosis Unspecified atrial fibrillation (CMS/HCC V24, CMS/HCC V28) Essential (primary) hypertension Unspecified essential hypertension documented in this encounter Care Teams Figure Refinisher And Repairer Relationship Specialty Start Date End Date Mary Ann Hickman MD [address] [place] [address] PCP - General Internal Medicine 08/03/24 documented as of this encounter
--- OUTSIDE RECORDS SUMMARY | 2025-07-04 20:35 | XMS_ITS | Encounter Summary ---
Author Organization [facility] Address [address] [place] [address] Care Team Providers Care Barrelhead Inspector Name Role Phone Mary Ann Hickman MD Primary Care Provider [phone] Encounter Details Date Type Department Care Team (Late Contact Info) Description 01/10/2025 Lab Requisition [facility] - Main Lab 299 [facility] [place] [phone] Stevie Zuñiga MD [address] [place] [address] Presence of prosthetic heart valve Social History [...] 07/05/2025 2:45 PM EDT Clinical Support Coumadin [address] [address] 07/18/2025 11:00 AM EST Office Visit Orthopedic Surgery - [place] 250 175 [facility] 250 [place] [phone] Rebel Acharya, DPM 175 [facility] 250 [place] [address] 09/10/2025 3:15 PM EST Office Visit Urogynecology [address] [phone] Stefanie Alvarado MD [address] [place] [address] [address] [place] [address] 09/18/2025 11:30 AM EST Office Visit Adult [facility] - [address] [phone] Mary Ann Hickman MD [address] [place] [address] documented as of this encounter Procedures Procedure Name Priority Date/Time Associated Diagnosis Comments PROTHROMBIN TIME WITH INR Routine 01/10/2025 6:44 AM EDT Presence of prosthetic heart valve documented in this encounter Results * (ABNORMAL) Prothrombin time with INR (01/10/2025 6:44 AM EDT) Protime 26.6(H) 10.6 - 13.9 sec LAB COAGULATION METHOD 01/10/2025 9:22 AM EDT [facility] INR 2.1 LAB COAGULATION METHOD 01/10/2025 9:22 AM EDT [facility] Blood Venous blood specimen / Unknown Venipuncture / Unknown 01/10/2025 6:44 AM EDT 01/10/2025 8:39 AM EDT us Stevie Zuñiga MD LAB BLOOD ORDERABLES Final Result [facility] 299 [place] [address], [place] [phone] documented in this encounter Visit Diagnoses Diagnosis Presence of prosthetic heart valve documented in this encounter Care Teams Barrelhead Inspector Relationship Specialty Start Date End Date Mary Ann Hickman MD 4 [place] [address] PCP - General Internal Medicine 08/03/24 documented as of this encounter
--- OUTSIDE RECORDS SUMMARY | 2025-07-04 20:35 | XMS_ITS | Encounter Summary ---
Author Organization [facility] [address] Address [address] [place] [address] Care Team Providers Care Data Keyer Name Role Phone Mary Ann Hickman MD Primary Care Provider [phone] Encounter Details Date Type Department Care Team (Late Contact Info) Description 01/11/[address] [facility] - Main Lab 299 [facility] [place] [phone] Stevie Zuñiga MD [address] [place] [address] Unspecified atrial fibrillation (CMS/HCC V24, CMS/HCC V28) [...] 2:45 PM EDT Clinical Support Coumadin Clinic [address] [address] 07/18/2025 11:00 AM EST Office Visit Orthopedic Surgery - [place] [address] [phone] Rebel Acharya, DPM 175 [facility] [address] [place] [address] 09/10/2025 3:15 PM EST Office Visit Urogynecology [address] [phone] Stefanie Alvarado MD 580 [facility] [address] [place] [address] 09/18/2025 11:30 AM EST Office Visit Adult [facility] - [address] [phone] Mary Ann Hickman MD [address] [place] [address] documented as of this encounter Visit Diagnoses Diagnosis Unspecified atrial fibrillation (CMS/HCC V24, CMS/HCC V28) documented in this encounter Care Teams Data Keyer Relationship Specialty Start Date End Date Mary Ann Hickman MD [address] [place] [address] PCP - General Internal Medicine 08/03/24 documented as of this encounter
--- OUTSIDE RECORDS SUMMARY | 2025-07-04 20:35 | XMS_ITS | Encounter Summary ---
Author Organization [facility] Address [address] [place] [address] Care Team Providers Care Resident Services Coordinator Name Role Phone Mary Ann Hickman MD Primary Care Provider [phone] Encounter Details Date Type Department Care Team (Late Contact Info) Description 11/29/2024 Lab Requisition [facility] - Main Lab 299 [facility] [place] [phone] Stevie Zuñiga MD [address] [place] [address] Unspecified atrial fibrillation (CMS/HCC V24, CMS/HCC V28) [...] 2:45 PM EDT Clinical Support Coumadin Clinic [address] [address] 07/18/2025 11:00 AM EST Office Visit Orthopedic Surgery - [place] [address] [phone] Rebel Acharya, DPM 175 [facility] [address] [place] [address] 09/10/2025 3:15 PM EST Office Visit Urogynecology [address] [phone] Stefanie Alvarado MD [address] [place] [address] [address] [place] [address] 09/18/2025 11:30 AM EST Office Visit Adult [facility] - [address] [phone] Mary Ann Hickman MD 444 [place], [place] documented as of this encounter Procedures Procedure Name Priority Date/Time Associated Diagnosis Comments PROTHROMBIN TIME WITH INR Routine 11/30/2024 6:45 AM EDT Unspecified atrial fibrillation (CMS/HCC) documented in this encounter Results * (ABNORMAL) Prothrombin time with INR (11/30/2024 6:45 AM EDT) Protime 26.4(H) 10.6 - 13.9 sec LAB COAGULATION METHOD 11/30/2024 10:08 AM EDT [facility] INR 2.1 LAB COAGULATION METHOD 11/30/2024 10:08 AM EDT [facility] Blood Venous blood specimen / Unknown Venipuncture / Unknown 11/30/2024 6:45 AM EDT 11/30/2024 9:32 AM EDT us Stevie Zuñiga MD LAB BLOOD ORDERABLES Final Result [facility] 299 [place] [address], documented in this encounter Visit Diagnoses Diagnosis Unspecified atrial fibrillation (CMS/HCC V24, CMS/HCC V28) documented in this encounter Care Teams Resident Services Coordinator Relationship Specialty Start Date End Date Mary Ann Hickman MD [address] [place] [phone] PCP - General Internal Medicine 08/03/24 documented as of this encounter
--- OUTSIDE RECORDS SUMMARY | 2025-07-04 20:35 | XMS_ITS | Encounter Summary ---
Author Organization [facility] Address [address] [place] [address] Care Team Providers Care Director Of Preclinical Research Name Role Phone Mary Ann Hickman MD Primary Care Provider [phone] Encounter Details Date Type Department Care Team (Late Contact Info) Description 11/23/2024 Lab Requisition [facility] - Main Lab 299 [facility] [place] [phone] Steive Zuñiga MD [address] [place] [address] Unspecified atrial fibrillation (CMS/HCC V24, CMS/HCC V28) [...] 2:45 PM EDT Clinical Support Coumadin Clinic [address] [address] 07/18/2025 11:00 AM EST Office Visit Orthopedic Surgery - [place] [address] [phone] Rebel Acharya, DPM 175 [facility] [address] [place] [address] 09/10/2025 3:15 PM EST Office Visit Urogynecology [address] [phone] Stefanie Alvarado MD [address] [place] [address] [address] [place] [address] 09/18/2025 11:30 AM EST Office Visit [facility] - [address] [phone] Mary Ann Hickman MD 444 [place], [place] documented as of this encounter Procedures Procedure Name Priority Date/Time Associated Diagnosis Comments PROTHROMBIN TIME WITH INR Routine 11/23/2024 7:03 AM EDT Unspecified atrial fibrillation (CMS/HCC) documented in this encounter Results * (ABNORMAL) Prothrombin time with INR (11/23/2024 7:03 AM EDT) Protime 34.4(H) 10.6 - 13.9 sec LAB COAGULATION METHOD 11/23/2024 9:22 AM EDT [facility] INR 2.8 LAB COAGULATION METHOD 11/23/2024 9:22 AM EDT [facility] Blood Venous blood specimen / Unknown Venipuncture / Unknown 11/23/2024 7:03 AM EDT 11/23/2024 8:23 AM EDT us Stevie Zuñiga MD LAB BLOOD ORDERABLES Final Result [facility] 299 [place] [address], documented in this encounter Visit Diagnoses Diagnosis Unspecified atrial fibrillation (CMS/HCC V24, CMS/HCC V28) documented in this encounter Care Teams Director Of Preclinical Research Relationship Specialty Start Date End Date Mary Ann Hickman MD [address] [place] [phone] PCP - General Internal Medicine 08/03/24 documented as of this encounter
--- OUTSIDE RECORDS SUMMARY | 2025-07-04 20:35 | XMS_ITS | Encounter Summary ---
Author Organization [facility] Address [address] [place] [address] Care Team Providers Care Tent Assembler Name Role Phone Mary Ann Hickman MD Primary Care Provider [phone] Encounter Details Date Type Department Care Team (Late Contact Info) Description 02/16/2025 Lab Requisition [facility] - Main Lab 299 [facility] [place] [phone] Stevie Zuñiga MD [address] [place] [address] Essential (primary) hypertension; Unspecified atrial fibrillation (CMS/HCC [...] 07/05/2025 2:45 PM EDT Clinical Support Coumadin [address] [address] 07/18/2025 11:00 AM EST Office Visit Orthopedic Surgery - [place] [address] [phone] Rebel Acharya, DPM 175 [facility] [address] [place] [address] 09/10/2025 3:15 PM EST Office Visit Urogynecology [address] [phone] Stefanie Alvarado MD 580 [facility] [address] [place] [address] 09/18/2025 11:30 AM EST Office Visit Adult [facility] - [address] [phone] Mary Ann Hickman MD 444 [place], [place] documented as of this encounter Procedures Procedure Name Priority Date/Time Associated Diagnosis Comments PROTHROMBIN TIME WITH INR Routine 02/19/2025 8:40 AM EDT Essential (primary) hypertension Unspecified atrial fibrillation (CMS/HCC V24, CMS/HCC V28) COMPLETE BLOOD COUNT Routine 02/19/2025 8:40 AM EDT Essential (primary) hypertension Unspecified atrial fibrillation (CMS/HCC V24, CMS/HCC V28) BASIC METABOLIC PANEL Routine 02/19/2025 8:40 AM EDT Essential (primary) hypertension Unspecified atrial fibrillation (CMS/HCC V24, CMS/HCC V28) documented in this encounter Results * (ABNORMAL) Prothrombin time with INR (02/19/2025 8:40 AM EDT) Protime 25.4(H) 10.6 - 13.9 sec LAB COAGULATION METHOD 02/19/2025 11:[address] [facility] INR 2.0 LAB COAGULATION METHOD 02/19/2025 11:[address] [facility] Blood Venous blood specimen / Unknown Venipuncture / Unknown 02/19/2025 8:40 AM EDT 02/19/2025 10:28 AM EDT Stevie Zuñiga MD LAB BLOOD ORDERABLES Final Result [facility] [address] [place] [address], * (ABNORMAL) Complete blood count (02/19/2025 8:40 AM EDT) WBC 4.8 4.8 - 10.8 K/mcL LAB HEMETOLOGY METHOD 02/19/2025 12:[address] [facility] RBC 3.80 3.80 - 4.80 M/mcL LAB HEMETOLOGY METHOD 02/19/2025 12:[address] [facility] Hemoglobin 11.3(L) 11.5 - 16.0 g/dL LAB HEMETOLOGY METHOD 02/19/2025 12:[address] [facility] Hematocrit 36.2 35.0 - 47.0 % LAB HEMETOLOGY METHOD 02/19/2025 12:[facility] MCV 94.3 79.0 - 98.0 FL LAB HEMETOLOGY METHOD 02/19/2025 12:30 [facility] MCH 29.4 27.0 - 32.0 pcg LAB HEMETOLOGY METHOD 02/19/2025 12:30 PM [facility] MCHC 31.2(L) 32.0 - 37.0 g/dL LAB HEMETOLOGY METHOD 02/19/2025 12:30 PM [facility] RDW 15.8(H) 11.0 - 15.0 % LAB HEMETOLOGY METHOD 02/19/2025 12:[address] [facility] Platelets 190 130 - 400 K/mcL LAB HEMETOLOGY METHOD 02/19/2025 12:[address] [facility] MPV 10.6 7.0 - 11.0 FL LAB HEMETOLOGY METHOD 02/19/2025 12:[address] [facility] NRBC 0.0 <1.0 % LAB HEMETOLOGY METHOD 02/19/2025 12:[address] [facility] NRBC Absolute 0.00 <0.10 K/mcL LAB HEMETOLOGY METHOD 02/19/2025 12:[address] [facility] Blood Venous blood specimen / Unknown Venipuncture / Unknown 02/19/2025 8:40 AM EDT 02/19/2025 10:28 AM EDT Stevie Zuñiga MD LAB BLOOD ORDERABLES Final Result [facility] [address] [place] [address], [place] [phone] * (ABNORMAL) Basic metabolic panel (02/19/2025 8:40 AM EDT) Sodium 145 133 - 145 mmol/L LAB CHEMISTRY METHOD 02/19/2025 12:54 PM [facility] Potassium 3.5 3.5 - 5.5 mmol/L LAB CHEMISTRY METHOD 02/19/2025 12:54 PM [facility] Chloride 117(H) 96 - 110 mmol/L LAB CHEMISTRY METHOD 02/19/2025 12:54 PM [facility] CO2 20(L) 21 - 32 mmol/L LAB CHEMISTRY METHOD 02/19/2025 12:54 PM [facility] Anion Gap 8 3 - 11 LAB CHEMISTRY METHOD 02/19/2025 12:54 PM [facility] Glucose 126(H) 70 - 100 mg/dL LAB CHEMISTRY METHOD 02/19/2025 12:[address] [facility] BUN 19 5 - 25 mg/dL LAB CHEMISTRY METHOD 02/19/2025 12:[address] [facility] Creatinine 0.98 0.50 - 1.10 mg/dL LAB CHEMISTRY METHOD 02/19/2025 12:[address] [facility] eGFR 61 >=60 mL/min/1. 73m2 LAB CHEMISTRY METHOD 02/19/2025 12:[address] [facility] Comment:Calculation based on the Chronic Kidney Disease Epidemiology Collaboration (CKD-EPI) equation refit without adjustment for race. BUN/Creatinine Ratio 19.4 LAB CHEMISTRY METHOD 02/19/2025 12:[address] [facility] Calcium 8.6 8.5 - 10.5 mg/dL LAB CHEMISTRY METHOD 02/19/2025 12:[address] [facility] Blood Venous blood specimen / Unknown Venipuncture / Unknown 02/19/2025 8:40 AM EDT 02/19/2025 10:28 AM EDT Stevie Zuñiga MD LAB BLOOD ORDERABLES Final Result [facility] [address] [place] [address], documented in this encounter Visit Diagnoses Diagnosis Essential (primary) hypertension Unspecified essential hypertension Unspecified atrial fibrillation (CMS/HCC V24, CMS/HCC V28) documented in this encounter Care Teams Tent Assembler Relationship Specialty Start Date End Date Mary Ann Hickman MD [address] [place] [address] PCP - General Internal Medicine 08/03/24 documented as of this encounter
--- OUTSIDE RECORDS SUMMARY | 2025-07-04 20:35 | XMS_ITS | Encounter Summary ---
Author Organization [facility] Address [address] [place] [address] Care Team Providers Care [employer]ometric[employer] Professor Name Role Phone MaryA nn Hickman MD Primary Care Provider [phone] Encounter Details Date Type Department Care Team (Late Contact Info) Description 12/03/[address] [facility] - Main Lab 299 [facility] [place] [phone] Stevie Zuñiga MD [address] [place] [address] Unspecified atrial fibrillation (CMS/HCC V24, CMS/HCC V28) [...] 07/05/2025 2:45 PM EDT Clinical Support Coumadin [address] [phone] 07/18/2025 11:00 AM EST Office Visit Orthopedic Surgery - [place] [address] [phone] Rebel Acharya, DPM 175 [facility] [address] [place] [phone] 09/10/2025 3:15 PM EST Office Visit Urogynecology [address] [phone] Stefanie Alvarado MD [address] [place] [address] [address] [place] [address] 09/18/2025 11:30 AM EST Office Visit Adult [facility] - [address] [phone] Mary Ann Hickman MD 444 [place], [place] documented as of this encounter Procedures Procedure Name Priority Date/Time Associated Diagnosis Comments PROTHROMBIN TIME WITH INR Routine 12/04/2024 8:23 AM EDT Unspecified atrial fibrillation (CMS/HCC) documented in this encounter Results * (ABNORMAL) Prothrombin time with INR (12/04/2024 8:23 AM EDT) Protime 21.1(H) 10.6 - 13.9 sec LAB COAGULATION METHOD 12/04/2024 11:13 AM EDT [facility] INR 1.7 LAB COAGULATION METHOD 12/04/2024 11:13 AM EDT [facility] Blood Venous blood specimen / Unknown Venipuncture / Unknown 12/04/2024 8:23 AM EDT 12/04/2024 10:43 AM EDT us Stevie Zuñiga MD LAB BLOOD ORDERABLES Final Result [facility] [address] [place] [address], documented in this encounter Visit Diagnoses Diagnosis Unspecified atrial fibrillation (CMS/HCC V24, CMS/HCC V28) documented in this encounter Care Teams [employer] Professor Relationship Specialty Start Date End Date Mary Ann Hickman MD [address] [place] [phone] PCP - General Internal Medicine 08/03/24 documented as of this encounter
--- OUTSIDE RECORDS SUMMARY | 2025-07-04 20:35 | XMS_ITS | Encounter Summary ---
Author Organization [facility] Address [address] [place] [address] Care Team Providers Care Skilled Helper Name Role Phone Mary Ann Hickman MD Primary Care Provider [phone] Encounter Details Date Type Department Care Team (Latest Contact Info) Description 01/21/2025 Lab Requisition [facility] - Main Lab 299 [facility] [place] [phone] Stevie Zuñiga MD [address] [place] [address] Presence of prosthetic heart valve; Acute posthemorrhagic [...] 07/05/2025 2:45 PM EDT Clinical Support Coumadin [address] [phone] 07/18/2025 11:00 AM EST Office Visit Orthopedic Surgery - [place] [address] [phone] Rebel Acharya, DPM 175 [facility] [address] [place] [phone] 09/10/2025 3:15 PM EST Office Visit Urogynecology [address] [phone] Stefanie Alvarado MD 580 [facility] [address] [place] [address] 09/18/2025 11:30 AM EST Office Visit Adult [facility] - [address] [phone] Mary Ann Hickman MD [address] [place] [address] documented as of this encounter Visit Diagnoses Diagnosis Presence of prosthetic heart valve Acute posthemorrhagic anemia Methicillin susceptible Staphylococcus aureus infection as the cause of diseases classified elsewhere documented in this encounter Care Teams Skilled Helper Relationship Specialty Start Date End Date Mary Ann Hickman MD [address] [place] [address] PCP - General Internal Medicine 08/03/24 documented as of this encounter
== END 2025-07-04 14:56 | disposition home or self-care (01) ==
LOC: HO.HSM 14:21
PROVIDERS: PCP Internal Medicine; Visit Provider Psychiatry & Neurology Neurology
DX: G43.909 Migraine, unspecified, not intractable, without status migrainosus (principal); M48.07 Spinal stenosis, lumbosacral region
CPT/HCPCS: 99214

== ENCOUNTER → 2025-07-04 14:21 | Outpatient (BNVA) | payer MEDICARE, MEDICAID, SELFPAY | PROVIDERS: PCP Internal Medicine; Visit Provider Psychiatry & Neurology Neurology | DX: G43.909 Migraine, unspecified, not intractable, without status migrainosus (principal); M48.07 Spinal stenosis, lumbosacral region | CPT/HCPCS: 99212 ==